=== PATIENT | female | born 1950 | race American Indian/Alaskan Native ===

== ENCOUNTER 2016-05-03 11:47 | Outpatient (CLI) | payer MEDICARE ==
--- NOTE | 2016-05-05 09:00 | Mammography Report ---
BILATERAL DIGITAL SCREENING MAMMOGRAM WITH CAD: FINDINGS: No prior studies. The images are quite limited technically due to the patient's clinical condition including being wheelchair-bound and having a protuberant abdomen which makes positioning extremely difficult. The study is read with these limitations. The parenchyma is fibrofatty with no evidence of focal masses or architectural distortion. No suspicious calcifications are seen. The axillary tail and axilla of each breast are not included on these images due to the above factors. IMPRESSION: Negative technically limited study. BI-RADS CATEGORY: 2 = Benign ACR BI-RADS MAMMOGRAPHIC CODES: 0 = Needs additional imaging evaluation; 1 = Negative; 2 = Benign; 3 = Probably benign; 4 = Suspicious; 5 = Malignant; 6 = Known biopsy-proven malignancy COMMENT: 1. Dense breast tissue, i.e., adenosis, fibrocystic changes, etc., may obscure an underlying neoplasm. 2. Approximately 10% of cancers are not detected with mammography. 3. A negative mammography report should not delay biopsy if a clinically suspicious mass is present. RECOMMENDATION: Annual screening. COMMENT: Patient follow-up letters are generated in [place].
== END 2016-05-03 11:48 | disposition home or self-care (01) ==
LOC: MAMMO 11:47
PROVIDERS: ATTEND Internal Medicine Geriatric Medicine
DX: Z12.31 Encounter for screening mammogram for malignant neoplasm of breast (principal)
CPT/HCPCS: 77067; G0202

== ENCOUNTER 2017-04-14 13:46 | Outpatient (CLI) | payer MEDICARE, OTHER ==
[2017-04-14 14:28] LABS: Blood Urea Nitrogen 13 mg/dL (7-17)
--- NOTE | 2017-04-15 16:15 | Magnetic Resonance Report ---
FINAL REPORT PROCEDURE: MR BRAIN WO/W CON TECHNIQUE: Magnetic resonance imaging of the brain was performed before and after the IV injection of paramagnetic contrast. HISTORY: MENINGIOMA COMPARISON: No prior studies are available for comparison. FINDINGS: Diffusion-weighted images failed to demonstrate any hyperintense signal abnormalities. Cerebral sulci and ventricles are within normal limits for patient's age. An extra-axial or intra-axial fluid collection is not identified. An old lacunar infarct is noted in the left thalamus. A slightly heterogeneous mass lesion measuring about 1.6 centimeters is noted in the posterior right parietal region which appears to demonstrate meningeal attachment causing cortical buckling. It is predominantly isointense on T1 and T2 weighted images not associated with any edema of the underlying brain parenchyma. Postcontrast images demonstrate diffuse heterogeneous enhancement. There is no evidence of any dural tail. A 2.5 millimeter focal area of enhancement is noted left basal ganglia without any associated distinctive focal abnormality on the noncontrast images. Posterior fossa structures are within normal limits. IMPRESSION: A right posterior parietal mass lesion most likely represents an extra-axial lesion such as meningioma. Comparison with any prior studies would be of help to differentiated from other etiologies such as a metastatic deposit. 2.5 millimeter focal enhancement in the left basal ganglia most likely represents a prominent vascular structure. Comparison with any prior studies would be of help. Otherwise follow-up studies are recommended. Old lacunar infarct right thalamus.
== END 2017-04-14 13:47 | disposition home or self-care (01) ==
LOC: MRI 13:46
PROVIDERS: ATTEND Family Medicine
DX: D32.9 Benign neoplasm of meninges, unspecified (principal); I63.8 Other cerebral infarction; I11.0 Hypertensive heart disease with heart failure; I50.9 Heart failure, unspecified; E11.9 Type 2 diabetes mellitus without complications
CPT/HCPCS: 36415; 70553; 82565; 84520; A9577

== ENCOUNTER 2017-08-31 10:00 | Day surgery (SDC) | payer MEDICARE, OTHER ==
[~2017-08-31 10:00] MED LIST: TETRACAINE 0.5% OS PRN
[2017-08-31] MEDS: VIGAMOX OS SCH ×3 (12:00→12:10)
[2017-08-31] MEDS: AK-Dilate OS SCH ×3 (12:00→12:10)
[2017-08-31] MEDS: MYDRIACYL OS SCH ×3 (12:00→12:10)
[2017-08-31] MEDS ORDERED: WATER FOR IRRIG STERILE IR ONE (12:37)
[2017-08-31] MEDS ORDERED: VERSED ONE ×2 (12:45)
[2017-08-31] MEDS ORDERED: SUBLIMAZE ONE ×2 (13:11)
[2017-08-31] MEDS ORDERED: DIAMOX PO ONE (13:19)
--- NOTE | 2017-08-31 13:20 | Operative Report ---
Operative Report Operative Report: PATIENT'S NAME: DATE OF : DATE OF SURGERY: 08/31/2017 PREOPERATIVE DIAGNOSIS: Cataract left eye POSTOPERATIVE DIAGNOSIS: Same OPERATIVE PROCEDURE: Phacoemulsification with intraocular lens implantation, left eye SURGEON: Nallely Solis M.D. SMUTTER SURGEON: Ar Lens: ao60 22.5 D ANESTHESIA: Monitored anesthesia care in combination with topical and intracameral anesthesia because of the established specific risk of reflux, arrhythmias, or anxiety attacks associated with ocular manipulation, as well as the difficulty of the morphologist to manage such potentially catastrophic events while simultaneously attempting to complete the surgical procedure and was deemed necessary for the patient's safety to have an Air Chipper present during the procedure whenever possible. An Air Chipper was utilized to regulate the intravenous sedation of the patient so the patient was cooperative yet not asleep in order for the patient to successfully maintain fixation of the eye on the operating light of the microscope. COMPLICATIONS: o surgical complications No blood loss. ALLERGIES: Codeine PROGNOSIS: Excellent INDICATIONS FOR SURGERY: The patient is undergoing surgery in the hopes of eliminating or improving these visual difficulties. PROCEDURE: After arriving at the surgery center, the patient was given topical anesthetic and dilating drops, as noted in the record. The patient was then taken into the operating room and given more anesthetic drops. The eyelids , lashes, and lid margins were scrubbed with Betadine solution, and the patient was draped. The Nurse Air Chipper administered IV sedation and monitored the patient during the procedure. The eye was then fixated with a 0.12, and a stab incision was made in the peripheral clear cornea into the anterior chamber. This was made on my left side. Viscoelastic was next used to fill the anterior chamber. The eye was once again fixated with the 0.12 forceps and a keratome was used make an incision in clear cornea peripherally on my right hand side temporally. The capsule forceps were used to open the central anterior capsule and then make a continuous round capsulotomy. Hydrodissection was carried out utilizing a cannula and balanced salt solution to delineate the cortical material from the capsule and the nucleus from the cortical material. The phaco tip was introduced into the eye and used to remove the anterior cortical material in the area of the capsulotomy. Then the phaco tip was buried into the nucleus, and a chopping instrument was introduced into the eye and used to provide countertraction in the nucleus between this instrument and the phaco tip fracturing the nucleus. This procedure was repeated multiple times, providing multiple small segments of the lens, and then the phaco tip was used to remove each of these segments. An I/A tip was then used to remove the remaining cortex. The anterior chamber was refilled with viscoelastic. An one-piece, acrylic intraocular lens was then placed into an inserting cartridge. The tip of the inserting cartridge was introduced into the keratome incision and into the anterior chamber. The implant was gently advanced through the cartridge and into the eye, where it unfolded, and both haptics were placed in the capsular bag, where it centered nicely and appeared to be well fixated. After placement of the intraocular lens, the I~and~A handpiece was placed back into the eye and used to remove the viscoelastic, including viscoelastic that was behind the optic of the intraocular lens. The anterior chamber was then filled with balanced salt solution, and hydration of the wound was used to cause swelling of the wound and more appropriate watertight closure. When the wound was found to be firm, the patient was asked to comment on how bright the light was. If there was no light perception at all or if the light was substantially dimmer than during the rest of the surgery, the amount of fluid in the eye was decompressed to lower the intraocular pressure until the patient could see the bright light again. This was done to avoid any damage or decreased blood flow to the optic nerve. MEDICATIONS APPLIED AT END OF SURGERY: One drop of Pred Forte and Vigamox The patient was given a shield to wear at night and was instructed not to rub or push on the eye. DISCHARGE SUMMARY: The patient was released in stable condition. The patient and those with the patient were given a written sheet of postoperative instructions and counseling on any abnormal laboratory studies. The patient is to see us tomorrow for follow-up in the office and is to call immediately for any difficulties. Nallely Solis M.D. Date
--- NOTE | 2017-08-31 13:21 | Short Stay Summary ---
Short Stay Documentation Date of service: 08/31/17 - History H&P: obtained from office - Allergies and Medications Current Medications: Allergies codeine Adverse Reaction (Verified 08/30/17 11:13) Nausea Home Medications Medication Instructions Recorded Confirmed Last Taken Type Carvedilol [Coreg] 6.25 mg PO BID 08/01/13 08/01/13 Unknown History Escitalopram Oxalate [Lexapro] 10 mg PO QDAY 08/01/13 08/30/17 Unknown History Gabapentin [Neurontin] 600 mg PO BID 08/01/13 08/01/13 Unknown History Hydralazine HCl [Apresoline TAB] 25 mg PO BID 08/01/13 08/01/13 Unknown History Isosorbide Mononitrate [Isosorbide 30 mg PO QDAY 08/01/13 08/30/17 Unknown History Mononitrate ER] Zolpidem [Ambien] 5 mg PO QHS PRN 08/01/13 08/30/17 Unknown History metFORMIN [Glucophage] 500 mg PO BID 08/01/13 08/30/17 Unknown History AtorvaSTATin [Lipitor] 40 mg PO QHS 08/30/17 08/30/17 Unknown History Detemir (Nf) [Levemir (Nf)] 25 units SUB-Q QHS 08/30/17 08/30/17 Unknown History Fluticasone/Vilanterol [Breo 1 inhalation INHALATION BID 08/30/17 08/30/17 Unknown History Ellipta 100-25 Mcg INH] Ipratropium/Albuter (Nf) 2 puff IH QID 08/30/17 08/30/17 Unknown History [Combivent (Nf)] Omeprazole 40 mg PO DAILY 08/30/17 08/30/17 Unknown History Potassium Chloride [K-Dur] 10 meq PO QDAY 08/30/17 08/30/17 Unknown History Active Medications Acetazolamide (Diamox) 500 mg PO ONCE ONE Stop: 08/31/17 13:20 Moxifloxacin HCl (Vigamox) 1 drops OS Q5MIN [facility] Stop: 09/02/17 07:01 Last Admin: 08/31/17 12:10 Dose: 1 drops Phenylephrine HCl (Ak-Dilate) 1 drops OS Q5MIN [facility] Stop: 09/02/17 06:16 Last Admin: 08/31/17 12:10 Dose: 1 drops Prednisolone Acetate (Pred Forte 1%) 1 drops OS QID [facility] Tetracaine HCl (Tetracaine 0.5%) 1 drops OS Q5M PRN PRN Reason: Analgesia Last Admin: 08/31/17 12:00 Dose: 1 drops Tropicamide (Mydriacyl) 1 drops OS Q5MIN [facility] Stop: 09/02/17 06:21 Last Admin: 08/31/17 12:10 Dose: 1 drops - Brief post op/procedure progress note Date of procedure: 08/31/17 Pre-op diagnosis: left cataract Post-op diagnosis: same Procedure: Phacoemulsification with intraocular lens insertion left eye Anesthesia: MAC, local Surgeon: DAMON BARAJAS Estimated blood loss: none Pathology: none Condition: stable - Disposition Condition at discharge: Poor Disposition: DC-01 TO HOME OR SELFCARE - Discharge Diagnoses (1) Nuclear sclerosis of left eye Status: Resolved Short Stay Discharge Plan Follow up with: MIKE THOMASON MD [Primary Care Provider] - 7 Days
[2017-08-31] MEDS ORDERED: PRED FORTE 1% ONE ×2 (13:55)
[2017-08-31] MEDS ORDERED: DIAMOX ONE ×2 (13:55)
[2017-08-31] MEDS ORDERED: PRED FORTE 1% OS SCH (14:00)
[2017-08-31 16:35] VITALS: BP 163/83
--- NOTE | 2017-08-31 17:33 | Anesthesia Consultation ---
Anesthesia Consult and Med Hx Date of service: 08/31/17 - Airway Anesthetic Teeth Evaluation: Good ROM Head & Neck: Adequate Mental/Hyoid Distance: Adequate Mallampati Class: Class II Intubation Access Assessment: Probably Good - Pulmonary Exam CTA: Yes - Pre-Operative Health Status ASA Pre-Surgery Classification: ASA3 Proposed Anesthetic Plan: IV Sedation - Cardiovascular System Hx Hypertension: Yes (20 YEARS) - Central Nervous System Hx Psychiatric Problems: No - Other Systems Hx Alcohol Use: No Hx Substance Use: No Hx Cancer: No
--- NOTE | 2017-08-31 17:33 | Anesthesia Day of Surgery ---
Anesthesia Day of Surgery - Day of Surgery Patient Examined: Yes Patient H&P Reviewed: Yes Patient is NPO: Yes
== END 2017-08-31 10:01 | disposition home or self-care (01) ==
LOC: OR 10:00
DX: E11.36 Type 2 diabetes mellitus with diabetic cataract (principal); I10 Essential (primary) hypertension; G47.33 Obstructive sleep apnea (adult) (pediatric); Z88.5 Allergy status to narcotic agent
CPT/HCPCS: 66984; 82962; J2250; J3010; V2632

== ENCOUNTER 2017-10-05 07:37 | Day surgery (SDC) | payer MEDICARE, OTHER ==
[~2017-10-05 07:37] MED LIST changes: +TETRACAINE 0.5% OD PRN; -TETRACAINE 0.5% OS PRN
--- NOTE | 2017-10-05 08:13 | Anesthesia Day of Surgery ---
Anesthesia Day of Surgery - Day of Surgery Patient Examined: Yes Patient H&P Reviewed: Yes Patient is NPO: Yes
[2017-10-05] MEDS: VIGAMOX OD SCH ×3 (08:15→08:31)
--- NOTE | 2017-10-05 08:15 | Anesthesia Consultation ---
Anesthesia Consult and Med Hx Date of service: 10/05/17 - Airway Anesthetic Teeth Evaluation: Good ROM Head & Neck: Adequate Mental/Hyoid Distance: Adequate Mallampati Class: Class IV Intubation Access Assessment: Possibly Difficult - Pulmonary Exam CTA: Yes - Cardiac Exam Cardiac Exam: RRR - Pre-Operative Health Status ASA Pre-Surgery Classification: ASA3 Proposed Anesthetic Plan: MAC - Pulmonary Hx Sleep Apnea: Yes - Cardiovascular System Hx Hypertension: Yes (25 YEARS) Hx Coronary Artery Disease: Yes (cardiac stent x 1.) Hx Heart Attack/AMI: No Hx Angina: Yes Hx Peripheral Vascular Disease: Yes - Central Nervous System Hx Psychiatric Problems: Yes (depression) - Endocrine Hx Non-Insulin Dependent Diabetes: Yes - Hematic Hx Anemia: Yes - Other Systems Hx Alcohol Use: No Hx Substance Use: No Hx Cancer: No
[2017-10-05] MEDS: MYDRIACYL OD SCH ×3 (08:16→08:31)
[2017-10-05] MEDS: AK-Dilate OD SCH ×3 (08:16→08:32)
[2017-10-05] MEDS ORDERED: SUBLIMAZE ONE ×2 (08:30→08:32)
[2017-10-05] MEDS ORDERED: VERSED ONE (08:32)
--- NOTE | 2017-10-05 10:25 | Operative Report ---
Operative Report Operative Report: PATIENT'S NAME: DATE OF : DATE OF SURGERY: 10/05/2017 PREOPERATIVE DIAGNOSIS: Cataract right eye POSTOPERATIVE DIAGNOSIS: Same OPERATIVE PROCEDURE: Phacoemulsification with intraocular lens implantation, right eye SURGEON: Nallely Solis M.D. [employer] GRINDER SURGEON: Ar Lens: A060 21.5 D ANESTHESIA: Monitored anesthesia care in combination with topical and intracameral anesthesia because of the established specific risk of reflux, arrhythmias, or anxiety attacks associated with ocular manipulation, as well as the difficulty of the law office receptionist to manage such potentially catastrophic events while simultaneously attempting to complete the surgical procedure and was deemed necessary for the patient's safety to have an Honey Liquefier present during the procedure whenever possible. An Honey Liquefier was utilized to regulate the intravenous sedation of the patient so the patient was cooperative yet not asleep in order for the patient to successfully maintain fixation of the eye on the operating light of the microscope. COMPLICATIONS: No surgical complications No blood loss. ALLERGIES: COEINE PROGNOSIS: Excellent INDICATIONS FOR SURGERY: The patient is undergoing surgery in the hopes of eliminating or improving these visual difficulties. PROCEDURE: After arriving at the surgery center, the patient was given topical anesthetic and dilating drops, as noted in the record. The patient was then taken into the operating room and given more anesthetic drops. The eyelids , lashes, and lid margins were scrubbed with Betadine solution, and the patient was draped. The Nurse Honey Liquefier administered IV sedation and monitored the patient during the procedure. The eye was then fixated with a 0.12, and a stab incision was made in the peripheral clear cornea into the anterior chamber. This was made on my left side. Viscoelastic was next used to fill the anterior chamber. The eye was once again fixated with the 0.12 forceps and a keratome was used make an incision in clear cornea peripherally on my right hand side temporally. The capsule forceps were used to open the central anterior capsule and then make a continuous round capsulotomy. Hydrodissection was carried out utilizing a cannula and balanced salt solution to delineate the cortical material from the capsule and the nucleus from the cortical material. The phaco tip was introduced into the eye and used to remove the anterior cortical material in the area of the capsulotomy. Then the phaco tip was buried into the nucleus, and a chopping instrument was introduced into the eye and used to provide countertraction in the nucleus between this instrument and the phaco tip fracturing the nucleus. This procedure was repeated multiple times, providing multiple small segments of the lens, and then the phaco tip was used to remove each of these segments. An I/A tip was then used to remove the remaining cortex. The anterior chamber was refilled with viscoelastic. An one-piece, acrylic intraocular lens was then placed into an inserting cartridge. The tip of the inserting cartridge was introduced into the keratome incision and into the anterior chamber. The implant was gently advanced through the cartridge and into the eye, where it unfolded, and both haptics were placed in the capsular bag, where it centered nicely and appeared to be well fixated. After placement of the intraocular lens, the I~and~A handpiece was placed back into the eye and used to remove the viscoelastic, including viscoelastic that was behind the optic of the intraocular lens. The anterior chamber was then filled with balanced salt solution, and hydration of the wound was used to cause swelling of the wound and more appropriate watertight closure. When the wound was found to be firm, the patient was asked to comment on how bright the light was. If there was no light perception at all or if the light was substantially dimmer than during the rest of the surgery, the amount of fluid in the eye was decompressed to lower the intraocular pressure until the patient could see the bright light again. This was done to avoid any damage or decreased blood flow to the optic nerve. MEDICATIONS APPLIED AT END OF SURGERY: One drop of Pred Forte and Vigamox The patient was given a shield to wear at night and was instructed not to rub or push on the eye. DISCHARGE SUMMARY: The patient was released in stable condition. The patient and those with the patient were given a written sheet of postoperative instructions and counseling on any abnormal laboratory studies. The patient is to see us tomorrow for follow-up in the office and is to call immediately for any difficulties. Nallely Solis M.D. Date
--- NOTE | 2017-10-05 10:27 | Short Stay Summary ---
Short Stay Documentation Date of service: 10/05/17 - History H&P: obtained from office - Allergies and Medications Current Medications: Allergies codeine Adverse Reaction (Verified 09/29/17 14:04) Nausea Home Medications Medication Instructions Recorded Confirmed Last Taken Type Carvedilol [Coreg] 6.25 mg PO BID 08/01/13 09/29/17 08/31/17 09:00 History Escitalopram Oxalate [Lexapro] 10 mg PO QDAY 08/01/13 09/29/17 08/30/17 History Gabapentin [Neurontin] 600 mg PO BID 08/01/13 09/29/17 08/30/17 History Hydralazine HCl [Apresoline TAB] 25 mg PO BID 08/01/13 09/29/17 08/31/17 09:00 History Isosorbide Mononitrate [Isosorbide 30 mg PO QDAY 08/01/13 09/29/17 08/31/17 09: 00 History Mononitrate ER] Zolpidem [Ambien] 5 mg PO QHS PRN 08/01/13 09/29/17 08/29/17 History metFORMIN [Glucophage] 500 mg PO BID 08/01/13 09/29/17 08/30/17 History AtorvaSTATin [Lipitor] 40 mg PO QHS 08/30/17 09/29/17 08/30/17 History Detemir (Nf) [Levemir (Nf)] 25 units SUB-Q QHS 08/30/17 09/29/17 08/29/17 History Fluticasone/Vilanterol [Breo 1 inhalation INHALATION BID 08/30/17 09/29/1708/30 History Ellipta 100-25 Mcg INH] Ipratropium/Albuter (Nf) 2 puff IH QID 08/30/17 09/29/17 08/29/17 History [Combivent (Nf)] Omeprazole 40 mg PO DAILY 08/30/17 09/29/17 08/30/17 History Potassium Chloride [K-Dur] 10 meq PO QDAY 08/30/17 09/29/17 08/30/17 History Active Medications Acetazolamide (Diamox) 500 mg PO ONCE ONE Stop: 10/05/17 11:01 Moxifloxacin HCl (Vigamox) 1 drops OD Q5MIN [facility] Stop: 10/05/17 23:59 Last Admin: 10/05/17 08:31 Dose: 1 drops Phenylephrine HCl (Ak-Dilate) 1 drops OD Q5MIN [facility] Stop: 10/07/17 23:59 Last Admin: 10/05/17 08:32 Dose: 1 drops Prednisolone Acetate (Pred Forte 1%) 1 drops OD QID [facility] Tetracaine HCl (Tetracaine 0.5%) 1 drops OD Q5M PRN PRN Reason: PREOP Stop: 10/05/17 23:59 Last Admin: 10/05/17 08:15 Dose: 1 drops Tropicamide (Mydriacyl) 1 drops OD Q5MIN COUNTS INCLUDE 234 BEDS AT [facility] Stop: 10/05/17 23:59 Last Admin: 10/05/17 08:31 Dose: 1 drops - Brief post op/procedure progress note Date of procedure: 10/05/17 Pre-op diagnosis: right cataract Post-op diagnosis: same Procedure: Phacoemulsification with intraocular lens insertion right eye Anesthesia: MAC, local Surgeon: DAMON BARAJAS Estimated blood loss: none Pathology: none Condition: stable - Disposition Condition at discharge: Good Disposition: DC-01 TO HOME OR SELFCARE - Discharge Diagnoses (1) Nuclear sclerosis of right eye Status: Resolved Short Stay Discharge Plan Follow up with: MIKE THOMASON MD [Primary Care Provider] - 7 Days Forms: Outpatient [facility]
[2017-10-05] MEDS ORDERED: DIAMOX PO ONE (11:00)
[2017-10-05] MEDS ORDERED: PRED FORTE 1% OD SCH (14:00)
[2017-10-05 19:11] VITALS: BP 141/83
== END 2017-10-05 10:35 | disposition home or self-care (01) ==
LOC: OR 07:37
DX: E11.36 Type 2 diabetes mellitus with diabetic cataract (principal); I10 Essential (primary) hypertension; Z88.5 Allergy status to narcotic agent; Z79.84 Long term (current) use of oral hypoglycemic drugs
CPT/HCPCS: 66984; 82962; J2250; J3010; V2632

== ENCOUNTER 2018-10-04 08:43 | Outpatient (CLI) | payer MEDICARE, OTHER ==
--- NOTE | 2018-10-04 16:18 | Mammography Report ---
BILATERAL DIGITAL SCREENING MAMMOGRAM with CAD: 10/04/18 08:43:00 CLINICAL: Routine screening. COMPARISON:05/03/16 FINDINGS: The examination was performed with the patient in a wheelchair and therefore positioning is suboptimal.Bilateral benign calcifications, which are mostly vascular. No mass, architectural distortion or suspicious calcifications. IMPRESSION: No mammographic evidence of malignancy. BI-RADS CATEGORY: 2 -- Benign RECOMMENDATION: Routine mammographic screening in one year. COMMENT: Patient follow-up letters are generated by our [employer] application.
== END 2018-10-04 08:44 | disposition home or self-care (01) ==
LOC: MAMMO 08:43
PROVIDERS: ATTEND Family Medicine
DX: Z12.31 Encounter for screening mammogram for malignant neoplasm of breast (principal); I11.0 Hypertensive heart disease with heart failure; I50.9 Heart failure, unspecified; K21.9 Gastro-esophageal reflux disease without esophagitis; E11.9 Type 2 diabetes mellitus without complications; E78.00 Pure hypercholesterolemia, unspecified; Z90.710 Acquired absence of both cervix and uterus
CPT/HCPCS: 77067

== ENCOUNTER 2019-01-08 17:45 | Emergency (ER) | payer MEDICARE, OTHER ==
[2019-01-08] MEDS ORDERED: ACETAMINOPHEN 650 MG RECT SUPP PR ONE ×2 (18:02→18:03)
[2019-01-08] MEDS ORDERED: ACETAMINOPHEN 325 MG RECT SUPP PR ONE (18:03)
[2019-01-08] MEDS ORDERED: NALOXONE 0.4 MG/1 ML INJ IV ONE (18:17)
[2019-01-08] MEDS ORDERED: PIPERACILLIN/TAZOBACTAM 3.375 3.375 GM/50 ML BAG IV ONE (18:19)
--- NOTE | 2019-01-08 18:20 | Emergency Department Report ---
ED Altered Mental Status HPI - General Chief Complaint: Altered Mental Status Stated Complaint: UNRESPONSIVE Time Seen by Provider: 01/08/19 18:17 Source: family, EMS Mode of arrival: Stretcher Limitations: Altered Mental Status, Physical Limitation - History of Present Illness Initial Comments: patient presents to er with weakness, sleepiness, after saying in a hot car. Upon arrival to ER her temp was 102. She denies any chest pain, sob, n/v. no abdominal pain or diarrhea. MD Complaint: altered mental status - Related Data Home Medications Medication Instructions Recorded Confirmed Last Taken Carvedilol [Coreg] 6.25 mg PO BID 08/01/13 10/05/17 10/05/17 06:30 Escitalopram Oxalate [Lexapro] 10 mg PO QDAY 08/01/13 10/05/17 10/04/17 09:00 Gabapentin [Neurontin] 600 mg PO BID 08/01/13 10/05/17 10/04/17 21:00 Hydralazine HCl [Apresoline TAB] 25 mg PO BID 08/01/13 10/05/17 10/05/17 06:30 Isosorbide Mononitrate [Isosorbide 30 mg PO QDAY 08/01/13 10/05/17 10/04/17 21:00 Mononitrate ER] Zolpidem [Ambien] 5 mg PO QHS PRN 08/01/13 10/05/17 10/04/17 21:00 metFORMIN [Glucophage] 500 mg PO BID 08/01/13 10/05/17 10/04/17 21:00 AtorvaSTATin [Lipitor] 40 mg PO QHS 08/30/17 10/05/17 10/04/17 17:00 Detemir (Nf) [Levemir (Nf)] 25 units SUB-Q QHS 08/30/17 10/05/17 10/04/17 21:00 Fluticasone/Vilanterol [Breo 1 inhalation INHALATION BID 08/30/17 10/05/17 10/04/17 21:00 Ellipta 100-25 Mcg INH] Ipratropium/Albuter (Nf) 2 puff IH QID 08/30/17 10/05/17 10/04/17 21:00 [Combivent (Nf)] Omeprazole 40 mg PO DAILY 05/10/05/17 10/04/17 09:00 Potassium Chloride [K-Dur] 10 meq PO QDAY 08/30/17 10/05/17 10/04/17 09:00 Allergies Allergy/AdvReac Type Severity Reaction Status Date / Time codeine AdvReac Nausea Verified 09/29/17 14:04 ED Review of Systems ROS: Stated complaint: UNRESPONSIVE Other details as noted in HPI Comment: All other systems reviewed and negative Constitutional: fever ENT: denies: ear pain Respiratory: denies: cough Gastrointestinal: denies: abdominal pain, nausea Genitourinary: denies: as per HPI, urgency Musculoskeletal: denies: back pain Skin: denies: rash, lesions ED Past Medical Hx - Past Medical History Previous Medical History?: Yes Hx Hypertension: Yes (23 YEARS) Hx Heart Attack/AMI: No Hx Congestive Heart Failure: Yes Hx Diabetes: Yes (18 YEARS) Hx GERD: Yes Hx Arthritis: Yes Hx Tuberculosis: (+PPD, - CXR) Hx HIV: No - Surgical History Past Surgical History?: Yes Hx Cholecystectomy: Yes Additional Surgical History: R AKA, " I don't have a R hip" - Social History Smoking Status: Never Smoker Substance Use Type: None - Medications Home Medications: Home Medications Medication Instructions Recorded Confirmed Last Taken Type Carvedilol [Coreg] 6.25 mg PO BID 08/01/13 10/05/17 10/05/17 06:30 History Escitalopram Oxalate [Lexapro] 10 mg PO QDAY 08/01/13 10/05/17 10/04/17 09:00 History Gabapentin [Neurontin] 600 mg PO BID 08/01/13 10/05/17 10/04/17 21:00 History Hydralazine HCl [Apresoline TAB] 25 mg PO BID 08/01/13 10/05/17 10/05/17 06:30 History Isosorbide Mononitrate [Isosorbide 30 mg PO QDAY 08/01/13 10/05/17 10/04/17 21:00 History Mononitrate ER] Zolpidem [Ambien] 5 mg PO QHS PRN 08/01/13 10/05/17 10/04/17 21:00 History metFORMIN [Glucophage] 500 mg PO BID 08/01/13 10/05/17 10/04/17 21:00 History AtorvaSTATin [Lipitor] 40 mg PO QHS 08/30/17 10/05/17 10/04/17 17:00 History Detemir (Nf) [Levemir (Nf)] 25 units SUB-Q QHS 08/30/17 10/05/17 10/04/17 21:00 History Fluticasone/Vilanterol [Breo 1 inhalation INHALATION BID 08/30/17 10/05/17 10/04/17 21:00 History Ellipta 100-25 Mcg INH] Ipratropium/Albuter (Nf) 2 puff IH QID 08/30/17 10/05/17 10/04/17 21:00 History [Combivent (Nf)] Omeprazole 40 mg PO DAILY 08/30/17 10/05/17 10/04/17 09:00 History Potassium Chloride [K-Dur] 10 meq PO QDAY 08/30/17 10/05/17 10/04/17 09:00 History ED Physical Exam - General Limitations: Altered Mental Status, Physical Limitation General appearance: alert, in no apparent distress - Head Head exam: Present: atraumatic, normocephalic - Eye Eye exam: Present: normal appearance, PERRL, EOMI Pupils: Present: normal accommodation - ENT ENT exam: Present: normal exam, normal orophraynx - Neck Neck exam: Present: normal inspection - Respiratory Respiratory exam: Present: normal lung sounds bilaterally - Cardiovascular Cardiovascular Exam: Present: regular rate, normal rhythm - GI/Abdominal GI/Abdominal exam: Present: soft, normal bowel sounds - Back Exam Back exam: Present: normal inspection - Neurological Exam Neurological exam: Present: alert, oriented X3, CN II-XII intact - Psychiatric Psychiatric exam: Present: normal affect - Assessment Assessment Interval: Baseline - Level of Consciousness 1a. Level of Consciousness: alert/keenly responsive - LOC Questions 1b. LOC Questions: answers both correctly - LOC Command 1c. LOC Commands: performs tasks correctly - Best Gaze 2. Best Gaze: normal - Visual 3. Visual: no visual loss - Facial Palsy 4. Facial Palsy: normal symmetrical movement - Motor Arm 5a. Motor Arm Left: no drift 5b. Motor Arm Right: no drift - Motor Leg 6a. Motor Leg Left: no drift 6b. Motor Leg Right: no drift - Limb Ataxia 7. Limb Ataxia: absent - Sensory 8. Sensory: normal - Best Language 9. Best Language: no aphasia - Dysarthria 10. Dysarthria: normal - Extinction and Inattention 11. Extinction/Inattention: no abnormality - Scoring Total Score: 0 Stroke Severity: No Stroke Symptoms ED Course Vital Signs 01/08/19 01/08/19 01/08/19 17:54 18:44 19:00 Temperature 102.8 F H 102.8 F H Pulse Rate 104 H 99 H Respiratory 15 25 H Rate Blood Pressure 114/54 Blood Pressure 124/56 [Right] O2 Sat by Pulse 93 96 Oximetry 01/08/19 01/08/19 01/08/19 19:15 19:26 20:00 Temperature 98.6 F Pulse Rate 93 H Respiratory 26 H Rate Blood Pressure 122/49 Blood Pressure [Right] O2 Sat by Pulse 96 95 Oximetry 01/08/19 20:30 Temperature Pulse Rate 92 H Respiratory 21 Rate Blood Pressure 122/60 Blood Pressure [Right] O2 Sat by Pulse 94 Oximetry - Lab Data Result diagrams: 01/08/19 18:00 01/08/19 18:00 Lab Results 01/08/19 01/08/19 01/08/19 Range/Units 17:35 17:35 17:58 WBC (4.5-11.0) K/mm3 RBC (3.65-5.03) M/mm3 Hgb (10.1-14.3) gm/dl Hct (30.3-42.9) % MCV (79-97) fl MCH (28-32) pg MCHC (30-34) % RDW (13.2-15.2) % Plt Count (140-440) K/mm3 Lymph % (Auto) (13.4-35.0) % [place] % (Auto) (0.0-7.3) % Eos % (Auto) (0.0-4.3) % Baso % (Auto) (0.0-1.8) % Lymph # (1.2-5.4) K/mm3 [place] # (0.0-0.8) K/mm3 Eos # (0.0-0.4) K/mm3 Baso # (0.0-0.1) K/mm3 Seg Neutrophils % (40.0-70.0) % Seg Neutrophils # (1.8-7.7) K/mm3 PT (12.2-14.9) Sec. INR (0.87-1.13) APTT (24.2-36.6) Sec. POC ABG pH (7.35-7.45) POC ABG pCO2 (35-45) POC ABG pO2 (80-105) POC ABG HCO3 (22-26 mml/L) POC ABG Total CO2 (23-27mmol/L) POC ABG O2 Sat POC ABG Base Excess ((-2) - (+3)mmol/L) FiO2 % Sodium (137-145) mmol/L Potassium (3.6-5.0) mmol/L Chloride (98-107) mmol/L Carbon Dioxide (22-30) mmol/L Anion Gap mmol/L BUN (7-17) mg/dL Creatinine (0.7-1.2) mg/dL Estimated GFR ml/min BUN/Creatinine Ratio % Glucose (65-100) mg/dL POC Glucose 100 (70-105) Lactic Acid (0.7-2.0) mmol/L Calcium (8.4-10.2) mg/dL Total Bilirubin (0.1-1.2) mg/dL AST (5-40) units/L ALT (7-56) units/L Alkaline Phosphatase (35-129) units/L Total Creatine Kinase (30-135) units/L Troponin T (0.00-0.029) ng/mL Total Protein (6.3-8.2) g/dL Albumin (3.9-5) g/dL Albumin/Globulin Ratio % Urine Color Yellow (Yellow) Urine Turbidity Clear (Clear) Urine pH 7.0 (5.0-7.0) Ur Specific Ruth 1.014 (1.003-1.030) Urine Protein 30 mg/dl (Negative) mg/dL Urine Glucose (UA) Neg (Negative) mg/dL Urine Ketones Neg (Negative) mg/dL Urine Blood Neg (Negative) Urine Nitrite Neg (Negative) Urine Bilirubin Neg (Negative) Urine Urobilinogen < 2.0 (<2.0) mg/dL Ur Leukocyte Esterase Neg (Negative) Urine WBC (Auto) 1.0 (0.0-6.0) /HPF Urine RBC (Auto) 2.0 (0.0-6.0) /HPF Urine Opiates Screen Presumptive negative Urine Methadone Screen Presumptive negative Ur Barbiturates Screen Presumptive negative Ur Phencyclidine Scrn Presumptive negative Ur Amphetamines Screen Presumptive negative U Benzodiazepines Scrn Presumptive negative Urine Cocaine Screen Presumptive negative U Marijuana (THC) Screen Presumptive negative Drugs of Abuse Note Disclamer Plasma/Serum Alcohol (0-0.07) % 01/08/19 01/08/19 01/08/19 Range/Units 18:00 18:00 18:00 WBC 9.3 (4.5-11.0) K/mm3 RBC 4.30 (3.65-5.03) M/mm3 Hgb 11.5 (10.1-14.3) gm/dl Hct 35.7 (30.3-42.9) % MCV 83 (79-97) fl MCH 27 L (28-32) pg MCHC 32 (30-34) % RDW 14.1 (13.2-15.2) % Plt Count 192 (140-440) K/mm3 Lymph % (Auto) 12.5 L (13.4-35.0) % [place] % (Auto) 8.1 H (0.0-7.3) % Eos % (Auto) 4.3 (0.0-4.3) % Baso % (Auto) 0.8 (0.0-1.8) % Lymph # 1.2 (1.2-5.4) K/mm3 [place] # 0.8 (0.0-0.8) K/mm3 Eos # 0.4 (0.0-0.4) K/mm3 Baso # 0.1 (0.0-0.1) K/mm3 Seg Neutrophils % 74.3 H (40.0-70.0) % Seg Neutrophils # 6.9 (1.8-7.7) K/mm3 PT 13.4 (12.2-14.9) Sec. INR 1.05 (0.87-1.13) APTT 24.7 (24.2-36.6) Sec. POC ABG pH (7.35-7.45) POC ABG pCO2 (35-45) POC ABG pO2 (80-105) POC ABG HCO3 (22-26 mml/L) POC ABG Total CO2 (23-27mmol/L) POC ABG O2 Sat POC ABG Base Excess ((-2) - (+3)mmol/L) FiO2 % Sodium (137-145) mmol/L Potassium (3.6-5.0) mmol/L Chloride (98-107) mmol/L Carbon Dioxide (22-30) mmol/L Anion Gap mmol/L BUN (7-17) mg/dL Creatinine (0.7-1.2) mg/dL Estimated GFR ml/min BUN/Creatinine Ratio % Glucose (65-100) mg/dL POC Glucose (70-105) Lactic Acid 0.90 (0.7-2.0) mmol/L Calcium (8.4-10.2) mg/dL Total Bilirubin (0.1-1.2) mg/dL AST (5-40) units/L ALT (7-56) units/L Alkaline Phosphatase (35-129) units/L Total Creatine Kinase (30-135) units/L Troponin T (0.00-0.029) ng/mL Total Protein (6.3-8.2) g/dL Albumin (3.9-5) g/dL Albumin/Globulin Ratio % Urine Color (Yellow) Urine Turbidity (Clear) Urine pH (5.0-7.0) Ur Specific Ruth (1.003-1.030) Urine Protein (Negative) mg/dL Urine Glucose (UA) (Negative) mg/dL Urine Ketones (Negative) mg/dL Urine Blood (Negative) Urine Nitrite (Negative) Urine Bilirubin (Negative) Urine Urobilinogen (<2.0) mg/dL Ur Leukocyte Esterase (Negative) Urine WBC (Auto) (0.0-6.0) /HPF Urine RBC (Auto) (0.0-6.0) /HPF Urine Opiates Screen Urine Methadone Screen Ur Barbiturates Screen Ur Phencyclidine Scrn Ur Amphetamines Screen U Benzodiazepines Scrn Urine Cocaine Screen U Marijuana (THC) Screen Drugs of Abuse Note Plasma/Serum Alcohol (0-0.07) % 01/08/19 01/08/19 01/08/19 Range/Units 18:00 18:00 19:25 WBC (4.5-11.0) K/mm3 RBC (3.65-5.03) M/mm3 Hgb (10.1-14.3) gm/dl Hct (30.3-42.9) % MCV (79-97) fl MCH (28-32) pg MCHC (30-34) % RDW (13.2-15.2) % Plt Count (140-440) K/mm3 Lymph % (Auto) (13.4-35.0) % [place] % (Auto) (0.0-7.3) % Eos % (Auto) (0.0-4.3) % Baso % (Auto) (0.0-1.8) % Lymph # (1.2-5.4) K/mm3 [place] # (0.0-0.8) K/mm3 Eos # (0.0-0.4) K/mm3 Baso # (0.0-0.1) K/mm3 Seg Neutrophils % (40.0-70.0) % Seg Neutrophils # (1.8-7.7) K/mm3 PT (12.2-14.9) Sec. INR (0.87-1.13) APTT (24.2-36.6) Sec. POC ABG pH 7.390 (7.35-7.45) POC ABG pCO2 38.7 (35-45) POC ABG pO2 76 L (80-105) POC ABG HCO3 23.4 (22-26 mml/L) POC ABG Total CO2 25 (23-27mmol/L) POC ABG O2 Sat 95 POC ABG Base Excess -2 ((-2) - (+3)mmol/L) FiO2 36 % Sodium 142 (137-145) mmol/L Potassium 4.8 (3.6-5.0) mmol/L Chloride 106.5 (98-107) mmol/L Carbon Dioxide 21 L (22-30) mmol/L Anion Gap 19 mmol/L BUN 31 H (7-17) mg/dL Creatinine 1.2 (0.7-1.2) mg/dL Estimated GFR 54 ml/min BUN/Creatinine Ratio 26 % Glucose 106 H (65-100) mg/dL POC Glucose (70-105) Lactic Acid (0.7-2.0) mmol/L Calcium 8.3 L (8.4-10.2) mg/dL Total Bilirubin 0.40 (0.1-1.2) mg/dL AST 33 (5-40) units/L ALT 11 (7-56) units/L Alkaline Phosphatase 107 (35-129) units/L Total Creatine Kinase 51 (30-135) units/L Troponin T < 0.010 (0.00-0.029) ng/mL Total Protein 7.9 (6.3-8.2) g/dL Albumin 3.3 L (3.9-5) g/dL Albumin/Globulin Ratio 0.7 % Urine Color (Yellow) Urine Turbidity (Clear) Urine pH (5.0-7.0) Ur Specific Ruth (1.003-1.030) Urine Protein (Negative) mg/dL Urine Glucose (UA) (Negative) mg/dL Urine Ketones (Negative) mg/dL Urine Blood (Negative) Urine Nitrite (Negative) Urine Bilirubin (Negative) Urine Urobilinogen (<2.0) mg/dL Ur Leukocyte Esterase (Negative) Urine WBC (Auto) (0.0-6.0) /HPF Urine RBC (Auto) (0.0-6.0) /HPF Urine Opiates Screen Urine Methadone Screen Ur Barbiturates Screen Ur Phencyclidine Scrn Ur Amphetamines Screen U Benzodiazepines Scrn Urine Cocaine Screen U Marijuana (THC) Screen Drugs of Abuse Note Plasma/Serum Alcohol < 0.01 (0-0.07) % 01/08/19 Range/Units 20:37 WBC (4.5-11.0) K/mm3 RBC (3.65-5.03) M/mm3 Hgb (10.1-14.3) gm/dl Hct (30.3-42.9) % MCV (79-97) fl MCH (28-32) pg MCHC (30-34) % RDW (13.2-15.2) % Plt Count (140-440) K/mm3 Lymph % (Auto) (13.4-35.0) % [place] % (Auto) (0.0-7.3) % Eos % (Auto) (0.0-4.3) % Baso % (Auto) (0.0-1.8) % Lymph # (1.2-5.4) K/mm3 [place] # (0.0-0.8) K/mm3 Eos # (0.0-0.4) K/mm3 Baso # (0.0-0.1) K/mm3 Seg Neutrophils % (40.0-70.0) % Seg Neutrophils # (1.8-7.7) K/mm3 PT (12.2-14.9) Sec. INR (0.87-1.13) APTT (24.2-36.6) Sec. POC ABG pH (7.35-7.45) POC ABG pCO2 (35-45) POC ABG pO2 (80-105) POC ABG HCO3 (22-26 mml/L) POC ABG Total CO2 (23-27mmol/L) POC ABG O2 Sat POC ABG Base Excess ((-2) - (+3)mmol/L) FiO2 % Sodium (137-145) mmol/L Potassium (3.6-5.0) mmol/L Chloride (98-107) mmol/L Carbon Dioxide (22-30) mmol/L Anion Gap mmol/L BUN (7-17) mg/dL Creatinine (0.7-1.2) mg/dL Estimated GFR ml/min BUN/Creatinine Ratio % Glucose (65-100) mg/dL POC Glucose 108 H (70-105) Lactic Acid (0.7-2.0) mmol/L Calcium (8.4-10.2) mg/dL Total Bilirubin (0.1-1.2) mg/dL AST (5-40) units/L ALT (7-56) units/L Alkaline Phosphatase (35-129) units/L Total Creatine Kinase (30-135) units/L Troponin T (0.00-0.029) ng/mL Total Protein (6.3-8.2) g/dL Albumin (3.9-5) g/dL Albumin/Globulin Ratio % Urine Color (Yellow) Urine Turbidity (Clear) Urine pH (5.0-7.0) Ur Specific Ruth (1.003-1.030) Urine Protein (Negative) mg/dL Urine Glucose (UA) (Negative) mg/dL Urine Ketones (Negative) mg/dL Urine Blood (Negative) Urine Nitrite (Negative) Urine Bilirubin (Negative) Urine Urobilinogen (<2.0) mg/dL Ur Leukocyte Esterase (Negative) Urine WBC (Auto) (0.0-6.0) /HPF Urine RBC (Auto) (0.0-6.0) /HPF Urine Opiates Screen Urine Methadone Screen Ur Barbiturates Screen Ur Phencyclidine Scrn Ur Amphetamines Screen U Benzodiazepines Scrn Urine Cocaine Screen U Marijuana (THC) Screen Drugs of Abuse Note Plasma/Serum Alcohol (0-0.07) % Critical care attestation.: If time is entered above; I have spent that time in minutes in the direct care of this critically ill patient, excluding procedure time. ED Disposition Clinical Impression: Essential hypertension Heat exposure Qualifiers: Encounter type: initial encounter Qualified Code(s): T67.9XXA - Effect of heat and light, unspecified, initial encounter Disposition: DC-01 TO HOME OR SELFCARE Is pt being admited?: No Does the pt Need Aspirin: No Condition: Stable Instructions: Hypertension (ED) Referrals: RUTH ALONSO MD [Primary Care Provider] - 3-5 Days
[2019-01-08 18:30] LABS: Basophils # (Auto) 0.1 K/mm3 (0.0-0.1); Basophils % (Auto) 0.8 % (0.0-1.8); Eosinophils # (Auto) 0.4 K/mm3 (0.0-0.4); Eosinophils % (Auto) 4.3 % (0.0-4.3); Hematocrit 35.7 % (30.3-42.9); Hemoglobin 11.5 gm/dl (10.1-14.3); Lymphocytes # (Auto) 1.2 K/mm3 (1.2-5.4); Lymphocytes % (Auto) 12.5 % (13.4-35.0); Mean Corpuscular HGB Conc 32 % (30-34); Mean Corpuscular Volume 83 fl (79-97); Monocytes # (Auto) 0.8 K/mm3 (0.0-0.8); Monocytes % (Auto) 8.1 % (0.0-7.3); Platelet Count 192 K/mm3 (140-440); Red Cell Distribution Width 14.1 % (13.2-15.2)
[2019-01-08 18:39] LABS: INR 1.05 (0.87-1.13)
[2019-01-08 18:40] LABS: Partial Thromboplastin Time 24.7 Sec. (24.2-36.6)
[2019-01-08 18:47] LABS: Alanine Aminotransferase 11 units/L (7-56); Albumin 3.3 g/dL (3.9-5); BUN/Creatinine Ratio 26; Blood Urea Nitrogen 31 mg/dL (7-17); Calcium 8.3 mg/dL (8.4-10.2); Hemolysis Index 71
[2019-01-08 19:00] LABS: Bilirubin,Urine NEG (Negative); Blood,Urine NEG (Negative); Color,Urine Yellow (Yellow); Urobilinogen,Urine < 2.0 mg/dL (<2.0)
[2019-01-08 19:08] LABS: Amphetamine Screen,Urine PRESUMPTIVE NEGATIVE; Benzodiazepines Screen,Urine PRESUMPTIVE NEGATIVE; Cannabinoid Screen,Urine PRESUMPTIVE NEGATIVE; Cocaine Screen,Urine PRESUMPTIVE NEGATIVE; Methadone Screen,Urine PRESUMPTIVE NEGATIVE; Opiate Screen,Urine PRESUMPTIVE NEGATIVE
--- NOTE | 2019-01-08 19:38 | XRay Report ---
CHEST 1 VIEW 6:33 PM INDICATION / CLINICAL INFORMATION: Altered Mental Status. Unresponsive. COMPARISON: None available. FINDINGS: SUPPORT DEVICES: None. HEART / MEDIASTINUM: There is moderate generalized enlargement of the cardiopericardial silhouette. T he aorta is normal in caliber. Pulmonary vasculature is normal. LUNGS / PLEURA: No significant pulmonary or pleural abnormality. No pneumothorax. ADDITIONAL FINDINGS: There are mild degenerative changes involving both shoulders. IMPRESSION: Moderate generalized enlargement of the cardiopericardial silhouette. No acute pulmonary disease. Signer Name: Fabrice Sales MD Signed: 01/08/2019 7:34 PM Workstation Name: [id number]
--- NOTE | 2019-01-08 20:14 | Cat Scan Report ---
CT head/brain wo con INDICATION / CLINICAL INFORMATION: 68 years Female; Altered Mental Status. TECHNIQUE: Routine CT head without contrast. All CT scans at this location are performed using CT dos e reduction for ALARA by means of automated exposure control. Study limited by patient positioning. COMPARISON: Prior - 04/19/2009 FINDINGS: BRAIN / INTRACRANIAL CONTENTS: Presumed, calcified meningioma is seen near the precuneus on the right , measuring 17 mm in maximum dimension. No significant interval change from prior exam appreciated. Otherwise, no acute hemorrhage, mass effect, midline shift, hydrocephalus, or acute, large territoria l infarct. Mild cerebral atrophy. There are minimal areas of decreased attenuation in the white matter of the cerebral hemispheres. The se are nonspecific findings and may be related to microangiopathy (hypertension, diabetes, atheroscle rosis), given the patient's age. It might be difficult to evaluate for small areas of ischemia withou t diffusion imaging by MRI. CRANIOCERVICAL JUNCTION: No significant abnormality. ORBITS: No significant abnormality of visualized orbits. SINUSES / MASTOIDS: Mild to moderate mucosal thickening seen in the ethmoids. ADDITIONAL FINDINGS: Atherosclerotic disease is seen in the anterior and posterior circulation. IMPRESSION: 1. No focal intra-axial mass, hemorrhage, hydrocephalus, or acute, large territorial infarct. Signer Name: Dhruv Peña MD, III Signed: 01/08/2019 8:10 PM Workstation Name: [id number]
[2019-01-08 20:36] VITALS: BP 122/60
== END 2019-01-08 23:31 | disposition home or self-care (01) ==
LOC: ED 17:45
DX: I10 Essential (primary) hypertension (principal); T67.9XXA Effect of heat and light, unspecified, initial encounter; E11.9 Type 2 diabetes mellitus without complications; K21.9 Gastro-esophageal reflux disease without esophagitis; M19.90 Unspecified osteoarthritis, unspecified site; Z88.5 Allergy status to narcotic agent; Z79.899 Other long term (current) drug therapy; Z90.49 Acquired absence of other specified parts of digestive tract; Z89.611 Acquired absence of right leg above knee; X58.XXXA Exposure to other specified factors, initial encounter
CPT/HCPCS: 70450; 71045; 80053; 80307; 81001; 82140; 82550; 82803; 82962; 84484; 85025; 85610; 85730; 87040; 87086; 93005; 93010; 94760; 96365; 96375; 99285; J2310; J2543; 80320; G0480

== ENCOUNTER 2021-05-26 10:23 | Outpatient (CLI) | payer MEDICARE, OTHER ==
--- NOTE | 2021-05-26 14:11 | Cat Scan Report ---
CT ABDOMEN AND PELVIS WITH CONTRAST INDICATION / CLINICAL INFORMATION: CHRONIC VENOUS HYPERTENSION, COMPRESSION OF VEIN, AND PELVIC AND P ERINEAL PAIN OMNI 300 100 ML . TECHNIQUE: Axial CT images were obtained through the abdomen and pelvis after 100 cc of Omnipaque 300 IV contras t. Sagittal and coronal reformatted images. All CT scans at this location are performed using CT dose reduction for ALARA by means of automated exposure control. COMPARISON: None available. FINDINGS: LOWER CHEST: There is borderline to mild cardiomegaly. A moderate pericardial effusion is present. Sm all layering right pleural effusion. The visualized lung bases are adequately aerated. LIVER: No significant abnormality. GALLBLADDER: Surgically removed BILE DUCTS: No significant abnormality. PANCREAS: No significant abnormality. SPLEEN: No significant abnormality. ADRENALS: No significant abnormality. KIDNEYS: There is mild cortical thinning bilaterally. No evidence for nephrolithiasis, cystic disease , mass or hydronephrosis. The ureters are normal course and caliber. STOMACH and SMALL BOWEL: No significant abnormality. COLON: No significant abnormality. Mild diverticular changes are noted. APPENDIX: No significant abnormality. PERITONEUM: No free fluid. No free air. No fluid collection. LYMPH NODES: No significant adenopathy. AORTA and ARTERIES: Moderate to severe atherosclerotic calcification without acute abnormality. IVC and VEINS: The venous structures are poorly opacified. Pelvic veins appear mildly engorged. There is no evidence for venous compression such as May Thurner syndrome. URINARY BLADDER: No significant abnormality. REPRODUCTIVE ORGANS: Hysterectomy. ADDITIONAL FINDINGS: None. SKELETAL SYSTEM: Multilevel degenerative changes throughout the spine. Severely deformed or absent ri ght femoral head. IMPRESSION: No acute process is identified. No evidence for venous compression. Mild cardiomegaly and moderate pericardial effusion. Trace right pleural effusion. Moderate to severe atherosclerotic disease throughout the arterial structures. Mild cortical thinning in both kidneys. Mild diverticular changes in the colon. Signer Name: Palmer Bright Jr, MD Signed: 05/26/2021 2:07 PM Workstation Name: [id number]
== END 2021-05-26 10:24 | disposition home or self-care (01) ==
LOC: CT 10:23
PROVIDERS: ATTEND Radiology Diagnostic Radiology
DX: K57.30 Diverticulosis of large intestine without perforation or abscess without bleeding (principal); I87.322 Chronic venous hypertension (idiopathic) with inflammation of left lower extremity; I87.1 Compression of vein; I67.1 Cerebral aneurysm, nonruptured; I51.7 Cardiomegaly; J90 Pleural effusion, not elsewhere classified; I31.3 Pericardial effusion (noninflammatory); I70.0 Atherosclerosis of aorta; M47.819 Spondylosis without myelopathy or radiculopathy, site unspecified; Z90.711 Acquired absence of uterus with remaining cervical stump
CPT/HCPCS: 36415; 74177; 82565; 84520; Q9967

== ENCOUNTER 2021-06-22 06:18 | Inpatient (IN) | payer MEDICARE, OTHER ==
--- NOTE | 2021-06-22 06:38 | Emergency Department Report ---
HPI - General Time Seen by Provider: 06/22/21 06:24 - HPI HPI: Room 1 The patient is a 71-year-old female present with a chief complaint of shortness of breath. The patient states she is had worsening shortness of breath over the past week. Patient states her shortness of breath is constant and worsens when she lies flat. Patient denies history of cough or fever. The patient states approximately 2 to 3 days ago she had chest pressure which lasted approximately 2 minutes then resolved. Patient states she has not had any chest discomfort since that episode. Patient has history of heart failure and states she has been compliant with her Lasix. Patient feels as though she is swelling in her abdomen and left lower extremity. Patient states she contacted her dial marker this morning Dr. 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, hysterectomy - Family History Family history: no significant - Social History Smoking Status: Never Smoker Substance Use Type: None (Denies illicit drug use) - Medications Home Medications: Home Medications Medication Instructions Recorded Confirmed Last Taken Type Escitalopram Oxalate [Lexapro] 10 mg PO QDAY 08/01/13 10/05/17 10/04/17 09:00 History Gabapentin [Neurontin] 600 mg PO BID 08/01/13 10/05/17 10/04/17 21:00 History Hydralazine HCl [Apresoline TAB] 25 mg PO BID 08/01/13 10/05/17 10/05/17 06:30 History Isosorbide Mononitrate [Isosorbide 30 mg PO QDAY 08/01/13 10/05/17 10/04/17 21:00 History Mononitrate ER] Zolpidem [Ambien] 5 mg PO QHS PRN 08/01/13 10/05/17 10/04/17 21:00 History carvediloL [Coreg] 6.25 mg PO BID 08/01/13 10/05/17 10/05/17 06:30 History metFORMIN [Glucophage] 500 mg PO BID 08/01/13 10/05/17 10/04/17 21:00 History AtorvaSTATin [Lipitor] 40 mg PO QHS 08/30/17 10/05/17 10/04/17 17:00 History Detemir (Nf) [Levemir (Nf)] 25 units SUB-Q QHS 08/30/17 10/05/17 10/04/17 21:00 History Fluticasone/Vilanterol [Breo 1 inhalation INHALATION BID 08/30/17 10/05/17 10/04/17 21:00 History Ellipta 100-25 Mcg INH] Ipratropium/Albuter (Nf) 2 puff IH QID 08/30/17 10/05/17 10/04/17 21:00 History [Combivent (Nf)] Omeprazole 40 mg PO DAILY 08/30/17 10/05/17 10/04/17 09:00 History Potassium Chloride [K-Dur] 10 meq PO QDAY 08/30/17 10/05/17 10/04/17 09:00 History ED Review of Systems ROS: Stated complaint: CHASTITY Other details as noted in HPI Constitutional: denies: fever Eyes: denies: eye pain ENT: denies: throat pain Respiratory: orthopnea, shortness of breath, SOB with exertion. denies: cough Cardiovascular: chest pain, dyspnea on exertion, orthopnea Endocrine: no symptoms reported Gastrointestinal: denies: nausea, vomiting Genitourinary: denies: dysuria Musculoskeletal: denies: back pain Neurological: denies: headache Physical Exam - Physical Exam Physical Exam: GENERAL: The patient is well-developed well-nourished female lying on stretcher not appearing to be in acute distress. [] HEENT: Normocephalic. Atraumatic. Extraocular motions are intact. Patient has moist mucous membranes. NECK: Supple. Trachea midline CHEST/LUNGS: Clear to auscultation. There is no respiratory distress noted. HEART/CARDIOVASCULAR: Regular. There is no tachycardia. There is no gallop rub or murmur. ABDOMEN: Abdomen is soft, nontender. Patient has normal bowel sounds. There is no abdominal distention. SKIN: There is no rash. There is 1+ left lower extremity tough pitting edema. There is no diaphoresis. NEURO: The patient is awake, alert, and oriented. The patient is cooperative. The patient has no focal neurologic deficits. The patient has normal speech. GCS 15 MUSCULOSKELETAL: There is a right AKA ED Medical Decision Making - Lab Data Result diagrams: 06/22/21 06:52 06/22/21 06:51 Laboratory Tests 06/22/21 06/22/21 06/22/21 06:51 06:51 06:51 WBC RBC Hgb Hct MCV MCH MCHC RDW Plt Count Lymph % (Auto) [place] % (Auto) Eos % (Auto) Baso % (Auto) Lymph # (Auto) [place] # (Auto) Eos # (Auto) Baso # (Auto) Seg Neutrophils % Seg Neutrophils # PT 15.9 H INR 1.14 H VBG pH Sodium 142 Potassium 4.6 Chloride 106.4 Carbon Dioxide 24 Anion Gap 16 BUN 16 Creatinine 1.1 Estimated GFR 59 BUN/Creatinine Ratio 15 Glucose 138 H Calcium 9.1 Total Bilirubin 0.70 AST 19 ALT 12 Alkaline Phosphatase 108 Total Creatine Kinase 53 CK-MB (CK-2) 1.8 CK-MB (CK-2) Rel Index 3.3 Troponin T < 0.010 NT-Pro-B Natriuret Pep Total Protein 7.7 Albumin 3.3 L Albumin/Globulin Ratio 0.8 TSH 2.970 Free T4 1.45 06/22/21 06/22/21 06/22/21 06:51 06:52 06:52 WBC 5.0 RBC 4.33 Hgb 11.2 Hct 35.6 MCV 82 MCH 26 L MCHC 32 RDW 16.2 H Plt Count 114 L Lymph % (Auto) 12.4 L [place] % (Auto) 12.4 H Eos % (Auto) 3.3 Baso % (Auto) 0.9 Lymph # (Auto) 0.6 L [place] # (Auto) 0.6 Eos # (Auto) 0.2 Baso # (Auto) 0.0 Seg Neutrophils % 71.0 H Seg Neutrophils # 3.5 PT INR VBG pH 7.337 Sodium Potassium Chloride Carbon Dioxide Anion Gap BUN Creatinine Estimated GFR BUN/Creatinine Ratio Glucose Calcium Total Bilirubin AST ALT Alkaline Phosphatase Total Creatine Kinase CK-MB (CK-2) CK-MB (CK-2) Rel Index Troponin T NT-Pro-B Natriuret Pep 9614 H Total Protein Albumin Albumin/Globulin Ratio TSH Free T4 - EKG Data -: EKG Interpreted by Me EKG shows normal: QRS complexes Rate: normal - EKG Data When compared to previous EKG there are: previous EKG unavailable Interpretation: nonspecific ST-T wave bev, other (Unable to appreciate definite P waves on EKG. Possible A. fib at a rate of 66 bpm.) - Radiology Data Radiology results: report reviewed (Chest x-ray), image reviewed (Chest x-ray) interpreted by me: Chest [id number], CHF. No pneumothorax [facility] [address] [place] [address] XRay Report Signed Patient: JOSE CONTE MR#: [id number] : 1950 Acct:[id number] Age/Sex: 71 / F ADM Date: 06/22/21 Loc: ED Attending Dr: Ordering Physician: PANCHITO GUTIERREZ MD Date of Service: 06/22/21 Procedure(s): XR chest 1V ap Accession Number(s): [id number] cc: PANCHITO GUTIERREZ MD Fluoro Time In Minutes: CHEST 1 VIEW 06/22/2021 6:26 AM INDICATION / CLINICAL INFORMATION: Shortness of breath. COMPARISON: 01/08/2019. FINDINGS: SUPPORT DEVICES: None. HEART / MEDIASTINUM: Prominent cardiomegaly remains. LUNGS / PLEURA: Bilateral opacity left greater than right. More linear opacity right mid zone. No pneumothorax. ADDITIONAL FINDINGS: No significant additional findings. IMPRESSION: 1. Mild congestive failure. 2. Atelectasis right mid zone. Signer Name: Bryan Schulz MD Signed: 06/22/2021 6:52 AM Workstation Name: [id number] Transcribed By: ES Dictated By: Bryan Schulz MD Electronically Authenticated By: Bryan Schulz MD Signed Date/Time: 06/22/21651 DD/ 1 TD/TT: - Differential Diagnosis CHF exacerbation, pneumonia, bronchitis, ACS Critical care attestation.: If time is entered above; I have spent that time in minutes in the direct care of this critically ill patient, excluding procedure time. ED Disposition Clinical Impression: CHF exacerbation Disposition: 09 ADMITTED INPATIENT Is pt being admited?: Yes Does the pt Need Aspirin: Yes Condition: Fair Referrals: ELISSA PIERRE MD [Primary Care Provider] - 3-5 Days Time of Disposition: 09:17 (Hospitalist notified (Dr Godwin))
[2021-06-22] MEDS ORDERED: FUROSEMIDE 40 MG/4 ML INJ IV ONE (06:55)
--- NOTE | 2021-06-22 06:57 | XRay Report ---
CHEST 1 VIEW 06/22/2021 6:26 AM INDICATION / CLINICAL INFORMATION: Shortness of breath. COMPARISON: 01/08/2019. FINDINGS: SUPPORT DEVICES: None. HEART / MEDIASTINUM: Prominent cardiomegaly remains. LUNGS / PLEURA: Bilateral opacity left greater than right. More linear opacity right mid zone. No pne umothorax. ADDITIONAL FINDINGS: No significant additional findings. IMPRESSION: 1. Mild congestive failure. 2. Atelectasis right mid zone. Signer Name: Bryan Schulz MD Signed: 06/22/2021 6:52 AM Workstation Name: [id number]
[2021-06-22 07:32] LABS: Basophils % (Auto) 0.9 % (0.0-1.8); Eosinophils # (Auto) 0.2 K/mm3 (0.0-0.4); Eosinophils % (Auto) 3.3 % (0.0-4.3); Hematocrit 35.6 % (30.3-42.9); Hemoglobin 11.2 gm/dl (10.1-14.3); Lymphocytes # (Auto) 0.6 K/mm3 (1.2-5.4); Lymphocytes % (Auto) 12.4 % (13.4-35.0); Mean Corpuscular HGB Conc 32 % (30-34); Mean Corpuscular Volume 82 fl (79-97); Monocytes # (Auto) 0.6 K/mm3 (0.0-0.8); Monocytes % (Auto) 12.4 % (0.0-7.3); Platelet Count 114 K/mm3 (140-440); Red Blood Count 4.33 M/mm3 (3.65-5.03); Red Cell Distribution Width 16.2 % (13.2-15.2)
[2021-06-22 07:41] LABS: INR 1.14 (0.87-1.13)
[2021-06-22 07:58] LABS: Alanine Aminotransferase 12 units/L (7-56); Albumin 3.3 g/dL (3.9-5); BUN/Creatinine Ratio 15; Blood Urea Nitrogen 16 mg/dL (7-17); Calcium 9.1 mg/dL (8.4-10.2); Creatine Kinase MB 1.8 ng/mL (0.0-4.0); Hemolysis Index 31
[2021-06-22 08:09] LABS: Free T4 (Free Thyroxine) 1.45 ng/dL (0.76-1.46)
[2021-06-22] MEDS ORDERED: ASPIRIN 325 MG TAB PO ONE (08:19)
[2021-06-22] MEDS ORDERED: DEXTROSE 50% IN WATER (25GM) 50 ML SYRINGE IV PRN (09:35)
--- NOTE | 2021-06-22 09:35 | History and Physical Report ---
History of Present Illness Date of examination: 06/22/21 Date of admission: 06/22/21 Chief complaint: SHORTNESS OF BREATH History of present illness: Patient is a 71 year old female with past medical hx of CAD, Asthma, GUIDO, DM GERD, Arthritis, HTN, right lower ext AKA secondary MRSA, who presents with shortness of breath over the past week. She reports that she normally follows up at [facility] and her PCP is Dr Cárdenas, and polysomnography technologist Dr Pierre. She reports increasing orthopena, and althoug she reported to the ED physician chest pressure for about 2-3 days she denied this to me and as result was not able to quantify it. She denies any fever, cough. She reports medication complaince and that she "tries" to avoid salt. Patient feels as though she is swelling in her abdomen and left lower extremity. Patient states she contacted her polysomnography technologist this morning Dr. Pierre who instructed her to come to the emergency department Past History Past Medical History: arthritis, CAD, diabetes, hypertension, hyperlipidemia Past Surgical History: hysterectomy, Other (right aka) Social history: no significant social history, full code Family history: no significant family history Medications and Allergies Allergies Allergy/AdvReac Type Severity Reaction Status Date / Time ROSALVA Inhibitors AdvReac Intermediate Angioedema Verified 06/22/21 09:47 codeine AdvReac Nausea Verified 09/29/17 14:04 Home Medications Medication Instructions Recorded Confirmed Last Taken Type Escitalopram Oxalate [Lexapro] 10 mg PO QDAY 08/01/13 10/05/17 10/04/17 09:00 History Gabapentin [Neurontin] 600 mg PO BID 08/01/13 10/05/17 10/04/17 21:00 History Hydralazine HCl [Apresoline TAB] 25 mg PO BID 08/01/13 10/05/17 10/05/17 06:30 History Isosorbide Mononitrate [Isosorbide 30 mg PO QDAY 08/01/13 10/05/17 10/04/17 21:00 History Mononitrate ER] Zolpidem [Ambien] 5 mg PO QHS PRN 08/01/13 10/05/17 10/04/17 21:00 History carvediloL [Coreg] 6.25 mg PO BID 08/01/13 10/05/17 10/05/17 06:30 History metFORMIN [Glucophage] 500 mg PO BID 08/01/13 10/05/17 10/04/17 21:00 History AtorvaSTATin [Lipitor] 40 mg PO QHS 08/30/17 10/05/17 10/04/17 17:00 History Detemir (Nf) [Levemir (Nf)] 25 units SUB-Q QHS 08/30/17 10/05/17 10/04/17 21:00 History Fluticasone/Vilanterol [Breo 1 inhalation INHALATION BID 08/30/17 10/05/17 10/04/17 21:00 History Ellipta 100-25 Mcg INH] Ipratropium/Albuter (Nf) 2 puff IH QID 08/30/17 10/05/17 10/04/17 21:00 History [Combivent (Nf)] Omeprazole 40 mg PO DAILY 08/30/17 10/05/17 10/04/17 09:00 History Potassium Chloride [K-Dur] 10 meq PO QDAY 08/30/17 10/05/17 10/04/17 09:00 Hi story Review of Systems All systems: negative Constitutional: malaise, lethargy, no weight loss, no weight gain, no fever, no chills, no sweats, no night sweats Cardiovascular: orthopnea, edema, shortness of breath, dyspnea on exertion Respiratory: cough, shortness of breath, dyspnea on exertion, congestion Integumentary: rash, redness, no sores, no wounds Exam - Physical Exam Narrative exam: GENERAL: The patient is well-developed well-nourished female lying in bed still in mild respiratory distress but reports improvement HEENT: Normocephalic. Atraumatic. Extraocular motions are intact. Patient has moist mucous membranes. NECK: Supple. Trachea midline CHEST/LUNGS: Diminished to auscultation with mild expiratory wheeze. HEART/CARDIOVASCULAR: Regular. There is no tachycardia. There is no gallop rub or murmur. ABDOMEN: Abdomen is soft, nontender. Patient has normal bowel sounds. There is no abdominal distention. SKIN: There is no rash. There is 1+ left lower extremity tough pitting edema. There is no diaphoresis. NEURO: The patient is awake, alert, and oriented. The patient is cooperative. The patient has no focal neurologic deficits. The patient has normal speech. MUSCULOSKELETAL: There is a right AKA, TENDER AT STUMP, With no redness - Constitutional Vitals: Temp Pulse Resp BP Pulse Ox 97.5 F L 67 16 144/62 96 06/22/21 06:43 06/22/21 09:15 06/22/21 09:15 06/22/21 09:15 06/22/21 09:15 HEART Score - HEART Score Troponin: Troponin T < 0.010 ng/mL (0.00-0.029) 06/22/21 06:51 Results - Labs CBC & Chem 7: 06/22/21 06:52 06/22/21 06:51 Labs: Laboratory Last Values WBC 5.0 K/mm3 (4.5-11.0) 06/22/21 06:52 RBC 4.33 M/mm3 (3.65-5.03) 06/22/21 06:52 Hgb 11.2 gm/dl (10.1-14.3) 06/22/21 06:52 Hct 35.6 % (30.3-42.9) 06/22/21 06:52 MCV 82 fl (79-97) 06/22/21 06:52 MCH 26 pg (28-32) L 06/22/21 06:52 MCHC 32 % (30-34) 06/22/21 06:52 RDW 16.2 % (13.2-15.2) H 06/22/21 06:52 Plt Count 114 K/mm3 (140-440) L 06/22/21 06:52 Lymph % (Auto) 12.4 % (13.4-35.0) L 06/22/21 06:52 [place] % (Auto) 12.4 % (0.0-7.3) H 06/22/21 06:52 Eos % (Auto) 3.3 % (0.0-4.3) 06/22/21 06:52 Baso % (Auto) 0.9 % (0.0-1.8) 06/22/21 06:52 Lymph # (Auto) 0.6 K/mm3 (1.2-5.4) L 06/22/21 06:52 [place] # (Auto) 0.6 K/mm3 (0.0-0.8) 06/22/21 06:52 Eos # (Auto) 0.2 K/mm3 (0.0-0.4) 06/22/21 06:52 Baso # (Auto) 0.0 K/mm3 (0.0-0.1) 06/22/21 06:52 Seg Neutrophils % 71.0 % (40.0-70.0) H 06/22/21 06:52 Seg Neutrophils # 3.5 K/mm3 (1.8-7.7) 06/22/21 06:52 PT 15.9 Sec. (12.2-14.9) H 06/22/21 06:51 INR 1.14 (0.87-1.13) H 06/22/21 06:51 VBG pH 7.337 (7.320-7.420) 06/22/21 06:51 Sodium 142 mmol/L (137-145) 06/22/21 06:51 Potassium 4.6 mmol/L (3.6-5.0) 06/22/21 06:51 Chloride 106.4 mmol/L (98-107) 06/22/21 06:51 Carbon Dioxide 24 mmol/L (22-30) 06/22/21 06:51 Anion Gap 16 mmol/L 06/22/21 06:51 BUN 16 mg/dL (7-17) 06/22/21 06:51 Creatinine 1.1 mg/dL (0.6-1.2) 06/22/21 06:51 Estimated GFR 59 ml/min 06/22/21 06:51 BUN/Creatinine Ratio 15 % 06/22/21 06:51 Glucose 138 mg/dL (65-100) H 06/22/21 06:51 Calcium 9.1 mg/dL (8.4-10.2) 06/22/21 06:51 Total Bilirubin 0.70 mg/dL (0.1-1.2) 06/22/21 06:51 AST 19 units/L (5-40) 06/22/21 06:51 ALT 12 units/L (7-56) 06/22/21 06:51 Alkaline Phosphatase 108 units/L (35-129) 06/22/21 06:51 Total Creatine Kinase 53 units/L (30-135) 06/22/21 06:51 CK-MB (CK-2) 1.8 ng/mL (0.0-4.0) 06/22/21 06:51 CK-MB (CK-2) Rel Index 3.3 (0-4) 06/22/21 06:51 Troponin T < 0.010 ng/mL (0.00-0.029) 06/22/21 06:51 NT-Pro-B Natriuret Pep 9614 pg/mL (0-900) H 06/22/21 06:52 Total Protein 7.7 g/dL (6.3-8.2) 06/22/21 06:51 Albumin 3.3 g/dL (3.9-5) L 06/22/21 06:51 Albumin/Globulin Ratio 0.8 % 06/22/21 06:51 TSH 2.970 mlU/mL (0.270-4.200) 06/22/21 06:51 Free T4 1.45 ng/dL (0.76-1.46) 06/22/21 06:51 Assessment and Plan Assessment and plan: Patient is a 71 year old female with past medical hx of CAD, Asthma, GUIDO, DM GERD, Arthritis, HTN, right lower ext AKA secondary MRSA, who presents with shortness of breath over the past week. She reports that she normally follows up at [facility] and her PCP is Dr Cárdenas, and polysomnography technologist Dr Pierre. She reports increasing orthopena, and althoug she reported to the ED physician chest pressure for about 2-3 days she denied this to me and as result was not able to quantify it. She denies any fever, cough. She reports medication complaince and that she "tries" to avoid salt. Patient feels as though she is swelling in her abdomen and left lower extremity. Patient states she contacted her polysomnography technologist this morning Dr. Pierre who instructed her to come to the emergency department - EKG Data ARRHYTHMIA Chest [id number], CHF. 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 Strict I's and O's and daily weights We will defer full dose anticoagulation until cardiology evaluation Resume appropriate home medication Obtain echocardiogram We will obtain records from [facility] as patient was recently in the last month. Antibiotics for his thumb cellulitis with x-ray of the lower extremity We will give 24 hours off steroid therapy while monitoring blood sugar closely. Patient did have a mild wheeze on exam. Pulmonary consultation PT OT evaluation and treat Monitor thrombocytopenia closely. Regardless of start patient on DVT prophylaxis. Extensive counseling provided to the patient she verbalized understanding Advance Directives: Yes Plan of care discussed with patient/family: Yes
[2021-06-22] MEDS ORDERED: IPRATROPIUM/ALBUTEROL SULFATE 3 ML AMPUL.NEB IH SCH (09:45)
[2021-06-22] MEDS ORDERED: methylPREDNISolone Sod Succinate 125 MG/2 ML INJ IV ONE (09:45)
[2021-06-22] MEDS ORDERED: NON-FORMULARY EACH (Escitalopram Oxalate [Lexapro] 5 MG Tablet) PO SCH (10:00)
--- NOTE | 2021-06-22 10:36 | XRay Report ---
RIGHT FEMUR 2 VIEWS INDICATION: RIGHT STUMP PAIN. COMPARISON: CT abdomen pelvis 05/26/2021 IMPRESSION: The right femoral head and neck are absent with superolateral displacement of the remain ing right femur. [id number] amputation changes are appreciated. The remaining right femoral appe ars osteopenic but no obvious acute osseous abnormality is appreciated. If further evaluation is need ed MRI with and without contrast should provide the most information. Signer Name: Palmer Bright Jr, MD Signed: 06/22/2021 10:31 AM Workstation Name: [id number]
[2021-06-22] MEDS ORDERED: DEXTROSE 10% *Hypoglycemia IV PRN (10:37)
[2021-06-22] MEDS ORDERED: NALOXONE 0.4 MG/1 ML INJ IV PRN (11:00)
[2021-06-22] MEDS ORDERED: MORPHINE 2 MG/1 ML INJ IV PRN (11:00)
[2021-06-22] MEDS ORDERED: NITROGLYCERIN 0.4 MG TAB SUBL SL PRN (11:00)
[2021-06-22] MEDS ORDERED: ALBUTEROL 2.5 MG/3 ML NEBU IH PRN (11:00)
[2021-06-22] MEDS ORDERED: METOCLOPRAMIDE 10 MG/2 ML INJ IV PRN (11:00)
[2021-06-22] MEDS ORDERED: ONDANSETRON 4 MG/2 ML INJ IV PRN (11:00)
[2021-06-22] MEDS: INSULIN LISPRO 100 UNIT/ML SUB-Q SCH ×3 (11:32→22:15)
[2021-06-22] MEDS: carvediloL 12.5 MG TAB PO SCH ×3 (11:33→22:20)
[2021-06-22] MEDS: GABAPENTIN 300 MG CAP PO SCH ×2 (11:34→21:56)
[2021-06-22] MEDS: metOLazone 2.5 MG TAB PO SCH (11:36)
--- NOTE | 2021-06-22 12:31 | Consultation ---
History of Present Illness Consult date: 06/22/21 Requesting physician: ALEXI SOW Consult reason: congestive heart failure History of present illness: Patient is 71-year-old female with a past medical history of coronary artery disease, cardiomyopathy EF 55 to 60%, pulmonary hypertension, hypertension, asthma, right AKA presented to the ED with a complaint of progressively worsening shortness of breath x1 week. Patient states she has been having ort hopnea, PND, lower extremity edema, and worsening shortness of breath. She called our office and was instructed to come to the ED by Dr. Pierre. She reports that she is compliant with her medications however she does state that she is not compliant with her diet. At time of interview patient denies chest pain, nausea, vomiting, diaphoresis. Cardiology is consulted for CHF Past History Past Medical History: arthritis, CAD, diabetes, hypertension, hyperlipidemia Past Surgical History: hysterectomy, Other (right aka) Social history: no significant social history, full code Family history: no significant family history Medications and Allergies Allergies Allergy/AdvReac Type Severity Reaction Status Date / Time ROSALVA Inhibitors AdvReac Intermediate Angioedema Verified 06/22/21 09:47 codeine AdvReac Nausea Verified 09/29/17 14:04 Home Medications Medication Instructions Recorded Confirmed Last Taken Type Escitalopram Oxalate [Lexapro] 10 mg PO QDAY 08/01/13 10/05/17 10/04/17 09:00 History Gabapentin [Neurontin] 600 mg PO BID 08/01/13 10/05/17 10/04/17 21:00 History Hydralazine HCl [Apresoline TAB] 25 mg PO BID 08/01/13 10/05/17 10/05/17 06:30 History Isosorbide Mononitrate [Isosorbide 30 mg PO QDAY 08/01/13 10/05/17 10/04/17 21:00 History Mononitrate ER] Zolpidem [Ambien] 5 mg PO QHS PRN 08/01/13 10/05/17 10/04/17 21:00 History carvediloL [Coreg] 6.25 mg PO BID 08/01/13 10/05/17 10/05/17 06:30 History metFORMIN [Glucophage] 500 mg PO BID 08/01/13 10/05/17 10/04/17 21:00 History AtorvaSTATin [Lipitor] 40 mg PO QHS 05/23/18 06/28/18 06/27/18 17:00 History Detemir (Nf) [Levemir (Nf)] 25 units SUB-Q QHS 08/30/17 10/05/17 10/04/17 21:00 History Fluticasone/Vilanterol [Breo 1 inhalation INHALATION BID 08/30/17 10/05/17 10/04/17 21:00 History Ellipta 100-25 Mcg INH] Ipratropium/Albuter (Nf) 2 puff IH QID 08/30/17 10/05/17 10/04/17 21:00 History [Combivent (Nf)] Omeprazole 40 mg PO DAILY 08/30/17 10/05/17 10/04/17 09:00 History Potassium Chloride [K-Dur] 10 meq PO QDAY 08/30/17 10/05/17 10/04/17 09:00 History Active Meds: Active Medications Acetaminophen (Acetaminophen 325 Mg Tab) 650 mg PO Q4H PRN PRN Reason: Pain MILD(1-3)/Fever >100.5/GONZALEZ Albuterol (Albuterol 2.5 Mg/3 Ml Nebu) 2.5 mg IH Q3HRT PRN PRN Reason: Shortness Of Breath Arformoterol Tartrate (Arformoterol 15 Mcg/2 Ml Nebu) 15 mcg IH Q12HRT [facility] Aspirin (Aspirin 81 Mg Tab Chew) 81 mg PO QDAY [facility] Atorvastatin Calcium (Atorvastatin 40 Mg Tab) 40 mg PO QHS [facility] Budesonide (Budesonide 0.5 Mg/2 Ml Nebu) 0.5 mg IH Q12HRT [facility] Carvedilol (Carvedilol 12.5 Mg Tab) 12.5 mg PO BID [facility] Last Admin: 06/22/21 11:33 Dose: 12.5 mg Cephalexin (Cephalexin 500 Mg Cap) 500 mg PO Q12HR [facility]; Protocol Dextrose (Dextrose 10% *Hypoglycemia) 0 ml IV PRN PRN PRN Reason: Hypoglycemia Docusate Sodium (Docusate Sodium 100 Mg Cap) 100 mg PO BID [facility] Escitalopram Oxalate (Escitalopram 10 Mg Tab) 10 mg PO DAILY [facility] Famotidine (Famotidine 20 Mg/2 Ml Inj) 20 mg IV BID [facility] Furosemide (Furosemide 40 Mg/4 Ml Inj) 40 mg IV BID@0600,1800 [facility] Gabapentin (Gabapentin 300 Mg Cap) 600 mg PO BID [facility] Last Admin: 06/22/21 11:34 Dose: 600 mg Heparin Sodium (Porcine) (Heparin 5,000 Unit/1 Ml Vial) 5,000 unit SUB-Q Q8HR [facility] Hydralazine HCl (Hydralazine 25 Mg Tab) 50 mg PO Q8HR [facility] Insulin Glargine (Insulin Glargine 100 Units/Ml) 30 units SUB-Q QHS [facility] Insulin Human Lispro (Insulin Lispro 100 Unit/Ml) 0 unit SUB-Q ACHS [facility]; Prot ocol Isosorbide Mononitrate (Isosorbide Mononitrate Er 30 Mg Tab) 30 mg PO QDAY [facility] Last Admin: 06/22/21 11:35 Dose: 30 mg Methylprednisolone Sodium Succinate (Methylprednisolone Sod Succinate 40 Mg/1 Ml Inj) 40 mg IV Q8HR [facility] Metoclopramide HCl (Metoclopramide 10 Mg/2 Ml Inj) 10 mg IV Q6H PRN PRN Reason: Nausea And Vomiting Metolazone (Metolazone 2.5 Mg Tab) 2.5 mg PO QDAY [facility] Last Admin: 06/22/21 11:36 Dose: 2.5 mg Morphine Sulfate (Morphine 2 Mg/1 Ml Inj) 2 mg IV Q4H PRN PRN Reason: Pain, Moderate (4-6) Naloxone HCl (Naloxone 0.4 Mg/1 Ml Inj) 0.1 mg IV Q2MIN PRN PRN Reason: Res Rate </= 8 or 02 SAT < 92% Nitroglycerin (Nitroglycerin 0.4 Mg Tab Subl) 0.4 mg SL .Q5MIN PRN PRN Reason: Chest Pain Ondansetron HCl (Ondansetron 4 Mg/2 Ml Inj) 4 mg IV Q4H PRN PRN Reason: Nausea And Vomiting Potassium Chloride (Potassium Chloride Er 10 Meq Tab) 10 meq PO QDAY [facility] Senna (Sennosides 8.6 Mg Tab) 8.6 mg PO Q12HR [facility] Sodium Chloride (Sodium Chloride 0.9% 10 Ml Flush Syringe) 10 ml IV BID [facility] Last Admin: 06/22/21 11:32 Dose: 10 ml Sodium Chloride (Sodium Chloride 0.9% 10 Ml Flush Syringe) 10 ml IV PRN PRN PRN Reason: LINE FLUSH Review of Systems Constitutional: no weight loss, no weight gain, no fever, no chills Ears, nose, mouth and throat: no nasal discharge, no sinus pressure, no sinus pain Cardiovascular: orthopnea, edema, shortness of breath, dyspnea on exertion, leg edema, no chest pain, no palpitations Respiratory: shortness of breath, dyspnea on exertion Gastrointestinal: no abdominal pain, no nausea, no vomiting Musculoskeletal: no neck stiffness, no neck pain, no shooting arm pain Integumentary: no rash, no pruritis, no redness Psychiatric: no anxiety, no memory loss Endocrine: no cold intolerance, no heat intolerance Hematologic/Lymphatic: no easy bruising, no easy bleeding Physical Examination Vital Signs Temp Pulse Resp BP Pulse Ox 97.5 F L 76 16 138/64 98 06/22/21 06:43 06/22/21 06:43 06/22/21 06:43 06/22/21 06:43 06/22/21 06:43 General appearance: no acute distress HEENT: Positive: Normocephaly Neck: Positive: trachea midline Cardiac: Positive: Reg Rate and Rhythm Lungs: Positive: Decreased Breath Sounds, Wheezes Neuro: Positive: Grossly Intact Abdomen: Positive: Soft Skin: Negative: Rash, Suspicious Lesions, Ulceration Extremities: Present: upper extr. pulses, edema Results 06/22/21 06:52 06/22/21 06:51 Cardiac Enzymes 06/22/21 Range/Units 06:51 AST 19 (5-40) units/L CK-MB (CK-2) 1.8 (0.0-4.0) ng/mL Coagulation 06/22/21 Range/Units 06:51 PT 15.9 H (12.2-14.9) Sec. INR 1.14 H (0.87-1.13) CBC 06/22/21 Range/Units 06:52 WBC 5.0 (4.5-11.0) K/mm3 RBC 4.33 (3.65-5.03) M/mm3 Hgb 11.2 (10.1-14.3) gm/dl Hct 35.6 (30.3-42.9) % Plt Count 114 L (140-440) K/mm3 Lymph # (Auto) 0.6 L (1.2-5.4) K/mm3 [place] # (Auto) 0.6 (0.0-0.8) K/mm3 Eos # (Auto) 0.2 (0.0-0.4) K/mm3 Baso # (Auto) 0.0 (0.0-0.1) K/mm3 Comprehensive Metabolic Panel 06/22/21 Range/Units 06:51 Sodium 142 (137-145) mmol/L Potassium 4.6 (3.6-5.0) mmol/L Chloride 106.4 (98-107) mmol/L Carbon Dioxide 24 (22-30) mmol/L BUN 16 (7-17) mg/dL Creatinine 1.1 (0.6-1.2) mg/dL Glucose 138 H (65-100) mg/dL Calcium 9.1 (8.4-10.2) mg/dL AST 19 (5-40) units/L ALT 12 (7-56) units/L Alkaline Phosphatase 108 (35-129) units/L Total Protein 7.7 (6.3-8.2) g/dL Albumin 3.3 L (3.9-5) g/dL - Imaging and Cardiology Echo: report reviewed EKG interpretations - Telemetry EKG Rhythm: Sinus Rhythm - EKG Sinus rhythms and dysrhythmias: sinus rhythm Assessment and Plan Patient is 71-year-old female with a past medical history of coronary artery disease, cardiomyopathy EF 55 to 60%, pulmonary hypertension, hypertension, asthma, right AKA presented to the ED with a complaint of progressively worsening shortness of breath x1 week Acute on chronic diastolic heart failure Severe pulmonary hypertension Asthma- Pulmonology following Coronary artery disease Cardiomyopathy Hypertension Chronic lymphedema PET Perfusion Study (Rest/Stress) 06/14/2021- Negative Lexiscan . Normal rest and stress myocardial PET perfusion scan. No significant ischemia. No wall motion abnormality. Gated SPECT at rest 50%, stress 57%. Coronary flow reserve globally at 1.67 with RV dilatation noted. Echocardiogram 06/14/2021- Contrast was utilized. There is normal LV systolic function. LV wall thickness is mild to moderately increased. The estimated left ventricle ejection fraction is 55-60%. There is increased left atrial pressure and Grade II diastolic dysfunction. There is normal right ventricular size, wall dimension, and systolic function. The LA volume is moderately increased. There is no aortic valve stenosis or regurgitation. There is no mitral regurgitation. There is mild tricuspid regurgitation. There is severe pulmonary hypertension. The estimated RV systolic pressure is >60. There is no pulmonic regurgitation. There is a trace posterior pericardial effusion. No left ventricular thrombus noted with LV contrast images. Outpatient medications: Lasix 40 mg p.o. twice daily, hydralazine 50 mg p.o. 3 times daily, metolazone 2.5 mg p.o. daily, aspirin, atorvastatin, Coreg 12.5 mg p.o. twice daily, Imdur 30 mg p.o. daily, Plan: EKG shows sinus rhythm 66. No acute ischemic changes. Troponin negative x1. Patient denies any complaints of chest pain and has had recent negative ischemic eval BNP noted to be elevated, patient reports orthopnea PND, and shortness of breath. Agree with diuresis with Lasix 40 mg IV twice daily and addition of metolazone Strict I&O's, close monitoring of renal indicis, and repeat BMP Resume outpatient medications Patient has a history of chronic lymphedema and currently sees vascular as an outpatient. Primary team may wish to consider vascular consult for lymphedema Patient seen in conjunction with Dr. Ann who agrees with this plan of care - Patient Problems (1) Acute on chronic diastolic heart failure Current Visit: Yes Status: Acute (2) Severe pulmonary hypertension Current Visit: Yes Status: Acute (3) Asthma Current Visit: No Status: Chronic (4) Essential hypertension Current Visit: No Status: Chronic (5) HTN (hypertension) Current Visit: No Status: Chronic (6) History of PTCA Current Visit: No Status: Chronic (7) GUIDO (obstructive sleep apnea) Current Visit: No Status: Chronic (8) PVD (peripheral vascular disease) Current Visit: No Status: Chronic
[2021-06-22] MEDS ORDERED: NON-FORMULARY EACH (Hydralazine Hcl [Apresoline Tab] 50 MG Tablet) PO SCH (14:00)
[2021-06-22] MEDS: POTASSIUM CHLORIDE ER 10 MEQ TAB PO SCH (14:27)
[2021-06-22] MEDS: ESCITALOPRAM 10 MG TAB PO SCH (14:27)
[2021-06-22] MEDS: HEPARIN 5,000 UNIT/1 ML VIAL SUB-Q SCH ×2 (14:37→22:17)
[2021-06-22] MEDS: hydrALAZINE 25 MG TAB PO SCH ×2 (15:28→22:20)
[2021-06-22] MEDS: methylPREDNISolone Sod Succinate 40 MG/1 ML INJ IV SCH ×2 (15:37→22:21)
[2021-06-22] MEDS: BUDESONIDE 0.5 MG/2 ML NEBU IH SCH ×2 (16:24→20:27)
[2021-06-22] MEDS: ARFORMOTEROL 15 MCG/2 ML NEBU IH SCH ×2 (16:24→20:26)
[2021-06-22] MEDS: FUROSEMIDE 40 MG/4 ML INJ IV SCH (17:28)
[2021-06-22] MEDS: cephALEXin 500 MG CAP PO SCH ×2 (17:29→21:59)
[2021-06-22] MEDS: ACETAMINOPHEN 325 MG TAB PO PRN (17:29)
[2021-06-22] MEDS: DOCUSATE SODIUM 100 MG CAP PO SCH ×2 (17:33→21:58)
[2021-06-22] MEDS: FAMOTIDINE 20 MG/2 ML INJ IV SCH ×2 (17:33→22:17)
[2021-06-22] MEDS: SENNOSIDES 8.6 MG TAB PO SCH ×2 (17:34→22:17)
[2021-06-22] MEDS ORDERED: BUDESONIDE 0.5 MG/2 ML NEBU IH SCH (20:00)
[2021-06-22] MEDS ORDERED: INSULIN GLARGINE 100 UNITS/ML SUB-Q SCH (22:00)
[2021-06-22] MEDS: INSULIN GLARGINE 100 UNITS/ML SUB-Q SCH (22:15)
[2021-06-23 05:37] LABS: Basophils % (Auto) 0.1 % (0.0-1.8); Hematocrit 33.3 % (30.3-42.9); Hemoglobin 10.7 gm/dl (10.1-14.3); Lymphocytes # (Auto) 0.4 K/mm3 (1.2-5.4); Lymphocytes % (Auto) 8.1 % (13.4-35.0); Mean Corpuscular HGB Conc 32 % (30-34); Mean Corpuscular Volume 82 fl (79-97); Monocytes # (Auto) 0.1 K/mm3 (0.0-0.8); Monocytes % (Auto) 2.7 % (0.0-7.3); Platelet Count 146 K/mm3 (140-440); Red Blood Count 4.05 M/mm3 (3.65-5.03); Red Cell Distribution Width 16.2 % (13.2-15.2)
[2021-06-23] MEDS: FUROSEMIDE 40 MG/4 ML INJ IV SCH ×2 (06:04→17:22)
[2021-06-23] MEDS: hydrALAZINE 25 MG TAB PO SCH ×3 (06:05→22:12)
[2021-06-23] MEDS: HEPARIN 5,000 UNIT/1 ML VIAL SUB-Q SCH ×5 (06:06→22:18)
[2021-06-23] MEDS: methylPREDNISolone Sod Succinate 40 MG/1 ML INJ IV SCH ×4 (06:13→22:16)
[2021-06-23] MEDS: FAMOTIDINE 20 MG TAB PO SCH ×3 (08:17→22:13)
[2021-06-23] MEDS: INSULIN LISPRO 100 UNIT/ML SUB-Q SCH ×4 (08:56→22:17)
[2021-06-23] MEDS: ACETAMINOPHEN 325 MG TAB PO PRN (09:05)
[2021-06-23] MEDS: carvediloL 12.5 MG TAB PO SCH ×2 (09:06→22:13)
[2021-06-23] MEDS: metOLazone 2.5 MG TAB PO SCH (09:07)
[2021-06-23] MEDS: DOCUSATE SODIUM 100 MG CAP PO SCH ×2 (09:07→22:13)
[2021-06-23] MEDS: GABAPENTIN 300 MG CAP PO SCH ×2 (09:07→22:11)
[2021-06-23] MEDS: ESCITALOPRAM 10 MG TAB PO SCH (09:07)
[2021-06-23] MEDS: ASPIRIN 81 MG TAB CHEW PO SCH (09:07)
[2021-06-23] MEDS: SENNOSIDES 8.6 MG TAB PO SCH ×2 (09:07→22:14)
[2021-06-23] MEDS: cephALEXin 500 MG CAP PO SCH ×2 (09:08→22:14)
[2021-06-23] MEDS: POTASSIUM CHLORIDE ER 10 MEQ TAB PO SCH (09:14)
[2021-06-23] MEDS: ARFORMOTEROL 15 MCG/2 ML NEBU IH SCH ×2 (09:29→19:59)
[2021-06-23] MEDS: BUDESONIDE 0.5 MG/2 ML NEBU IH SCH ×2 (09:29→19:59)
[2021-06-23 11:11] LABS: ABG Base Excess -0.2 mmol/L (-2.0-3.0); ABG HCO3 26.4 mmol/L (20.0-26.0); ABG Methemoglobin 0.5 % (0.0-1.5); ABG Oxygen Saturation 90.2 % (95.0-99.0); ABG PCO2 51.5 mm Hg; ABG PH 7.327 pH Units (7.350-7.450); ABG PO2 61.1 mm Hg (80.0-90.0)
--- NOTE | 2021-06-23 12:02 | Progress Note ---
Assessment and Plan Patient is 71-year-old female with a past medical history of coronary artery disease, cardiomyopathy EF 55 to 60%, pulmonary hypertension, hypertension, asthma, right AKA presented to the ED with a complaint of progressively worsening shortness of breath x1 week Acute on chronic diastolic heart failure Severe pulmonary hypertension Asthma- Pulmonology following Coronary artery disease Cardiomyopathy Hypertension Chronic lymphedema PET Perfusion Study (Rest/Stress) 06/14/2021- Negative Lexiscan . Normal rest and stress myocardial PET perfusion scan. No significant ischemia. No wall motion abnormality. Gated SPECT at rest 50%, stress 57%. Coronary flow reserve globally at 1.67 with RV dilatation noted. Echocardiogram 06/14/2021- Contrast was utilized. There is normal LV systolic function. LV wall thickness is mild to moderately increased. The estimated left ventricle ejection fraction is 55-60%. There is increased left atrial pressure and Grade II diastolic dysfunction. There is normal right ventricular size, wall dimension, and systolic function. The LA volume is moderately increased. There is no aortic valve stenosis or regurgitation. There is no mitral regurgitation. There is mild tricuspid regurgitation. There is severe pulmonary hypertension. The estimated RV systolic pressure is >60. There is no pulmonic regurgitation. There is a trace posterior pericardial effusion. No left ventricular thrombus noted with LV contrast images. Outpatient medications: Lasix 40 mg p.o. twice daily, hydralazine 50 mg p.o. 3 times daily, metolazone 2.5 mg p.o. daily, aspirin, atorvastatin, Coreg 12.5 mg p.o. twice daily, Imdur 30 mg p.o. daily, Plan: Patient reports having good urine output and improvement in respiratory status. Creatinine noted to have slight elevation however will continue diuresis with Lasix 40 mg IV twice daily and metolazone if okay with pulmonology With strict I&O's, close monitoring of renal indicis, and repeat BMP. If creatinine continues to rise we will stop diuresis Continue outpatient medications Patient has a history of chronic lymphedema and currently sees vascular as an outpatient. Primary team may wish to consider vascular consult for lymphedema Patient seen in conjunction with Dr. Ann who agrees with this plan of care - Patient Problems (1) Acute on chronic diastolic heart failure Current Visit: Yes Status: Acute (2) Severe pulmonary hypertension Current Visit: Yes Status: Acute (3) Asthma Current Visit: No Status: Chronic (4) Essential hypertension Current Visit: No Status: Chronic (5) HTN (hypertension) Current Visit: No Status: Chronic (6) History of PTCA Current Visit: No Status: Chronic (7) GUIDO (obstructive sleep apnea) Current Visit: No Status: Chronic (8) PVD (peripheral vascular disease) Current Visit: No Status: Chronic Subjective Date of service: 06/23/21 Principal diagnosis: Acute on chronic diastolic heart failure, asthma exacerbation Interval history: Patient sitting in bed in no acute distress. Patient reports feeling improvement in her respiratory status Sinus 60 to 70s on monitor with PACs Objective Vital Signs Temp Pulse Pulse Resp Resp BP Pulse Ox 06/23/21 09:40 18 95 06/23/21 09:30 94 06/23/21 09:06 75 135/69 06/23/21 09:05 75 20 135/69 06/23/21 08:00 69 18 06/23/21 07:45 98.7 F 75 18 135/69 95 06/23/21 04:19 97.4 F L 53 L 16 112/71 96 06/23/21 03:36 67 16 100 06/23/21 00:16 60 17 97 06/22/21 22:21 99.3 F 68 16 130/58 97 06/22/21 20:43 73 18 06/22/21 20:27 97 06/22/21 19:45 98.8 F 71 16 115/50 97 06/22/21 16:56 96 06/22/21 16:30 72 20 06/22/21 16:13 98.5 F 69 21 148/60 96 06/22/21 15:21 46 L 9 L 119/70 100 06/22/21 15:11 44 L 13 119/70 100 06/22/21 15:01 41 L 14 119/70 100 06/22/21 14:51 44 L 14 114/60 100 06/22/21 14:41 47 L 14 114/60 100 06/22/21 14:31 45 L 15 114/60 100 06/22/21 14:21 46 L 12 104/72 100 06/22/21 14:11 43 L 15 104/72 100 06/22/21 14:01 41 L 13 104/72 100 06/22/21 13:52 100 06/22/21 12:36 98.9 F 62 18 121/55 98 06/22/21 12:01 61 16 101/74 96 - Physical Examination HEENT: Positive: Normocephaly Neck: Positive: trachea midline Cardiac: Positive: Reg Rate and Rhythm Lungs: Positive: Decreased Breath Sounds Neuro: Positive: Grossly Intact Abdomen: Positive: Soft Skin: Negative: Rash, Suspicious Lesions, Ulceration Extremities: Present: upper extr. pulses, edema - Labs and Meds CBC 06/23/21 Range/Units 04:43 WBC 5.1 (4.5-11.0) K/mm3 RBC 4.05 (3.65-5.03) M/mm3 Hgb 10.7 (10.1-14.3) gm/dl Hct 33.3 (30.3-42.9) % Plt Count 146 (140-440) K/mm3 Lymph # (Auto) 0.4 L (1.2-5.4) K/mm3 [place] # (Auto) 0.1 (0.0-0.8) K/mm3 Eos # (Auto) 0.0 (0.0-0.4) K/mm3 Baso # (Auto) 0.0 (0.0-0.1) K/mm3 Comprehensive Metabolic Panel 06/23/21 Range/Units 04:43 Sodium 140 (137-145) mmol/L Potassium 4.2 (3.6-5.0) mmol/L Chloride 104.9 (98-107) mmol/L Carbon Dioxide 24 (22-30) mmol/L BUN 22 H (7-17) mg/dL Creatinine 1.4 H (0.6-1.2) mg/dL Glucose 295 H (65-100) mg/dL Calcium 8.0 L (8.4-10.2) mg/dL - Imaging and Cardiology Echo: report reviewed - Telemetry EKG Rhythm: Sinus Rhythm - EKG Sinus rhythms and dysrhythmias: sinus rhythm Supraventricular dysrhythmia: atrial premature complexe
--- NOTE | 2021-06-23 12:27 | Consultation ---
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 Patient found to have a BNP of >9k and CXR with clear lung goode but very very enlarged cardiac silhouette. Pulmonary consulted as she has asthma and some concern for GUIDO. Past History Past Medical History: arthritis, CAD, diabetes, hypertension, hyperlipidemia Past Surgical History: hysterectomy, Other (right aka) Social history: no significant social history, full code Family history: no significant family history Medications and Allergies Allergies Allergy/AdvReac Type Severity Reaction Status Date / Time ROSALVA Inhibitors AdvReac Intermediate Angioedema Verified 06/23/21 08:04 codeine AdvReac Nausea Verified 06/23/21 08:04 Home Medications Medication Instructions Recorded Confirmed Last Taken Type Escitalopram Oxalate [Lexapro] 10 mg PO QDAY 08/01/13 06/23/21 10/04/17 09:00 History Gabapentin [Neurontin] 600 mg PO BID 08/01/13 06/23/21 10/04/17 21:00 History Isosorbide Mononitrate [Isosorbide 30 mg PO QDAY 08/01/13 06/23/21 10/04/17 21:00 History Mononitrate ER] Zolpidem [Ambien] 5 mg PO QHS PRN 08/01/13 06/23/21 10/04/17 21:00 History metFORMIN [Glucophage] 500 mg PO BID 08/01/13 06/23/21 10/04/17 21:00 History AtorvaSTATin [Lipitor] 40 mg PO QHS 08/30/17 06/23/21 10/04/17 17:00 History Omeprazole 40 mg PO DAILY 08/30/17 06/23/21 10/04/17 09:00 History Alirocumab [Praluent Pen] 1 syr SQ Q2W 06/23/21 06/23/21 Unknown History Aspirin EC [Halfprin EC] 81 mg PO QDAY 06/23/21 06/23/21 Unknown History Fluticasone/Umeclidin/Vilanter 1 puff INHALATION DAILY 06/23/21 06/23/21 Unknown History [Trelegy Ellipta 100-62.5-25(Nf)] Furosemide [Lasix] 40 mg PO BID 06/23/21 06/23/21 Unknown History Hydralazine HCl 50 mg PO TID 06/23/21 06/23/21 Unknown History Insulin Aspart [Novolog Flexpen] 0 unit SQ AC 06/23/21 06/23/21 Unknown History Insulin Detemir [Levemir Flextouch] 25 unit SQ QHS 06/23/21 06/23/21 Unknown History Ipratropium/Albuterol Sulfate 1 spray IH QDAY 06/23/21 06/23/21 Unknown History [Combivent Respimat] Metoclopramide [Reglan] 10 mg PO BID 06/23/21 06/23/21 Unknown History Active Meds: Active Medications Acetaminophen (Acetaminophen 325 Mg Tab) 650 mg PO Q4H PRN PRN Reason: Pain MILD(1-3)/Fever >100.5/GONZALEZ Last Admin: 06/23/21 09:05 Dose: 650 mg Albuterol (Albuterol 2.5 Mg/3 Ml Nebu) 2.5 mg IH Q3HRT PRN PRN Reason: Shortness Of Breath Last Admin: 06/22/21 16:30 Dose: 2.5 mg Arformoterol Tartrate (Arformoterol 15 Mcg/2 Ml Nebu) 15 mcg IH Q12HRT [facility] Last Admin: 06/23/21 09:29 Dose: 15 mcg Aspirin (Aspirin 81 Mg Tab Chew) 81 mg PO QDAY [facility] Last Admin: 06/23/21 09:07 Dose: 81 mg Atorvastatin Calcium (Atorvastatin 40 Mg Tab) 40 mg PO QHS [facility] Last Admin: 06/22/21 21:58 Dose: 40 mg Budesonide (Budesonide 0.5 Mg/2 Ml Nebu) 0.5 mg IH Q12HRT [facility] Last Admin: 06/23/21 09:29 Dose: 0.5 mg Carvedilol (Carvedilol 12.5 Mg Tab) 12.5 mg PO BID [facility] Last Admin: 06/23/21 09:06 Dose: 12.5 mg Cephalexin (Cephalexin 500 Mg Cap) 500 mg PO Q12HR [facility]; Protocol Stop: 06/26/21 22:01 Last Admin: 06/23/21 09:08 Dose: 500 mg Dextrose (Dextrose 10% *Hypoglycemia) 0 ml IV PRN PRN PRN Reason: Hypoglycemia Docusate Sodium (Docusate Sodium 100 Mg Cap) 100 mg PO BID [facility] Last Admin: 06/23/21 09:07 Dose: 100 mg Escitalopram Oxalate (Escitalopram 10 Mg Tab) 10 mg PO DAILY [facility] Last Admin: 06/23/21 09:07 Dose: 10 mg Famotidine (Famotidine 20 Mg Tab) 20 mg PO BID [facility] Last Admin: 06/23/21 09:07 Dose: 20 mg Furosemide (Furosemide 40 Mg/4 Ml Inj) 40 mg IV BID@0600,1800 [facility] Last Admin: 06/23/21 06:04 Dose: 40 mg Gabapentin (Gabapentin 300 Mg Cap) 600 mg PO BID [facility] Last Admin: 06/23/21 09:07 Dose: 600 mg Heparin Sodium (Porcine) (Heparin 5,000 Unit/1 Ml Vial) 5,000 unit SUB-Q Q8HR [facility] Last Admin: 06/23/21 08:05 Dose: 5,000 unit Hydralazine HCl (Hydralazine 25 Mg Tab) 50 mg PO Q8HR [facility] Last Admin: 06/23/21 06:05 Dose: Not Given Insulin Glargine (Insulin Glargine 100 Units/Ml) 30 units SUB-Q QHS [facility] Last Admin: 06/22/21 22:15 Dose: 30 units Insulin Human Lispro (Insulin Lispro 100 Unit/Ml) 0 unit SUB-Q [facility]; Protocol Last Admin: 06/23/21 08:56 Dose: 3 unit Isosorbide Mononitrate (Isosorbide Mononitrate Er 30 Mg Tab) 30 mg PO QDAY [facility] Last Admin: 06/23/21 09:05 Dose: 30 mg Methylprednisolone Sodium Succinate (Methylprednisolone Sod Succinate 40 Mg/1 Ml Inj) 40 mg IV Q8HR [facility] Last Admin: 06/23/21 08:09 Dose: 40 mg Metoclopramide HCl (Metoclopramide 10 Mg/2 Ml Inj) 10 mg IV Q6H PRN PRN Reason: Nausea And Vomiting Metolazone (Metolazone 2.5 Mg Tab) 2.5 mg PO QDAY [facility] Last Admin: 06/23/21 09:07 Dose: 2.5 mg Morphine Sulfate (Morphine 2 Mg/1 Ml Inj) 2 mg IV Q4H PRN PRN Reason: Pain, Moderate (4-6) Naloxone HCl (Naloxone 0.4 Mg/1 Ml Inj) 0.1 mg IV Q2MIN PRN PRN Reason: Res Rate </= 8 or 02 SAT < 92% Nitroglycerin (Nitroglycerin 0.4 Mg Tab Subl) 0.4 mg SL .Q5MIN PRN PRN Reason: Chest Pain Ondansetron HCl (Ondansetron 4 Mg/2 Ml Inj) 4 mg IV Q4H PRN PRN Reason: Nausea And Vomiting Potassium Chloride (Potassium Chloride Er 10 Meq Tab) 10 meq PO QDAY [facility] Last Admin: 06/23/21 09:14 Dose: 10 meq Senna (Sennosides 8.6 Mg Tab) 8.6 mg PO Q12HR [facility] Last Admin: 06/23/21 09:07 Dose: 8.6 mg Sodium Chloride (Sodium Chloride 0.9% 10 Ml Flush Syringe) 10 ml IV BID [facility] Last Admin: 06/23/21 09:16 Dose: 10 ml Sodium Chloride (Sodium Chloride 0.9% 10 Ml Flush Syringe) 10 ml IV PRN PRN PRN Reason: LINE FLUSH Physical Examination Vital signs: Vital Signs Temp Pulse Resp BP Pulse Ox 97.5 F L 76 16 138/64 98 06/22/21 06:43 06/22/21 06:43 06/22/21 06:43 06/22/21 06:43 06/22/21 06:43 General appearance: alert, other (morbidly obese) Eyes: non-icteric ENT: oropharynx moist Neck: other (large in circumference) Effort: normal Ascultation: Bilateral: wheezes Results - Laboratory Findings CBC and BMP: 06/23/21 04:43 06/23/21 04:43 ABG ABG pH 7.327 pH Units (7.350-7.450) L 06/23/21 10:15 ABG pCO2 51.5 mm Hg 06/23/21 10:15 ABG pO2 61.1 mm Hg (80.0-90.0) L 06/23/21 10:15 ABG O2 Saturation 90.2 % (95.0-99.0) L 06/23/21 10:15 PT/INR, D-dimer PT 15.9 Sec. (12.2-14.9) H 06/22/21 06:51 INR 1.14 (0.87-1.13) H 06/22/21 06:51 Abnormal lab findings: Abnormal Labs 06/22/21 06/22/21 06/22/21 06:51 06:51 06:52 MCH 26 L RDW 16.2 H Plt Count 114 L Lymph % (Auto) 12.4 L [place] % (Auto) 12.4 H Lymph # (Auto) 0.6 L Seg Neutrophils % 71.0 H PT 15.9 H INR 1.14 H ABG pH ABG pO2 ABG HCO3 ABG O2 Saturation ABG Hemoglobin Oxyhemoglobin BUN Creatinine Glucose 138 H POC Glucose Hemoglobin A1c Calcium NT-Pro-B Natriuret Pep Albumin 3.3 L 06/22/21 06/22/21 06/22/21 06:52 06:52 16:03 MCH RDW Plt Count Lymph % (Auto) [place] % (Auto) Lymph # (Auto) Seg Neutrophils % PT INR ABG pH ABG pO2 ABG HCO3 ABG O2 Saturation ABG Hemoglobin Oxyhemoglobin BUN Creatinine Glucose POC Glucose 156 H Hemoglobin A1c 6.6 H Calcium NT-Pro-B Natriuret Pep 9614 H Albumin 06/22/21 06/23/21 06/23/21 21:14 04:43 04:43 MCH 26 L RDW 16.2 H Plt Count Lymph % (Auto) 8.1 L [place] % (Auto) Lymph # (Auto) 0.4 L Seg Neutrophils % 89.1 H PT INR ABG pH ABG pO2 ABG HCO3 ABG O2 Saturation ABG Hemoglobin Oxyhemoglobin BUN 22 H Creatinine 1.4 H Glucose 295 H POC Glucose 290 H Hemoglobin A1c Calcium 8.0 L NT-Pro-B Natriuret Pep Albumin 06/23/21 06/23/21 06/23/21 07:48 10:15 11:23 MCH RDW Plt Count Lymph % (Auto) [place] % (Auto) Lymph # (Auto) Seg Neutrophils % PT INR ABG pH 7.327 L ABG pO2 61.1 L ABG HCO3 26.4 H ABG O2 Saturation 90.2 L ABG Hemoglobin 11.7 L Oxyhemoglobin 88.3 L BUN Creatinine Glucose POC Glucose 229 H 229 H Hemoglobin A1c Calcium NT-Pro-B Natriuret Pep Albumin - Diagnostic Findings Chest x-ray: image reviewed Assessment and Plan 71 y/o female with dyspnea, more so related to volume overload and CHF with possible asthma exacerbation. 1. Feel more volume than asthma. Please change to oral steroids and taper qu ickly 2. Patient stable on room air 3. Diuresis per cardiology 4. Will see as needed.
--- NOTE | 2021-06-23 14:14 | Progress Note ---
Assessment and Plan Patient is 71-year-old female with a past medical history of coronary artery disease, cardiomyopathy EF 55 to 60%, pulmonary hypertension, hypertension, asthma, right AKA, left leg chronic lymphadenopathy presented to the ED with a complaint of progressively worsening shortness of breath x1 week. Chest [id number], CHF. 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 We will continue IV diuresis for now. Patient stated that she had recent vascular procedure by Dr. Christiansen, will consult vascular. We will continue to follow BMP, will continue to adjust medications. Continue nebulizer breathing treatment and supplemental O2 as needed. BiPAP at bedtime. Subjective Date of service: 06/23/21 Principal diagnosis: Acute on chronic diastolic heart failure, asthma exacerbation Interval history: Patient seen and examined. Medical records and medication list reviewed. No acute event overnight noted by the RN. Patient denies any chest pain but complains of difficulty breathing even on resting. Also endorses significant lower extremity edema, patient is tolerating diet. Discussed plan of care at bedside with patient. Objective - Exam Narrative Exam: GENERAL: well-developed and morbidly obese elderly female lying on bed appeared to be in no discomfort. HEENT: Normocephalic. Atraumatic. No conjunctival congestion or icterus. Patient has moist mucous membranes. NECK: Supple. Trachea midline. CHEST/LUNGS: Clear to auscultated bilaterally, breathing nonlabored. No wheezes crackles or rhonchi. HEART/CARDIOVASCULAR: Regular in rate and rhythm. S1 and S2 positive. ABDOMEN: Abdomen is soft, nontender, obese. Patient has normal bowel sounds. SKIN: There is no rash. Warm and dry. NEURO: No focal motor deficit. Follows command. MUSCULOSKELETAL: No joint effusion or tenderness. EXTRIMITY: Positive edema on left lower extremity, no cyanosis or clubbing. Status post right AKA PSYCH: Cooperative. - Constitutional Vitals: Vital Signs - 12hr 06/23/21 06/23/21 06/23/21 03:36 04:19 07:45 Temperature 97.4 F L 98.7 F Pulse Rate 67 53 L 75 Pulse Rate [ Throughout] Respiratory 16 16 18 Rate Respiratory Rate [ Throughout] Blood Pressure 112/71 135/69 O2 Sat by Pulse 100 96 95 Oximetry 06/23/21 06/23/21 06/23/21 08:00 09:05 09:06 Temperature Pulse Rate 75 75 Pulse Rate [ 69 Throughout] Respiratory 20 Rate Respiratory 18 Rate [ Throughout] Blood Pressure 135/69 135/69 O2 Sat by Pulse Oximetry 06/23/21 06/23/21 06/23/21 09:30 09:40 11:26 Temperature 98.0 F Pulse Rate 73 Pulse Rate [ Throughout] Respiratory 18 18 Rate Respiratory Rate [ Throughout] Blood Pressure 147/79 O2 Sat by Pulse 94 95 98 Oximetry 06/23/21 13:49 Temperature Pulse Rate 73 Pulse Rate [ Throughout] Respiratory Rate Respiratory Rate [ Throughout] Blood Pressure 147/79 O2 Sat by Pulse Oximetry - Labs CBC & Chem 7: 06/23/21 04:43 06/23/21 04:43 Labs: Abnormal lab results 06/22/21 06/22/21 06/23/21 Range/Units 16:03 21:14 04:43 MCH 26 L (28-32) pg RDW 16.2 H (13.2-15.2) % Lymph % (Auto) 8.1 L (13.4-35.0) % Lymph # (Auto) 0.4 L (1.2-5.4) K/mm3 Seg Neutrophils % 89.1 H (40.0-70.0) % ABG pH (7.350-7.450) pH Units ABG pO2 (80.0-90.0) mm Hg ABG HCO3 (20.0-26.0) mmol/L ABG O2 Saturation (95.0-99.0) % ABG Hemoglobin (12.0-16.0) gm/dl Oxyhemoglobin (95.0-99.0) % BUN (7-17) mg/dL Creatinine (0.6-1.2) mg/dL Glucose (65-100) mg/dL POC Glucose 156 H 290 H (70-105) mg/dL Calcium (8.4-10.2) mg/dL 03/06/23/21 06/23/21 Range/Units 04:43 07:48 10:15 MCH (28-32) pg RDW (13.2-15.2) % Lymph % (Auto) (13.4-35.0) % Lymph # (Auto) (1.2-5.4) K/mm3 Seg Neutrophils % (40.0-70.0) % ABG pH 7.327 L (7.350-7.450) pH Units ABG pO2 61.1 L (80.0-90.0) mm Hg ABG HCO3 26.4 H (20.0-26.0) mmol/L ABG O2 Saturation 90.2 L (95.0-99.0) % ABG Hemoglobin 11.7 L (12.0-16.0) gm/dl Oxyhemoglobin 88.3 L (95.0-99.0) % BUN 22 H (7-17) mg/dL Creatinine 1.4 H (0.6-1.2) mg/dL Glucose 295 H (65-100) mg/dL POC Glucose 229 H (70-105) mg/dL Calcium 8.0 L (8.4-10.2) mg/dL 06/23/21 Range/Units 11:23 MCH (28-32) pg RDW (13.2-15.2) % Lymph % (Auto) (13.4-35.0) % Lymph # (Auto) (1.2-5.4) K/mm3 Seg Neutrophils % (40.0-70.0) % ABG pH (7.350-7.450) pH Units ABG pO2 (80.0-90.0) mm Hg ABG HCO3 (20.0-26.0) mmol/L ABG O2 Saturation (95.0-99.0) % ABG Hemoglobin (12.0-16.0) gm/dl Oxyhemoglobin (95.0-99.0) % BUN (7-17) mg/dL Creatinine (0.6-1.2) mg/dL Glucose (65-100) mg/dL POC Glucose 229 H (70-105) mg/dL Calcium (8.4-10.2) mg/dL HEART Score - HEART Score Troponin: Troponin T < 0.010 ng/mL (0.00-0.029) 06/22/21 06:51
[2021-06-23] MEDS: INSULIN GLARGINE 100 UNITS/ML SUB-Q SCH (22:18)
[2021-06-24 05:37] LABS: Calcium 8.2 mg/dL (8.4-10.2)
[2021-06-24] MEDS: hydrALAZINE 25 MG TAB PO SCH ×3 (06:30→22:12)
[2021-06-24] MEDS: FUROSEMIDE 40 MG/4 ML INJ IV SCH ×2 (06:30→18:12)
[2021-06-24] MEDS: methylPREDNISolone Sod Succinate 40 MG/1 ML INJ IV SCH ×3 (06:30→22:15)
[2021-06-24] MEDS: HEPARIN 5,000 UNIT/1 ML VIAL SUB-Q SCH ×3 (06:31→22:15)
--- NOTE | 2021-06-24 07:36 | Progress Note ---
Assessment and Plan - Patient Problems (1) Acute on chronic diastolic heart failure Current Visit: Yes Status: Acute (2) CHF exacerbation Current Visit: Yes Status: Acute (3) Severe pulmonary hypertension Current Visit: Yes Status: Acute (4) Asthma Current Visit: No Status: Chronic (5) Essential hypertension Current Visit: No Status: Chronic (6) HTN (hypertension) Current Visit: No Status: Chronic (7) Type II diabetes mellitus Current Visit: No Status: Chronic Subjective Principal diagnosis: Acute on chronic diastolic heart failure, asthma exacerbation Interval history: Still sob but feels better reports that she used pap therapy overnight Objective Vital Signs - 12hr 06/23/21 06/23/21 06/23/21 20:00 22:12 22:13 Temperature Pulse Rate 80 Pulse Rate [ 69 Throughout] Respiratory Rate Respiratory 18 Rate [ Throughout] Blood Pressure 127/67 127/67 O2 Sat by Pulse 96 Oximetry 06/23/21 06/23/21 06/24/21 23:28 23:56 00:26 Temperature 98.3 F Pulse Rate 65 68 Pulse Rate [ Throughout] Respiratory 18 20 Rate Respiratory Rate [ Throughout] Blood Pressure 137/72 O2 Sat by Pulse 91 99 91 Oximetry 06/24/21 06/24/21 06/24/21 03:12 03:27 06:30 Temperature 98.0 F Pulse Rate 60 63 Pulse Rate [ Throughout] Respiratory 14 18 Rate Respiratory Rate [ Throughout] Blood Pressure 134/55 134/55 O2 Sat by Pulse 99 99 Oximetry Constitutional: alert, other (morbidly obese, mild distress) Eyes: non-icteric ENT: oropharynx moist Neck: supple, other (large in circumference) Effort: normal Ascultation: Bilateral: wheezes (mild) Cardiovascular: regular rate and rhythm Gastrointestinal: normoactive bowel sounds, soft, non-distended, other (obese) Integumentary: normal Neurologic: normal mental status, non-focal exam CBC and BMP: 06/23/21 04:43 06/24/21 04:21 ABG, PT/INR, D-dimer: ABG ABG pH 7.327 pH Units (7.350-7.450) L 06/23/21 10:15 ABG pCO2 51.5 mm Hg 06/23/21 10:15 ABG pO2 61.1 mm Hg (80.0-90.0) L 06/23/21 10:15 ABG O2 Saturation 90.2 % (95.0-99.0) L 06/23/21 10:15 PT/INR, D-dimer PT 15.9 Sec. (12.2-14.9) H 06/22/21 06:51 INR 1.14 (0.87-1.13) H 06/22/21 06:51 Abnormal lab findings: Abnormal Labs 06/22/21 06/22/21 06/22/21 06:51 06:51 06:52 MCH 26 L RDW 16.2 H Plt Count 114 L Lymph % (Auto) 12.4 L [place] % (Auto) 12.4 H Lymph # (Auto) 0.6 L Seg Neutrophils % 71.0 H PT 15.9 H INR 1.14 H ABG pH ABG pO2 ABG HCO3 ABG O2 Saturation ABG Hemoglobin Oxyhemoglobin BUN Creatinine Glucose 138 H POC Glucose Hemoglobin A1c Calcium NT-Pro-B Natriuret Pep Albumin 3.3 L 06/22/21 06/22/21 06/22/21 06:52 06:52 16:03 MCH RDW Plt Count Lymph % (Auto) [place] % (Auto) Lymph # (Auto) Seg Neutrophils % PT INR ABG pH ABG pO2 ABG HCO3 ABG O2 Saturation ABG Hemoglobin Oxyhemoglobin BUN Creatinine Glucose POC Glucose 156 H Hemoglobin A1c 6.6 H Calcium NT-Pro-B Natriuret Pep 9614 H Albumin 06/22/21 06/23/21 06/23/21 21:14 04:43 04:43 MCH 26 L RDW 16.2 H Plt Count Lymph % (Auto) 8.1 L [place] % (Auto) Lymph # (Auto) 0.4 L Seg Neutrophils % 89.1 H PT INR ABG pH ABG pO2 ABG HCO3 ABG O2 Saturation ABG Hemoglobin Oxyhemoglobin BUN 22 H Creatinine 1.4 H Glucose 295 H POC Glucose 290 H Hemoglobin A1c Calcium 8.0 L NT-Pro-B Natriuret Pep Albumin 06/23/21 06/23/21 06/23/21 07:48 10:15 11:23 MCH RDW Plt Count Lymph % (Auto) [place] % (Auto) Lymph # (Auto) Seg Neutrophils % PT INR ABG pH 7.327 L ABG pO2 61.1 L ABG HCO3 26.4 H ABG O2 Saturation 90.2 L ABG Hemoglobin 11.7 L Oxyhemoglobin 88.3 L BUN Creatinine Glucose POC Glucose 229 H 229 H Hemoglobin A1c Calcium NT-Pro-B Natriuret Pep Albumin 06/23/21 06/23/21 06/24/21 15:43 20:35 04:21 MCH RDW Plt Count Lymph % (Auto) [place] % (Auto) Lymph # (Auto) Seg Neutrophils % PT INR ABG pH ABG pO2 ABG HCO3 ABG O2 Saturation ABG Hemoglobin Oxyhemoglobin BUN 33 H Creatinine 1.5 H Glucose 287 H POC Glucose 247 H 291 H Hemoglobin A1c Calcium 8.2 L NT-Pro-B Natriuret Pep Albumin 06/24/21 07:21 MCH RDW Plt Count Lymph % (Auto) [place] % (Auto) Lymph # (Auto) Seg Neutrophils % PT INR ABG pH ABG pO2 ABG HCO3 ABG O2 Saturation ABG Hemoglobin Oxyhemoglobin BUN Creatinine Glucose POC Glucose 213 H Hemoglobin A1c Calcium NT-Pro-B Natriuret Pep Albumin
[2021-06-24] MEDS: INSULIN LISPRO 100 UNIT/ML SUB-Q SCH ×4 (09:03→22:15)
[2021-06-24 09:05] LABS: ABG Base Excess 0.8 mmol/L (-2.0-3.0); ABG HCO3 27.5 mmol/L (20.0-26.0); ABG Methemoglobin 0.5 % (0.0-1.5); ABG Oxygen Saturation 94.7 % (95.0-99.0); ABG PCO2 53.8 mm Hg; ABG PH 7.326 pH Units (7.350-7.450); ABG PO2 69.6 mm Hg (80.0-90.0)
[2021-06-24] MEDS: carvediloL 12.5 MG TAB PO SCH ×2 (09:05→22:10)
[2021-06-24] MEDS: ACETAMINOPHEN 325 MG TAB PO PRN (09:05)
[2021-06-24] MEDS: ASPIRIN 81 MG TAB CHEW PO SCH (09:06)
[2021-06-24] MEDS: SENNOSIDES 8.6 MG TAB PO SCH ×2 (09:06→22:10)
[2021-06-24] MEDS: DOCUSATE SODIUM 100 MG CAP PO SCH ×2 (09:06→22:09)
[2021-06-24] MEDS: FAMOTIDINE 20 MG TAB PO SCH ×2 (09:06→22:10)
[2021-06-24] MEDS: ESCITALOPRAM 10 MG TAB PO SCH (09:06)
[2021-06-24] MEDS: POTASSIUM CHLORIDE ER 10 MEQ TAB PO SCH (09:06)
[2021-06-24] MEDS: cephALEXin 500 MG CAP PO SCH ×2 (09:06→22:09)
[2021-06-24] MEDS: metOLazone 2.5 MG TAB PO SCH (09:06)
[2021-06-24] MEDS: GABAPENTIN 300 MG CAP PO SCH ×2 (09:07→22:09)
[2021-06-24] MEDS: ARFORMOTEROL 15 MCG/2 ML NEBU IH SCH ×2 (09:31→21:28)
[2021-06-24] MEDS: BUDESONIDE 0.5 MG/2 ML NEBU IH SCH ×2 (09:31→21:28)
--- NOTE | 2021-06-24 10:51 | Progress Note ---
Assessment and Plan Patient is 71-year-old female with a past medical history of coronary artery disease, cardiomyopathy EF 55 to 60%, pulmonary hypertension, hypertension, asthma, right AKA presented to the ED with a complaint of progressively worsening shortness of breath x1 week Acute on chronic diastolic heart failure Severe pulmonary hypertension Asthma- Pulmonology following Coronary artery disease Cardiomyopathy Hypertension Chronic lymphedema-vascular consulted PET Perfusion Study (Rest/Stress) 06/14/2021- Negative Lexiscan . Normal rest and stress myocardial PET perfusion scan. No significant ischemia. No wall motion abnormality. Gated SPECT at rest 50%, stress 57%. Coronary flow reserve globally at 1.67 with RV dilatation noted. Echocardiogram 06/14/2021- Contrast was utilized. There is normal LV systolic function. LV wall thickness is mild to moderately increased. The estimated left ventricle ejection fraction is 55-60%. There is increased left atrial pressure and Grade II diastolic dysfunction. There is normal right ventricular size, wall dimension, and systolic function. The LA volume is moderately increased. There is no aortic valve stenosis or regurgitation. There is no mitral regurgitation. There is mild tricuspid regurgitation. There is severe pulmonary hypertension. The estimated RV systolic pressure is >60. There is no pulmonic regurgitation. There is a trace posterior pericardial effusion. No left ventricular thrombus noted with LV contrast images. Outpatient medications: Lasix 40 mg p.o. twice daily, hydralazine 50 mg p.o. 3 times daily, metolazone 2.5 mg p.o. daily, aspirin, atorvastatin, Coreg 12.5 mg p.o. twice daily, Imdur 30 mg p.o. daily, Plan: Patient having good urine output and improvement in respiratory status. Creatinine noted to have slight elevation however will continue diuresis with Lasix 40 mg IV twice daily and metolazone if okay with pulmonology Strict I&O's, close monitoring of renal indicis, and repeat BMP. If creatinine continues to rise will stop diuresis Continue outpatient medications Patient seen in conjunction with Dr. Ann who agrees with this plan of care - Patient Problems (1) Acute on chronic diastolic heart failure Current Visit: Yes Status: Acute (2) Severe pulmonary hypertension Current Visit: Yes Status: Acute (3) Asthma Current Visit: No Status: Chronic (4) Essential hypertension Current Visit: No Status: Chronic (5) HTN (hypertension) Current Visit: No Status: Chronic (6) History of PTCA Current Visit: No Status: Chronic (7) GUIDO (obstructive sleep apnea) Current Visit: No Status: Chronic (8) PVD (peripheral vascular disease) Current Visit: No Status: Chronic Subjective Date of service: 06/24/21 Principal diagnosis: Acute on chronic diastolic heart failure, asthma exacerbation Interval history: Patient sitting in bed in no acute distress. Patient reports feeling better and still having significant urine output Sinus 60 to 70s on monitor with PACs Objective Vital Signs Temp Pulse Pulse Resp Resp BP Pulse Ox 06/24/21 09:46 97 06/24/21 09:31 75 18 06/24/21 09:06 74 138/61 06/24/21 09:05 74 18 138/61 06/24/21 07:37 98.4 F 74 20 138/61 97 06/24/21 06:30 134/55 06/24/21 03:27 98.0 F 63 18 134/55 99 06/24/21 03:12 60 14 99 06/24/21 00:26 91 06/23/21 23:56 68 20 99 06/23/21 23:28 98.3 F 65 18 137/72 91 06/23/21 22:13 80 127/67 06/23/21 22:12 127/67 06/23/21 20:00 69 18 96 06/23/21 19:18 99.1 F 85 16 127/67 94 06/23/21 15:46 97.9 F 66 18 130/54 94 06/23/21 13:49 73 147/79 06/23/21 11:43 73 06/23/21 11:26 98.0 F 73 18 147/79 98 - Physical Examination General: No Apparent Distress HEENT: Positive: Normocephaly Neck: Positive: trachea midline Cardiac: Positive: Reg Rate and Rhythm Lungs: Positive: Decreased Breath Sounds Neuro: Positive: Grossly Intact Abdomen: Positive: Soft Skin: Negative: Rash, Suspicious Lesions, Ulceration Extremities: Present: upper extr. pulses, edema - Labs and Meds Comprehensive Metabolic Panel 06/24/21 Range/Units 04:21 Sodium 140 (137-145) mmol/L Potassium 4.3 (3.6-5.0) mmol/L Chloride 102.0 (98-107) mmol/L Carbon Dioxide 26 (22-30) mmol/L BUN 33 H (7-17) mg/dL Creatinine 1.5 H (0.6-1.2) mg/dL Glucose 287 H (65-100) mg/dL Calcium 8.2 L (8.4-10.2) mg/dL - Imaging and Cardiology Echo: report reviewed - Telemetry EKG Rhythm: Sinus Rhythm - EKG Sinus rhythms and dysrhythmias: sinus rhythm Supraventricular dysrhythmia: atrial premature complexe
--- NOTE | 2021-06-24 11:02 | Consultation ---
History of Present Illness - Reason for Consult Consult date: 06/24/21 Lymphedema - History of Present Illness Patient with a history of CHF and lymphedema with medical noncompliance. Patient has right AKA secondary to MRSA infection following total knee replacement. At time of examination, the patient is complaining of improved shortness of breath, he still has pitting edema to lower abdomen on her left leg. A sequela of venous hypertension including hemosiderin staining and lipodermatosclerosis are present within her left lower leg. I complains of only some tenseness to the leg. Past History Past Medical History: arthritis, CAD, diabetes, hypertension, hyperlipidemia Past Surgical History: hysterectomy, Other (right aka) Social history: no significant social history, full code Family history: no significant family history Medications and Allergies Allergies Allergy/AdvReac Type Severity Reaction Status Date / Time ROSALVA Inhibitors AdvReac Intermediate Angioedema Verified 06/23/21 08:04 codeine AdvReac Nausea Verified 06/23/21 08:04 Home Medications Medication Instructions Recorded Confirmed Last Taken Type Escitalopram Oxalate [Lexapro] 10 mg PO QDAY 08/01/13 06/23/21 10/04/17 09:00 History Gabapentin [Neurontin] 600 mg PO BID 08/01/13 06/23/21 10/04/17 21:00 History Isosorbide Mononitrate [Isosorbide 30 mg PO QDAY 08/01/13 06/23/21 10/04/17 21:00 History Mononitrate ER] Zolpidem [Ambien] 5 mg PO QHS PRN 08/01/13 06/23/21 10/04/17 21:00 History metFORMIN [Glucophage] 500 mg PO BID 08/01/13 06/23/21 10/04/17 21:00 History AtorvaSTATin [Lipitor] 40 mg PO QHS 08/30/17 06/23/21 10/04/17 17:00 History Omeprazole 40 mg PO DAILY 08/30/17 06/23/21 10/04/17 09:00 History Alirocumab [Praluent Pen] 1 syr SQ Q2W 06/23/21 06/23/21 Unknown History Aspirin EC [Halfprin EC] 81 mg PO QDAY 06/23/21 06/23/21 Unknown History Fluticasone/Umeclidin/Vilanter 1 puff INHALATION DAILY 06/23/21 06/23/21 Unknown History [Trelegy Ellipta 100-62.5-25(Nf)] Furosemide [Lasix] 40 mg PO BID 06/23/21 06/23/21 Unknown History Hydralazine HCl 50 mg PO TID 06/23/21 06/23/21 Unknown History Insulin Aspart [Novolog Flexpen] 0 unit SQ AC 06/23/21 06/23/21 Unknown History Insulin Detemir [Levemir Flextouch] 25 unit SQ QHS 06/23/21 06/23/21 Unknown Hi story Ipratropium/Albuterol Sulfate 1 spray IH QDAY 06/23/21 06/23/21 Unknown History [Combivent Respimat] Metoclopramide [Reglan] 10 mg PO BID 06/23/21 06/23/21 Unknown History Active Meds: Active Medications Acetaminophen (Acetaminophen 325 Mg Tab) 650 mg PO Q4H PRN PRN Reason: Pain MILD(1-3)/Fever >100.5/GONZALEZ Last Admin: 06/24/21 09:05 Dose: 650 mg Albuterol (Albuterol 2.5 Mg/3 Ml Nebu) 2.5 mg IH Q3HRT PRN PRN Reason: Shortness Of Breath Last Admin: 06/22/21 16:30 Dose: 2.5 mg Arformoterol Tartrate (Arformoterol 15 Mcg/2 Ml Nebu) 15 mcg IH Q12HRT [facility] Last Admin: 06/24/21 09:31 Dose: 15 mcg Aspirin (Aspirin 81 Mg Tab Chew) 81 mg PO QDAY [facility] Last Admin: 06/24/21 09:06 Dose: 81 mg Atorvastatin Calcium (Atorvastatin 40 Mg Tab) 40 mg PO QHS [facility] Last Admin: 06/23/21 22:14 Dose: 40 mg Budesonide (Budesonide 0.5 Mg/2 Ml Nebu) 0.5 mg IH Q12HRT [facility] Last Admin: 06/24/21 09:31 Dose: 0.5 mg Carvedilol (Carvedilol 12.5 Mg Tab) 12.5 mg PO BID [facility] Last Admin: 06/24/21 09:05 Dose: 12.5 mg Cephalexin (Cephalexin 500 Mg Cap) 500 mg PO Q12HR [facility]; Protocol Stop: 06/26/21 22:01 Last Admin: 06/24/21 09:06 Dose: 500 mg Dextrose (Dextrose 10% *Hypoglycemia) 0 ml IV PRN PRN PRN Reason: Hypoglycemia Docusate Sodium (Docusate Sodium 100 Mg Cap) 100 mg PO BID [facility] Last Admin: 06/24/21 09:06 Dose: 100 mg Escitalopram Oxalate (Escitalopram 10 Mg Tab) 10 mg PO DAILY [facility] Last Admin: 06/24/21 09:06 Dose: 10 mg Famotidine (Famotidine 20 Mg Tab) 20 mg PO BID [facility] Last Admin: 06/24/21 09:06 Dose: 20 mg Furosemide (Furosemide 40 Mg/4 Ml Inj) 40 mg IV BID@0600,1800 [facility] Last Admin: 06/24/21 06:30 Dose: 40 mg Gabapentin (Gabapentin 300 Mg Cap) 600 mg PO BID [facility] Last Admin: 06/24/21 09:07 Dose: 600 mg Heparin Sodium (Porcine) (Heparin 5,000 Unit/1 Ml Vial) 5,000 unit SUB-Q Q8HR [facility] Last Admin: 06/24/21 06:31 Dose: 5,000 unit Hydralazine HCl (Hydralazine 25 Mg Tab) 50 mg PO Q8HR [facility] Last Admin: 06/24/21 06:30 Dose: 50 mg Insulin Glargine (Insulin Glargine 100 Units/Ml) 30 units SUB-Q QHS [facility] Last Admin: 06/23/21 22:18 Dose: 30 units Insulin Human Lispro (Insulin Lispro 100 Unit/Ml) 0 unit SUB-Q [facility]; Protocol Last Admin: 06/24/21 09:03 Dose: 3 unit Isosorbide Mononitrate (Isosorbide Mononitrate Er 30 Mg Tab) 30 mg PO QDAY [facility] Last Admin: 06/24/21 09:06 Dose: 30 mg Methylprednisolone Sodium Succinate (Methylprednisolone Sod Succinate 40 Mg/1 Ml Inj) 40 mg IV Q8HR [facility] Last Admin: 06/24/21 06:30 Dose: 40 mg Metoclopramide HCl (Metoclopramide 10 Mg/2 Ml Inj) 10 mg IV Q6H PRN PRN Reason: Nausea And Vomiting Metolazone (Metolazone 2.5 Mg Tab) 2.5 mg PO QDAY [facility] Last Admin: 06/24/21 09:06 Dose: 2.5 mg Morphine Sulfate (Morphine 2 Mg/1 Ml Inj) 2 mg IV Q4H PRN PRN Reason: Pain, Moderate (4-6) Naloxone HCl (Naloxone 0.4 Mg/1 Ml Inj) 0.1 mg IV Q2MIN PRN PRN Reason: Res Rate </= 8 or 02 SAT < 92% Nitroglycerin (Nitroglycerin 0.4 Mg Tab Subl) 0.4 mg SL .Q5MIN PRN PRN Reason: Chest Pain Ondansetron HCl (Ondansetron 4 Mg/2 Ml Inj) 4 mg IV Q4H PRN PRN Reason: Nausea And Vomiting Potassium Chloride (Potassium Chloride Er 10 Meq Tab) 10 meq PO QDAY [facility] Last Admin: 06/24/21 09:06 Dose: 10 meq Senna (Sennosides 8.6 Mg Tab) 8.6 mg PO Q12HR [facility] Last Admin: 06/24/21 09:06 Dose: 8.6 mg Sodium Chloride (Sodium Chloride 0.9% 10 Ml Flush Syringe) 10 ml IV BID [facility] Last Admin: 06/24/21 09:07 Dose: 10 ml Sodium Chloride (Sodium Chloride 0.9% 10 Ml Flush Syringe) 10 ml IV PRN PRN PRN Reason: LINE FLUSH Review of Systems All systems: negative Exam - Constitutional Vitals: Temp Pulse Resp BP Pulse Ox 98.4 F 75 18 138/61 97 06/24/21 07:37 06/24/21 09:31 06/24/21 09:31 06/24/21 09:06 06/24/21 09:46 General appearance: Present: no acute distress, obese - EENT Eyes: Present: EOM intact ENT: hearing intact - Neck Neck: Present: normal ROM - Respiratory Respiratory effort: normal - Extremities Extremities: abnormal (Per HPI) - Abdominal General gastrointestinal: Present: deferred - Rectal Rectal Exam: deferred - Psychiatric Psychiatric: appropriate mood/affect, cooperative Results - Labs CBC & Chem 7: 06/23/21 04:43 06/24/21 04:21 Labs: Abnormal lab results 06/23/21 06/23/21 06/23/21 Range/Units 10:15 11:23 15:43 ABG pH 7.327 L (7.350-7.450) pH Units ABG pO2 61.1 L (80.0-90.0) mm Hg ABG HCO3 26.4 H (20.0-26.0) mmol/L ABG O2 Saturation 90.2 L (95.0-99.0) % ABG Hemoglobin 11.7 L (12.0-16.0) gm/dl Oxyhemoglobin 88.3 L (95.0-99.0) % BUN (7-17) mg/dL Creatinine (0.6-1.2) mg/dL Glucose (65-100) mg/dL POC Glucose 229 H 247 H (70-105) mg/dL Calcium (8.4-10.2) mg/dL 06/23/21 06/24/21 06/24/21 Range/Units 20:35 04:21 07:21 ABG pH (7.350-7.450) pH Units ABG pO2 (80.0-90.0) mm Hg ABG HCO3 (20.0-26.0) mmol/L ABG O2 Saturation (95.0-99.0) % ABG Hemoglobin (12.0-16.0) gm/dl Oxyhemoglobin (95.0-99.0) % BUN 33 H (7-17) mg/dL Creatinine 1.5 H (0.6-1.2) mg/dL Glucose 287 H (65-100) mg/dL POC Glucose 291 H 213 H (70-105) mg/dL Calcium 8.2 L (8.4-10.2) mg/dL 06/24/21 Range/Units 08:50 ABG pH 7.326 L (7.350-7.450) pH Units ABG pO2 69.6 L (80.0-90.0) mm Hg ABG HCO3 27.5 H (20.0-26.0) mmol/L ABG O2 Saturation 94.7 L (95.0-99.0) % ABG Hemoglobin 11.3 L (12.0-16.0) gm/dl Oxyhemoglobin 92.8 L (95.0-99.0) % BUN (7-17) mg/dL Creatinine (0.6-1.2) mg/dL Glucose (65-100) mg/dL POC Glucose (70-105) mg/dL Calcium (8.4-10.2) mg/dL Assessment and Plan Patient with lymphedema improving with diuresis. She has sequela of superimposed venous hypertension. We will obtain a venous Doppler of her left leg to rule out DVT. In the outpatient setting, the patient may require aggressive lymphedema therapy including manual lymphatic drainage as well as lymphedema clinic in addition to complying with her medical therapy.
[2021-06-24 12:16] LABS: Calcium 8.2 mg/dL (8.4-10.2)
--- NOTE | 2021-06-24 14:54 | Progress Note ---
Assessment and Plan Patient is 71-year-old female with a past medical history of coronary artery disease, cardiomyopathy EF 55 to 60%, pulmonary hypertension, hypertension, asthma, right AKA, left leg chronic lymphadenopathy presented to the ED with a complaint of progressively worsening shortness of breath x1 week. Chest [id number], CHF. 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 We will continue IV diuresis for now. Patient stated that she had recent vascular procedure by Dr. Christiansen, will consult vascular. We will continue to follow BMP, will continue to adjust medications. Continue nebulizer breathing treatment and supplemental O2 as needed. BiPAP at bedtime. 06/24: cont iv diuresis, started on metolazone. Cr trended up, follow BMP. cont supplemental O2. pulmonary following. cont abx for possible cellulites Subjective Date of service: 06/24/21 Principal diagnosis: Acute on chronic diastolic heart failure, asthma exacerbation Interval history: Patient seen and examined. Medical records and medication list reviewed. No acute event overnight noted by the RN. Patient denies any chest pain but complains of difficulty breathing even on resting. still has significant lower extremity edema, patient is tolerating diet. Discussed plan of care at bedside with patient. Objective - Exam Narrative Exam: GENERAL: well-developed and morbidly obese elderly female lying on bed appeared to be in no discomfort. HEENT: Normocephalic. Atraumatic. No conjunctival congestion or icterus. Patient has moist mucous membranes. NECK: Supple. Trachea midline. CHEST/LUNGS: Clear to auscultated bilaterally, breathing nonlabored. No wheezes crackles or rhonchi. HEART/CARDIOVASCULAR: Regular in rate and rhythm. S1 and S2 positive. ABDOMEN: Abdomen is soft, nontender, obese. Patient has normal bowel sounds. SKIN: There is no rash. Warm and dry. NEURO: No focal motor deficit. Follows command. MUSCULOSKELETAL: No joint effusion or tenderness. EXTRIMITY: Positive edema on left lower extremity, no cyanosis or clubbing. Status post right AKA PSYCH: Cooperative. - Constitutional Vitals: Vital Signs - 12hr 06/24/21 06/24/21 06/24/21 03:12 03:27 06:30 Temperature 98.0 F Pulse Rate 60 63 Pulse Rate [ Throughout] Respiratory 14 18 Rate Respiratory Rate [ Throughout] Blood Pressure 134/55 134/55 O2 Sat by Pulse 99 99 Oximetry 06/24/21 06/24/21 06/24/21 07:37 09:05 09:06 Temperature 98.4 F Pulse Rate 74 74 74 Pulse Rate [ Throughout] Respiratory 20 18 Rate Respiratory Rate [ Throughout] Blood Pressure 138/61 138/61 138/61 O2 Sat by Pulse 97 Oximetry 06/24/21 06/24/21 06/24/21 09:31 09:46 10:00 Temperature Pulse Rate Pulse Rate [ 75 Throughout] Respiratory 18 Rate Respiratory 18 Rate [ Throughout] Blood Pressure O2 Sat by Pulse 97 97 Oximetry 06/24/21 06/24/21 06/24/21 11:06 11:12 13:22 Temperature 98.3 F Pulse Rate 51 L 61 61 Pulse Rate [ Throughout] Respiratory 20 18 Rate Respiratory Rate [ Throughout] Blood Pressure 137/70 126/61 126/61 O2 Sat by Pulse 94 99 Oximetry - Labs CBC & Chem 7: 06/23/21 04:43 06/25/21 06:31 Labs: Abnormal lab results 06/23/21 06/23/21 06/24/21 Range/Units 15:43 20:35 04:21 ABG pH (7.350-7.450) pH Units ABG pO2 (80.0-90.0) mm Hg ABG HCO3 (20.0-26.0) mmol/L ABG O2 Saturation (95.0-99.0) % ABG Hemoglobin (12.0-16.0) gm/dl Oxyhemoglobin (95.0-99.0) % BUN 33 H (7-17) mg/dL Creatinine 1.5 H (0.6-1.2) mg/dL Glucose 287 H (65-100) mg/dL POC Glucose 247 H 291 H (70-105) mg/dL Calcium 8.2 L (8.4-10.2) mg/dL 06/24/21 06/24/21 06/24/21 Range/Units 07:21 08:50 11:23 ABG pH 7.326 L (7.350-7.450) pH Units ABG pO2 69.6 L (80.0-90.0) mm Hg ABG HCO3 27.5 H (20.0-26.0) mmol/L ABG O2 Saturation 94.7 L (95.0-99.0) % ABG Hemoglobin 11.3 L (12.0-16.0) gm/dl Oxyhemoglobin 92.8 L (95.0-99.0) % BUN 34 H (7-17) mg/dL Creatinine 1.5 H (0.6-1.2) mg/dL Glucose 315 H (65-100) mg/dL POC Glucose 213 H (70-105) mg/dL Calcium 8.2 L (8.4-10.2) mg/dL 06/24/21 Range/Units 11:37 ABG pH (7.350-7.450) pH Units ABG pO2 (80.0-90.0) mm Hg ABG HCO3 (20.0-26.0) mmol/L ABG O2 Saturation (95.0-99.0) % ABG Hemoglobin (12.0-16.0) gm/dl Oxyhemoglobin (95.0-99.0) % BUN (7-17) mg/dL Creatinine (0.6-1.2) mg/dL Glucose (65-100) mg/dL POC Glucose 269 H (70-105) mg/dL Calcium (8.4-10.2) mg/dL HEART Score - HEART Score Troponin: Troponin T < 0.010 ng/mL (0.00-0.029) 06/22/21 06:51
--- NOTE | 2021-06-24 17:12 | Vascular Lab Report ---
DUPLEX DOPPLER LOWER EXTREMITY VEINS, LEFT INDICATION / CLINICAL INFORMATION: Left leg swelling. TECHNIQUE: Duplex doppler imaging was performed through the veins of the left lower extremity using venous compr ession and other maneuvers. COMPARISON: None available. FINDINGS: LEFT COMMON FEMORAL VEIN: Negative. LEFT FEMORAL VEIN: Negative. LEFT POPLITEAL VEIN: Negative. LEFT CALF VEINS: Negative. ADDITIONAL FINDINGS: None. IMPRESSION: 1. No sonographic evidence for DVT in the left lower extremity. Signer Name: Sachin Arndt MD Signed: 06/24/2021 5:08 PM Workstation Name: [id number]
[2021-06-24] MEDS: INSULIN GLARGINE 100 UNITS/ML SUB-Q SCH (22:15)
[2021-06-25] MEDS: methylPREDNISolone Sod Succinate 40 MG/1 ML INJ IV SCH ×3 (05:45→21:44)
[2021-06-25] MEDS: FUROSEMIDE 40 MG/4 ML INJ IV SCH ×2 (05:45→11:39)
[2021-06-25] MEDS: hydrALAZINE 25 MG TAB PO SCH ×3 (05:46→21:44)
[2021-06-25] MEDS: HEPARIN 5,000 UNIT/1 ML VIAL SUB-Q SCH ×3 (05:46→21:40)
[2021-06-25 07:26] LABS: Calcium 8.3 mg/dL (8.4-10.2)
--- NOTE | 2021-06-25 07:37 | Progress Note ---
Assessment and Plan - Patient Problems (1) Acute on chronic diastolic heart failure Current Visit: Yes Status: Acute (2) CHF exacerbation Current Visit: Yes Status: Acute (3) Severe pulmonary hypertension Current Visit: Yes Status: Acute (4) Asthma Current Visit: No Status: Chronic (5) Essential hypertension Current Visit: No Status: Chronic (6) HTN (hypertension) Current Visit: No Status: Chronic (7) Type II diabetes mellitus Current Visit: No Status: Chronic (8) Renal insufficiency Current Visit: Yes Status: Acute Subjective Principal diagnosis: Acute on chronic diastolic heart failure, asthma exacerbation Interval history: awake. Feels better Objective Vital Signs - 12hr 06/24/21 06/24/21 06/24/21 21:32 22:10 23:10 Temperature 97.9 F Pulse Rate 77 62 Pulse Rate [ 75 Throughout] Respiratory 16 Rate Respiratory 18 Rate [ Throughout] Blood Pressure 132/58 126/60 O2 Sat by Pulse 96 94 Oximetry 06/25/21 06/25/21 06/25/21 00:12 03:34 04:30 Temperature 97.9 F Pulse Rate 55 L 74 50 L Pulse Rate [ Throughout] Respiratory 17 18 20 Rate Respiratory Rate [ Throughout] Blood Pressure 144/56 O2 Sat by Pulse 97 97 100 Oximetry 06/25/21 06/25/21 04:53 05:46 Temperature Pulse Rate Pulse Rate [ Throughout] Respiratory Rate Respiratory Rate [ Throughout] Blood Pressure 144/56 O2 Sat by Pulse 97 Oximetry Constitutional: alert, other (morbidly obese, mild distress) Eyes: non-icteric ENT: oropharynx moist Neck: supple, other (large in circumference) Effort: normal Ascultation: Bilateral: wheezes (mild) Cardiovascular: regular rate and rhythm Gastrointestinal: normoactive bowel sounds, soft, non-distended, other (obese) Integumentary: normal Neurologic: normal mental status, non-focal exam CBC and BMP: 06/23/21 04:43 06/25/21 06:31 ABG, PT/INR, D-dimer: ABG ABG pH 7.326 pH Units (7.350-7.450) L 06/24/21 08:50 ABG pCO2 53.8 mm Hg 06/24/21 08:50 ABG pO2 69.6 mm Hg (80.0-90.0) L 06/24/21 08:50 ABG O2 Saturation 94.7 % (95.0-99.0) L 06/24/21 08:50 PT/INR, D-dimer PT 15.9 Sec. (12.2-14.9) H 06/22/21 06:51 INR 1.14 (0.87-1.13) H 06/22/21 06:51 Abnormal lab findings: Abnormal Labs 06/22/21 06/22/21 06/22/21 06:51 06:51 06:52 MCH 26 L RDW 16.2 H Plt Count 114 L Lymph % (Auto) 12.4 L [place] % (Auto) 12.4 H Lymph # (Auto) 0.6 L Seg Neutrophils % 71.0 H PT 15.9 H INR 1.14 H ABG pH ABG pO2 ABG HCO3 ABG O2 Saturation ABG Hemoglobin Oxyhemoglobin Sodium Chloride BUN Creatinine Glucose 138 H POC Glucose Hemoglobin A1c Calcium NT-Pro-B Natriuret Pep Albumin 3.3 L 06/22/21 06/22/21 06/22/21 06:52 06:52 16:03 MCH RDW Plt Count Lymph % (Auto) [place] % (Auto) Lymph # (Auto) Seg Neutrophils % PT INR ABG pH ABG pO2 ABG HCO3 ABG O2 Saturation ABG Hemoglobin Oxyhemoglobin Sodium Chloride BUN Creatinine Glucose POC Glucose 156 H Hemoglobin A1c 6.6 H Calcium NT-Pro-B Natriuret Pep 9614 H Albumin 06/22/21 06/23/21 06/23/21 21:14 04:43 04:43 MCH 26 L RDW 16.2 H Plt Count Lymph % (Auto) 8.1 L [place] % (Auto) Lymph # (Auto) 0.4 L Seg Neutrophils % 89.1 H PT INR ABG pH ABG pO2 ABG HCO3 ABG O2 Saturation ABG Hemoglobin Oxyhemoglobin Sodium Chloride BUN 22 H Creatinine 1.4 H Glucose 295 H POC Glucose 290 H Hemoglobin A1c Calcium 8.0 L NT-Pro-B Natriuret Pep Albumin 06/23/21 06/23/21 06/23/21 07:48 10:15 11:23 MCH RDW Plt Count Lymph % (Auto) [place] % (Auto) Lymph # (Auto) Seg Neutrophils % PT INR ABG pH 7.327 L ABG pO2 61.1 L ABG HCO3 26.4 H ABG O2 Saturation 90.2 L ABG Hemoglobin 11.7 L Oxyhemoglobin 88.3 L Sodium Chloride BUN Creatinine Glucose POC Glucose 229 H 229 H Hemoglobin A1c Calcium NT-Pro-B Natriuret Pep Albumin 06/23/21 06/23/21 06/24/21 15:43 20:35 04:21 MCH RDW Plt Count Lymph % (Auto) [place] % (Auto) Lymph # (Auto) Seg Neutrophils % PT INR ABG pH ABG pO2 ABG HCO3 ABG O2 Saturation ABG Hemoglobin Oxyhemoglobin Sodium Chloride BUN 33 H Creatinine 1.5 H Glucose 287 H POC Glucose 247 H 291 H Hemoglobin A1c Calcium 8.2 L NT-Pro-B Natriuret Pep Albumin 06/24/21 06/24/21 06/24/21 07:21 08:50 11:23 MCH RDW Plt Count Lymph % (Auto) [place] % (Auto) Lymph # (Auto) Seg Neutrophils % PT INR ABG pH 7.326 L ABG pO2 69.6 L ABG HCO3 27.5 H ABG O2 Saturation 94.7 L ABG Hemoglobin 11.3 L Oxyhemoglobin 92.8 L Sodium Chloride BUN 34 H Creatinine 1.5 H Glucose 315 H POC Glucose 213 H Hemoglobin A1c Calcium 8.2 L NT-Pro-B Natriuret Pep Albumin 06/24/21 06/24/21 06/24/21 11:37 16:46 20:02 MCH RDW Plt Count Lymph % (Auto) [place] % (Auto) Lymph # (Auto) Seg Neutrophils % PT INR ABG pH ABG pO2 ABG HCO3 ABG O2 Saturation ABG Hemoglobin Oxyhemoglobin Sodium Chloride BUN Creatinine Glucose POC Glucose 269 H 239 H 332 H Hemoglobin A1c Calcium NT-Pro-B Natriuret Pep Albumin 06/25/21 06/25/21 06:31 07:16 MCH RDW Plt Count Lymph % (Auto) [place] % (Auto) Lymph # (Auto) Seg Neutrophils % PT INR ABG pH ABG pO2 ABG HCO3 ABG O2 Saturation ABG Hemoglobin Oxyhemoglobin Sodium 135 L Chloride 97.1 L BUN 45 H Creatinine 1.7 H Glucose 273 H POC Glucose 239 H Hemoglobin A1c Calcium 8.3 L NT-Pro-B Natriuret Pep Albumin
[2021-06-25] MEDS ORDERED: ALIROCUMAB 75 MG/ML SQ SCH (08:45)
[2021-06-25] MEDS: INSULIN LISPRO 100 UNIT/ML SUB-Q SCH ×4 (08:52→21:41)
[2021-06-25] MEDS: BUDESONIDE 0.5 MG/2 ML NEBU IH SCH ×2 (09:22→21:09)
[2021-06-25] MEDS: ARFORMOTEROL 15 MCG/2 ML NEBU IH SCH ×2 (09:22→21:09)
--- NOTE | 2021-06-25 09:27 | Consultation ---
History of Present Illness - Reason for Consult Consult date: 06/25/21 acute renal failure - History of Present Illness The patient is a 71 year old female with medical hx of Morbid Obesity, DM, HTN, CAD, Asthma, GUIDO, GERD, Arthritis and R AKA secondary MRSA who presented to [facility] ED 06/22 with shortness of breath of one week. She reports increasing orthopnea. Reports LE swelling. She denies any fever, chills, cough, cp, N, V, D, abd pain, rash, dysuria, hematuria, weakness or dizziness. Patient was admitted with decompensated CHF. Creatinine level increased to 1.7. Nephrology was con sulted for evaluation and treatment of LEXIE. Past History Past Medical History: arthritis, CAD, diabetes, hypertension, hyperlipidemia Past Surgical History: hysterectomy, Other (right aka) Social history: no significant social history, full code Family history: no significant family history Medications and Allergies Allergies Allergy/AdvReac Type Severity Reaction Status Date / Time ROSALVA Inhibitors AdvReac Intermediate Angioedema Verified 06/23/21 08:04 codeine AdvReac Nausea Verified 06/23/21 08:04 Home Medications Medication Instructions Recorded Confirmed Last Taken Type Escitalopram Oxalate [Lexapro] 10 mg PO QDAY 08/01/13 06/23/21 10/04/17 09:00 History Gabapentin [Neurontin] 600 mg PO BID 08/01/13 06/23/21 10/04/17 21:00 History Isosorbide Mononitrate [Isosorbide 30 mg PO QDAY 08/01/13 06/23/21 10/04/17 21:00 History Mononitrate ER] Zolpidem [Ambien] 5 mg PO QHS PRN 08/01/13 06/23/21 10/04/17 21:00 History metFORMIN [Glucophage] 500 mg PO BID 08/01/13 06/23/21 10/04/17 21:00 History AtorvaSTATin [Lipitor] 40 mg PO QHS 08/30/17 06/23/21 10/04/17 17:00 History Omeprazole 40 mg PO DAILY 08/30/17 06/23/21 10/04/17 09:00 History Alirocumab [Praluent Pen] 1 syr SQ Q2W 06/23/21 06/23/21 Unknown History Aspirin EC [Halfprin EC] 81 mg PO QDAY 06/23/21 06/23/21 Unknown History Fluticasone/Umeclidin/Vilanter 1 puff INHALATION DAILY 06/23/21 06/23/21 Unknown History [Trelegy Ellipta 100-62.5-25(Nf)] Furosemide [Lasix] 40 mg PO BID 06/23/21 06/23/21 Unknown History Hydralazine HCl 50 mg PO TID 06/23/21 06/23/21 Unknown History Insulin Aspart [Novolog Flexpen] 0 unit SQ AC 06/23/21 06/23/21 Unknown History Insulin Detemir [Levemir Flextouch] 25 unit SQ QHS 06/23/21 06/23/21 Unknown History Ipratropium/Albuterol Sulfate 1 spray IH QDAY 06/23/21 06/23/21 Unknown History [Combivent Respimat] Metoclopramide [Reglan] 10 mg PO BID 06/23/21 06/23/21 Unknown History Active Meds: Active Medications Acetaminophen (Acetaminophen 325 Mg Tab) 650 mg PO Q4H PRN PRN Reason: Pain MILD(1-3)/Fever >100.5/GONZALEZ Last Admin: 06/24/21 09:05 Dose: 650 mg Albuterol (Albuterol 2.5 Mg/3 Ml Nebu) 2.5 mg IH Q3HRT PRN PRN Reason: Shortness Of Breath Last Admin: 06/22/21 16:30 Dose: 2.5 mg Arformoterol Tartrate (Arformoterol 15 Mcg/2 Ml Nebu) 15 mcg IH Q12HRT [facility] Last Admin: 06/25/21 09:22 Dose: 15 mcg Aspirin (Aspirin 81 Mg Tab Chew) 81 mg PO QDAY [facility] Last Admin: 06/24/21 09:06 Dose: 81 mg Atorvastatin Calcium (Atorvastatin 40 Mg Tab) 40 mg PO QHS [facility] Last Admin: 06/24/21 22:09 Dose: 40 mg Budesonide (Budesonide 0.5 Mg/2 Ml Nebu) 0.5 mg IH Q12HRT [facility] Last Admin: 06/25/21 09:22 Dose: 0.5 mg Carvedilol (Carvedilol 12.5 Mg Tab) 12.5 mg PO BID [facility] Last Admin: 06/24/21 22:10 Dose: 12.5 mg Cephalexin (Cephalexin 500 Mg Cap) 500 mg PO Q12HR [facility]; Protocol Stop: 06/26/21 22:01 Last Admin: 06/24/21 22:09 Dose: 500 mg Dextrose (Dextrose 10% *Hypoglycemia) 0 ml IV PRN PRN PRN Reason: Hypoglycemia Docusate Sodium (Docusate Sodium 100 Mg Cap) 100 mg PO BID [facility] Last Admin: 06/24/21 22:09 Dose: 100 mg Escitalopram Oxalate (Escitalopram 10 Mg Tab) 10 mg PO DAILY [facility] Last Admin: 06/24/21 09:06 Dose: 10 mg Famotidine (Famotidine 20 Mg Tab) 20 mg PO BID [facility] Last Admin: 06/24/21 22:10 Dose: 20 mg Furosemide (Furosemide 40 Mg/4 Ml Inj) 40 mg IV DAILY@0600 [facility] Gabapentin (Gabapentin 300 Mg Cap) 600 mg PO BID [facility] Last Admin: 06/24/21 22:09 Dose: 600 mg Heparin Sodium (Porcine) (Heparin 5,000 Unit/1 Ml Vial) 5,000 unit SUB-Q Q8HR [facility] Last Admin: 06/25/21 05:46 Dose: 5,000 unit Hydralazine HCl (Hydralazine 25 Mg Tab) 50 mg PO Q8HR [facility] Last Admin: 06/25/21 05:46 Dose: 50 mg Insulin Glargine (Insulin Glargine 100 Units/Ml) 30 units SUB-Q QHS [facility] Last Admin: 06/24/21 22:15 Dose: 30 units Insulin Human Lispro (Insulin Lispro 100 Unit/Ml) 0 unit SUB-Q [facility]; Protocol Last Admin: 06/24/21 22:15 Dose: 6 unit Insulin Human Regular (Insulin Regular, Human 100 Units/1 Ml) 10 units SUB-Q [facility] Isosorbide Mononitrate (Isosorbide Mononitrate Er 30 Mg Tab) 30 mg PO QDAY [facility] Last Admin: 06/24/21 09:06 Dose: 30 mg Methylprednisolone Sodium Succinate (Methylprednisolone Sod Succinate 40 Mg/1 Ml Inj) 40 mg IV Q8HR [facility] Last Admin: 06/25/21 05:45 Dose: 40 mg Metoclopramide HCl (Metoclopramide 10 Mg/2 Ml Inj) 10 mg IV Q6H PRN PRN Reason: Nausea And Vomiting Metolazone (Metolazone 2.5 Mg Tab) 2.5 mg PO QDAY [facility] Last Admin: 06/24/21 09:06 Dose: 2.5 mg Miscellaneous Medication (Alirocumab [Praluent Pen]) 1 syr SQ Q2W [facility] Morphine Sulfate (Morphine 2 Mg/1 Ml Inj) 2 mg IV Q4H PRN PRN Reason: Pain, Moderate (4-6) Naloxone HCl (Naloxone 0.4 Mg/1 Ml Inj) 0.1 mg IV Q2MIN PRN PRN Reason: Res Rate </= 8 or 02 SAT < 92% Nitroglycerin (Nitroglycerin 0.4 Mg Tab Subl) 0.4 mg SL .Q5MIN PRN PRN Reason: Chest Pain Ondansetron HCl (Ondansetron 4 Mg/2 Ml Inj) 4 mg IV Q4H PRN PRN Reason: Nausea And Vomiting Potassium Chloride (Potassium Chloride Er 10 Meq Tab) 10 meq PO QDAY [facility] Last Admin: 06/24/21 09:06 Dose: 10 meq Senna (Sennosides 8.6 Mg Tab) 8.6 mg PO Q12HR [facility] Last Admin: 06/24/21 22:10 Dose: 8.6 mg Sodium Chloride (Sodium Chloride 0.9% 10 Ml Flush Syringe) 10 ml IV BID [facility] Last Admin: 06/24/21 22:15 Dose: 10 ml Sodium Chloride (Sodium Chloride 0.9% 10 Ml Flush Syringe) 10 ml IV PRN PRN PRN Reason: LINE FLUSH Zolpidem Tartrate (Zolpidem 5 Mg Tab) 5 mg PO QHS PRN PRN Reason: Sleep Review of Systems ROS unobtainable: due to mental status Exam - Vital Signs Vital signs: Vital Signs Temp Pulse Resp BP Pulse Ox 97.5 F L 76 16 138/64 98 06/22/21 06:43 06/22/21 06:43 06/22/21 06:43 06/22/21 06:43 06/22/21 06:43 Results - Lab Results 06/23/21 04:43 06/26/21 05:42 Most recent lab results ABG pH 7.326 pH Units (7.350-7.450) L 06/24/21 08:50 ABG pCO2 53.8 mm Hg 06/24/21 08:50 ABG pO2 69.6 mm Hg (80.0-90.0) L 06/24/21 08:50 ABG HCO3 27.5 mmol/L (20.0-26.0) H 06/24/21 08:50 ABG O2 Saturation 94.7 % (95.0-99.0) L 06/24/21 08:50 Calcium 8.3 mg/dL (8.4-10.2) L 06/25/21 06:31 Assessment and Plan 1. Acute kidney injury: Vasomotor LEXIE in the setting of hypotension / CHF. Urine studies ordered. Baseline renal function is unknown. Monitor renal function. Avoid nephrotoxic agents. Meds dosage based on GFR. 2. FEN: Volume overload, diuretics, monitor. Monitor lytes and volume status. 3. Acute on chronic HFpEF: Cardiomyopathy. CHF pathway. Lasix. Followed by Cards. 4. Severe pulmonary hypertension. 5. Coronary artery disease 6. Hypertension: BP controlled. 7. Asthma. Subjective: Patient was seen and examined at the bedside. Examination: General appearance: well-developed, appears stated age, morbidly obese, no distress HEENT: atraumatic, pupils reacting to light Neck: trachea midline Respiratory: decreased breath sounds Heart: S1S2, regular, no murmur Abdomen: soft, obese, bowel sounds heard, NT Integumentary: no obvious rash Neurologic: AO, able to move extremities Ext: R AKA, ext and dependent edema
[2021-06-25] MEDS: POTASSIUM CHLORIDE ER 10 MEQ TAB PO SCH (10:10)
[2021-06-25] MEDS: DOCUSATE SODIUM 100 MG CAP PO SCH ×2 (10:10→21:39)
[2021-06-25] MEDS: GABAPENTIN 300 MG CAP PO SCH ×2 (10:10→21:39)
[2021-06-25] MEDS: cephALEXin 500 MG CAP PO SCH ×2 (10:12→21:39)
[2021-06-25] MEDS: ASPIRIN 81 MG TAB CHEW PO SCH (10:12)
[2021-06-25] MEDS: FAMOTIDINE 20 MG TAB PO SCH ×2 (10:12→21:40)
[2021-06-25] MEDS: SENNOSIDES 8.6 MG TAB PO SCH ×2 (10:12→21:40)
[2021-06-25] MEDS: carvediloL 12.5 MG TAB PO SCH ×2 (10:13→21:39)
[2021-06-25] MEDS: ESCITALOPRAM 10 MG TAB PO SCH (11:39)
[2021-06-25] MEDS: INSULIN REGULAR, HUMAN 100 UNITS/1 ML SUB-Q SCH ×2 (12:00→17:46)
--- NOTE | 2021-06-25 12:00 | Progress Note ---
Assessment and Plan Patient is 71-year-old female with a past medical history of coronary artery disease, cardiomyopathy EF 55 to 60%, pulmonary hypertension, hypertension, asthma, right AKA presented to the ED with a complaint of progressively worsening shortness of breath x1 week Acute on chronic diastolic heart failure Severe pulmonary hypertension Asthma- Pulmonology following Coronary artery disease Cardiomyopathy Hypertension Chronic lymphedema-vascular consulted PET Perfusion Study (Rest/Stress) 06/14/2021- Negative Lexiscan . Normal rest and stress myocardial PET perfusion scan. No significant ischemia. No wall motion abnormality. Gated SPECT at rest 50%, stress 57%. Coronary flow reserve globally at 1.67 with RV dilatation noted. Echocardiogram 06/14/2021- Contrast was utilized. There is normal LV systolic function. LV wall thickness is mild to moderately increased. The estimated left ventricle ejection fraction is 55-60%. There is increased left atrial pressure and Grade II diastolic dysfunction. There is normal right ventricular size, wall dimension, and systolic function. The LA volume is moderately increased. There is no aortic valve stenosis or regurgitation. There is no mitral regurgitation. There is mild tricuspid regurgitation. There is severe pulmonary hypertension. The estimated RV systolic pressure is >60. There is no pulmonic regurgitation. There is a trace posterior pericardial effusion. No left ventricular thrombus noted with LV contrast images. Outpatient medications: Lasix 40 mg p.o. twice daily, hydralazine 50 mg p.o. 3 times daily, metolazone 2.5 mg p.o. daily, aspirin, atorvastatin, Coreg 12.5 mg p.o. twice daily, Imdur 30 mg p.o. daily, Plan: Patient having good urine output and improvement in respiratory status. Creatinine noted to have elevation however will stop metolazone. Nephrology currently following. Discussed case with nephrology. Will defer volume management to nephrology due to increasing creatinine Strict I&O's, close monitoring of renal indicis, and repeat BMP. Continue outpatient medications Patient seen in conjunction with Dr. Ann who agrees with this plan of care - Patient Problems (1) Acute on chronic diastolic heart failure Current Visit: Yes Status: Acute (2) Severe pulmonary hypertension Current Visit: Yes Status: Acute (3) Asthma Current Visit: No Status: Chronic (4) Essential hypertension Current Visit: No Status: Chronic (5) HTN (hypertension) Current Visit: No Status: Chronic (6) History of PTCA Current Visit: No Status: Chronic (7) GUIDO (obstructive sleep apnea) Current Visit: No Status: Chronic (8) PVD (peripheral vascular disease) Current Visit: No Status: Chronic Subjective Date of service: 06/25/21 Principal diagnosis: Acute on chronic diastolic heart failure, asthma exacerbation Interval history: Patient sitting in bed in no acute distress. Patient reports still being short of breath however she reports that she is continues to feel improvement in her and still having significant urine output Sinus 60 to 70s on monitor with PACs Objective Vital Signs Temp Pulse Pulse Pulse Resp Resp Resp 06/25/21 09:22 65 16 06/25/21 08:45 06/25/21 07:45 96.4 F L 71 06/25/21 05:46 06/25/21 04:53 06/25/21 04:30 50 L 20 06/25/21 03:34 97.9 F 74 18 06/25/21 00:12 55 L 17 06/24/21 23:10 97.9 F 62 16 06/24/21 22:10 77 06/24/21 21:32 75 18 06/24/21 19:29 98.3 F 61 18 06/24/21 16:03 98.3 F 68 20 06/24/21 14:00 61 06/24/21 13:22 61 BP Pulse Ox 06/25/21 09:22 98 06/25/21 08:45 98 06/25/21 07:45 142/75 97 06/25/21 05:46 144/56 06/25/21 04:53 97 06/25/21 04:30 100 06/25/21 03:34 144/56 97 06/25/21 00:12 97 06/24/21 23:10 126/60 94 06/24/21 22:10 132/58 06/24/21 21:32 96 06/24/21 19:29 132/58 94 06/24/21 16:03 119/49 98 06/24/21 14:00 06/24/21 13:22 126/61 - Physical Examination General: No Apparent Distress HEENT: Positive: Normocephaly Neck: Positive: trachea midline Cardiac: Positive: Reg Rate and Rhythm Lungs: Positive: Decreased Breath Sounds Neuro: Positive: Grossly Intact Abdomen: Positive: Soft Skin: Negative: Rash, Suspicious Lesions, Ulceration Extremities: Present: upper extr. pulses, edema - Labs and Meds Comprehensive Metabolic Panel 06/24/21 06/25/21 Range/Units 11:23 06:31 Sodium 138 135 L (137-145) mmol/L Potassium 4.1 3.7 (3.6-5.0) mmol/L Chloride 99.5 97.1 L (98-107) mmol/L Carbon Dioxide 27 27 (22-30) mmol/L BUN 34 H 45 H (7-17) mg/dL Creatinine 1.5 H 1.7 H (0.6-1.2) mg/dL Glucose 315 H 273 H (65-100) mg/dL Calcium 8.2 L 8.3 L (8.4-10.2) mg/dL - Imaging and Cardiology Echo: report reviewed - Telemetry EKG Rhythm: Sinus Rhythm - EKG Sinus rhythms and dysrhythmias: sinus rhythm Supraventricular dysrhythmia: atrial premature complexe
--- NOTE | 2021-06-25 14:03 | Progress Note ---
Assessment and Plan Patient is 71-year-old female with a past medical history of coronary artery disease, cardiomyopathy EF 55 to 60%, pulmonary hypertension, hypertension, asthma, right AKA, left leg chronic lymphadenopathy presented to the ED with a complaint of progressively worsening shortness of breath x1 week. Chest [id number], CHF. 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 We will continue IV diuresis for now. Patient stated that she had recent vascular procedure by Dr. Christiansen, will consult vascular. We will continue to follow BMP, will continue to adjust medications. Continue nebulizer breathing treatment and supplemental O2 as needed. BiPAP at bedtime. 06/24: cont iv diuresis, started on metolazone. Cr trended up, follow BMP. cont supplemental O2. pulmonary following. cont abx for possible cellulites 06/25: Creatinine cont to trend up, will stop metolazone. Nephrology consulted. Discussed case with nephrology. Will defer volume management to nephrology due to increasing creatinine. cont Strict I&O's, close monitoring of renal indicis, and repeat BMP. Continue outpatient medications, follow BMP. Subjective Date of service: 06/25/21 Principal diagnosis: Acute on chronic diastolic heart failure, asthma exacerbation Interval history: Patient seen and examined. Medical records and medication list reviewed. No acute event overnight noted by the RN. Patient denies any chest pain but complains of difficulty breathing even on resting. still has significant lower extremity edema, patient is tolerating diet. Cr cont to trend up, Discussed plan of care at bedside with patient. Objective - Exam Narrative Exam: GENERAL: well-developed and morbidly obese elderly female lying on bed appeared to be in no discomfort. HEENT: Normocephalic. Atraumatic. No conjunctival congestion or icterus. Patient has moist mucous membranes. NECK: Supple. Trachea midline. CHEST/LUNGS: Clear to auscultated bilaterally, breathing nonlabored. No wheezes crackles or rhonchi. HEART/CARDIOVASCULAR: Regular in rate and rhythm. S1 and S2 positive. ABDOMEN: Abdomen is soft, nontender, obese. Patient has normal bowel sounds. SKIN: There is no rash. Warm and dry. NEURO: No focal motor deficit. Follows command. MUSCULOSKELETAL: No joint effusion or tenderness. EXTRIMITY: Positive edema on left lower extremity, no cyanosis or clubbing. Status post right AKA PSYCH: Cooperative. - Constitutional Vitals: Vital Signs - 12hr 06/25/21 06/25/21 06/25/21 03:34 04:30 04:53 Temperature 97.9 F Pulse Rate 74 50 L Pulse Rate [ Anterior Bilateral Throughout] Respiratory 18 20 Rate Respiratory Rate [Anterior Bilateral Throughout] Blood Pressure 144/56 O2 Sat by Pulse 97 100 97 Oximetry 06/25/21 06/25/21 06/25/21 05:46 07:45 08:45 Temperature 96.4 F L Pulse Rate 71 Pulse Rate [ Anterior Bilateral Throughout] Respiratory Rate Respiratory Rate [Anterior Bilateral Throughout] Blood Pressure 144/56 142/75 O2 Sat by Pulse 97 98 Oximetry 06/25/21 06/25/21 09:22 11:54 Temperature 96.8 F L Pulse Rate 63 Pulse Rate [ 65 Anterior Bilateral Throughout] Respiratory 20 Rate Respiratory 16 Rate [Anterior Bilateral Throughout] Blood Pressure 145/65 O2 Sat by Pulse 98 95 Oximetry - Labs CBC & Chem 7: 06/23/21 04:43 06/25/21 06:31 Labs: Abnormal lab results 06/24/21 06/24/21 06/25/21 Range/Units 16:46 20:02 06:31 Sodium 135 L (137-145) mmol/L Chloride 97.1 L (98-107) mmol/L BUN 45 H (7-17) mg/dL Creatinine 1.7 H (0.6-1.2) mg/dL Glucose 273 H (65-100) mg/dL POC Glucose 239 H 332 H (70-105) mg/dL Calcium 8.3 L (8.4-10.2) mg/dL 06/25/21 06/25/21 Range/Units 07:16 11:22 Sodium (137-145) mmol/L Chloride (98-107) mmol/L BUN (7-17) mg/dL Creatinine (0.6-1.2) mg/dL Glucose (65-100) mg/dL POC Glucose 239 H 242 H (70-105) mg/dL Calcium (8.4-10.2) mg/dL HEART Score - HEART Score Troponin: Troponin T < 0.010 ng/mL (0.00-0.029) 06/22/21 06:51
--- NOTE | 2021-06-25 18:30 | Electrocardiograph Report ---
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
--- NOTE | 2021-06-25 18:36 | Electrocardiograph Report ---
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 BIGEMINNata Repol abnrm suggests ischemia, anterolateral Compared to ECG 06/22/2021 06:34:30 Atrial premature complex(es) now present P WAVES ARE DIFFICULT TO APPRECIATE Atrial fibrillation no longer present Prolonged QT interval no longer present Possible ischemia still present Electronically Signed On 06-25-2021 18:36:18 EDT by Balta Harrell
[2021-06-25 21:13] LABS: Creatinine,Urine 20.8 mg/dL (0.1-20.0); Protein/Creatinine Ratio,Urine 3.22
[2021-06-25 21:17] LABS: Bacteria,Urine 1+ /HPF (Negative); Bilirubin,Urine NEG (Negative); Blood,Urine SM (Negative); Color,Urine Yellow (Yellow); Mucus,Urine 3+ /HPF; Protein,Urine <15 mg/dL mg/dL (Negative); RBC,Urine < 1.0 /HPF (0.0-6.0); Urobilinogen,Urine < 2.0 mg/dL (<2.0); WBC,Urine < 1.0 /HPF (0.0-6.0)
[2021-06-25] MEDS: INSULIN GLARGINE 100 UNITS/ML SUB-Q SCH (21:41)
[2021-06-25] MEDS ORDERED: ZOLPIDEM 5 MG TAB PO PRN (22:00)
[2021-06-26] MEDS: HEPARIN 5,000 UNIT/1 ML VIAL SUB-Q SCH ×3 (05:35→22:07)
[2021-06-26] MEDS: hydrALAZINE 25 MG TAB PO SCH ×3 (05:36→22:05)
[2021-06-26] MEDS: FUROSEMIDE 40 MG/4 ML INJ IV SCH (05:36)
[2021-06-26] MEDS: methylPREDNISolone Sod Succinate 40 MG/1 ML INJ IV SCH (05:36)
[2021-06-26 06:51] LABS: Calcium 8.5 mg/dL (8.4-10.2)
[2021-06-26] MEDS: BUDESONIDE 0.5 MG/2 ML NEBU IH SCH ×2 (07:25→20:56)
[2021-06-26] MEDS: ARFORMOTEROL 15 MCG/2 ML NEBU IH SCH ×2 (07:25→20:56)
[2021-06-26] MEDS: metOLazone 2.5 MG TAB PO SCH (07:34)
[2021-06-26] MEDS: POTASSIUM CHLORIDE ER 10 MEQ TAB PO SCH (09:51)
[2021-06-26] MEDS: carvediloL 12.5 MG TAB PO SCH ×2 (09:51→22:07)
[2021-06-26] MEDS: GABAPENTIN 300 MG CAP PO SCH ×2 (09:51→22:06)
[2021-06-26] MEDS: DOCUSATE SODIUM 100 MG CAP PO SCH ×2 (09:51→22:05)
[2021-06-26] MEDS: ESCITALOPRAM 10 MG TAB PO SCH (09:51)
[2021-06-26] MEDS: cephALEXin 500 MG CAP PO SCH ×2 (09:51→22:07)
[2021-06-26] MEDS: INSULIN REGULAR, HUMAN 100 UNITS/1 ML SUB-Q SCH ×3 (09:51→17:24)
[2021-06-26] MEDS: ASPIRIN 81 MG TAB CHEW PO SCH (09:51)
[2021-06-26] MEDS: SENNOSIDES 8.6 MG TAB PO SCH ×2 (09:51→22:05)
[2021-06-26] MEDS: FAMOTIDINE 20 MG TAB PO SCH ×2 (09:51→22:06)
[2021-06-26] MEDS: INSULIN LISPRO 100 UNIT/ML SUB-Q SCH ×4 (09:52→22:08)
--- NOTE | 2021-06-26 10:41 | Progress Note ---
Assessment and Plan Patient is 71-year-old female with a past medical history of coronary artery disease, cardiomyopathy EF 55 to 60%, pulmonary hypertension, hypertension, asthma, right AKA presented to the ED with a complaint of progressively worsening shortness of breath x1 week Acute on chronic diastolic heart failure Severe pulmonary hypertension Asthma- Pulmonology following Coronary artery disease Cardiomyopathy Hypertension Chronic lymphedema-vascular consulted acutre respiratory failure PET Perfusion Study (Rest/Stress) 06/14/2021- Negative Lexiscan . Normal rest and stress myocardial PET perfusion scan. No significant ischemia. No wall motion abnormality. Gated SPECT at rest 50%, stress 57%. Coronary flow reserve globally at 1.67 with RV dilatation noted. Echocardiogram 06/14/2021- Contrast was utilized. There is normal LV systolic function. LV wall thickness is mild to moderately increased. The estimated left ventricle ejection fraction is 55-60%. There is increased left atrial pressure and Grade II diastolic dysfunction. There is normal right ventricular size, wall dimension, and systolic function. The LA volume is moderately increased. There is no aortic valve stenosis or regurgitation. There is no mitral regurgitation. There is mild tricuspid regurgitation. There is severe pulmonary hypertension. The estimated RV systolic pressure is >60. There is no pulmonic regurgitation. There is a trace posterior pericardial effusion. No left ventricular thrombus noted with LV contrast images. Outpatient medications: Lasix 40 mg p.o. twice daily, hydralazine 50 mg p.o. 3 times daily, metolazone 2.5 mg p.o. daily, aspirin, atorvastatin, Coreg 12.5 mg p.o. twice daily, Imdur 30 mg p.o. daily, Plan: change to po lasix and try low dose fluids and check bmp in am , discuss with pt and daughter and anticpated discharge in am, go home on lasix 40mg once a day - Patient Problems (1) Acute respiratory failure with hypoxia Current Visit: Yes Status: Acute (2) Acute on chronic diastolic heart failure Current Visit: Yes Status: Acute (3) CHF exacerbation Current Visit: Yes Status: Acute (4) Renal insufficiency Current Visit: Yes Status: Acute (5) Severe pulmonary hypertension Current Visit: Yes Status: Acute (6) Coronary atherosclerosis Current Visit: No Status: Chronic (7) PVD (peripheral vascular disease) Current Visit: No Status: Chronic (8) Type II diabetes mellitus Current Visit: No Status: Chronic Subjective Date of service: 06/26/21 Principal diagnosis: Acute on chronic diastolic heart failure, asthma exacerbation Interval history: pt sob has improved Objective Vital Signs Temp Pulse Pulse Pulse Resp Resp Resp 06/26/21 10:00 62 06/26/21 07:55 97.9 F 60 16 06/26/21 07:39 06/26/21 07:38 77 77 14 16 06/26/21 07:35 77 77 14 16 06/26/21 05:36 66 06/26/21 04:41 99.0 F 66 20 06/26/21 00:00 54 L 16 06/25/21 23:06 06/25/21 22:59 99.1 F 98 H 20 06/25/21 21:39 64 06/25/21 21:15 06/25/21 21:14 64 16 06/25/21 20:10 73 06/25/21 19:36 98.0 F 64 16 06/25/21 15:13 97.0 F L 69 06/25/21 11:54 96.8 F L 63 20 BP BP Pulse Ox 06/26/21 10:00 97 06/26/21 07:55 136/56 98 06/26/21 07:39 97 06/26/21 07:38 06/26/21 07:35 97 06/26/21 05:36 128/81 06/26/21 04:41 130/72 99 06/26/21 00:00 100 06/25/21 23:06 98 06/25/21 22:59 128/81 95 06/25/21 21:39 133/56 06/25/21 21:15 97 06/25/21 21:14 06/25/21 20:10 06/25/21 19:36 133/56 93 06/25/21 15:13 132/101 97 06/25/21 11:54 145/65 95 - Physical Examination General: No Apparent Distress HEENT: Positive: Normocephaly Neck: Positive: trachea midline Cardiac: Positive: Reg Rate and Rhythm Lungs: Positive: clear to auscultation Neuro: Positive: Grossly Intact Abdomen: Positive: Soft Skin: Negative: Rash, Suspicious Lesions, Ulceration Extremities: Present: upper extr. pulses, edema (mild) - Labs and Meds Comprehensive Metabolic Panel 03/19/22 Range/Units 05:42 Sodium 137 (137-145) mmol/L Potassium 4.0 (3.6-5.0) mmol/L Chloride 97.1 L (98-107) mmol/L Carbon Dioxide 25 (22-30) mmol/L BUN 55 H (7-17) mg/dL Creatinine 1.6 H (0.6-1.2) mg/dL Glucose 271 H (65-100) mg/dL Calcium 8.5 (8.4-10.2) mg/dL - Imaging and Cardiology Echo: report reviewed - Telemetry EKG Rhythm: Sinus Rhythm - EKG Sinus rhythms and dysrhythmias: sinus rhythm
[2021-06-26] MEDS ORDERED: SODIUM CHLORIDE 0.9% 1000 ML 1,000 ML IV SCH (11:00)
--- NOTE | 2021-06-26 11:05 | Progress Note ---
Assessment and Plan 1. Acute kidney injury: Vasomotor LEXIE in the setting of hypotension / CHF. Urine studies ordered. Baseline renal function is unknown. Monitor renal function. Creatinine level is about the same. Avoid nephrotoxic agents. Meds dosage based on GFR. 2. FEN: Volume overload, diuretics, monitor. Monitor lytes and volume status. 3. Acute on chronic HFpEF: Cardiomyopathy. CHF pathway. Lasix. Followed by Cards. 4. Severe pulmonary hypertension. 5. Coronary artery disease 6. Hypertension: BP controlled. 7. Asthma. Subjective: Patient was seen and examined at the bedside. Doing ok. Examination: General appearance: well-developed, appears stated age, morbidly obese, no distress HEENT: atraumatic, pupils reacting to light Neck: trachea midline Respiratory: decreased breath sounds Heart: S1S2, regular, no murmur Abdomen: soft, obese, bowel sounds heard, NT Integumentary: no obvious rash Neurologic: AO, able to move extremities Ext: R AKA, ext and dependent edema Subjective Date of service: 06/26/21 Principal diagnosis: Acute on chronic diastolic heart failure, asthma e xacerbation Objective - Vital Signs Vital signs: Vital Signs - 12hr 06/25/21 06/26/21 06/26/21 23:06 00:00 04:41 Temperature 99.0 F Pulse Rate 54 L 66 Pulse Rate [ Anterior Bilateral Throughout] Pulse Rate [ Throughout] Respiratory 16 20 Rate Respiratory Rate [Anterior Bilateral Throughout] Respiratory Rate [ Throughout] Blood Pressure Blood Pressure 130/72 [Right] O2 Sat by Pulse 98 100 99 Oximetry 06/26/21 06/26/21 06/26/21 05:36 07:35 07:38 Temperature Pulse Rate 66 Pulse Rate [ 77 77 Anterior Bilateral Throughout] Pulse Rate [ 77 77 Throughout] Respiratory Rate Respiratory 14 14 Rate [Anterior Bilateral Throughout] Respiratory 16 16 Rate [ Throughout] Blood Pressure 128/81 Blood Pressure [Right] O2 Sat by Pulse 97 Oximetry 06/26/21 06/26/21 06/26/21 07:39 07:55 10:00 Temperature 97.9 F Pulse Rate 60 62 Pulse Rate [ Anterior Bilateral Throughout] Pulse Rate [ Throughout] Respiratory 16 Rate Respiratory Rate [Anterior Bilateral Throughout] Respiratory Rate [ Throughout] Blood Pressure 136/56 Blood Pressure [Right] O2 Sat by Pulse 97 98 97 Oximetry - Lab 06/23/21 04:43 06/26/21 05:42 Most recent lab results ABG pH 7.326 pH Units (7.350-7.450) L 06/24/21 08:50 ABG pCO2 53.8 mm Hg 06/24/21 08:50 ABG pO2 69.6 mm Hg (80.0-90.0) L 06/24/21 08:50 ABG HCO3 27.5 mmol/L (20.0-26.0) H 06/24/21 08:50 ABG O2 Saturation 94.7 % (95.0-99.0) L 06/24/21 08:50 Calcium 8.5 mg/dL (8.4-10.2) 06/26/21 05:42 Magnesium 2.40 mg/dL (1.7-2.3) H 06/26/21 05:42 Urine Creatinine 20.8 mg/dL (0.1-20.0) H 06/25/21 14:00 Urine Sodium 104 mmol/L 06/25/21 14:00 Urine Total Protein 67 mg/dL (5-11.8) H 06/25/21 14:00 Medications & Allergies - Medications Allergies/Adverse Reactions: Allergies ROSALVA Inhibitors Adverse Reaction (Intermediate, Verified 06/23/21 08:04) Angioedema patient is unaware of this allergy. informed it was on her profile added by MD Godwin. codeine Adverse Reaction (Verified 06/23/21 08:04) Nausea Home Medications: Home Medications Medication Instructions Recorded Confirmed Last Taken Type Escitalopram Oxalate [Lexapro] 10 mg PO QDAY 08/01/13 06/23/21 10/04/17 09:00 History Gabapentin [Neurontin] 600 mg PO BID 08/01/13 06/23/21 10/04/17 21:00 History Isosorbide Mononitrate [Isosorbide 30 mg PO QDAY 08/01/13 06/23/21 10/04/17 21:00 History Mononitrate ER] Zolpidem [Ambien] 5 mg PO QHS PRN 08/01/13 06/23/21 10/04/17 21:00 History metFORMIN [Glucophage] 500 mg PO BID 08/01/13 06/23/21 10/04/17 21:00 History AtorvaSTATin [Lipitor] 40 mg PO QHS 08/30/17 06/23/2118 17:00 History Omeprazole 40 mg PO DAILY 08/30/17 06/23/21 10/04/17 09:00 History Alirocumab [Praluent Pen] 1 syr SQ Q2W 06/23/21 06/23/21 Unknown History Aspirin EC [Halfprin EC] 81 mg PO QDAY 06/23/21 06/23/21 Unknown History Fluticasone/Umeclidin/Vilanter 1 puff INHALATION DAILY 06/23/21 06/23/21 Unknown History [Tretrell Ellipta 100-62.5-25(Nf)] Furosemide [Lasix] 40 mg PO BID 06/23/21 06/23/21 Unknown History Hydralazine HCl 50 mg PO TID 06/23/21 06/23/21 Unknown History Insulin Aspart [Novolog Flexpen] 0 unit SQ AC 06/23/21 06/23/21 Unknown History Insulin Detemir [Levemir Flextouch] 25 unit SQ QHS 06/23/21 06/23/21 Unknown History Ipratropium/Albuterol Sulfate 1 spray IH QDAY 06/23/21 06/23/21 Unknown History [Combivent Respimat] Metoclopramide [Reglan] 10 mg PO BID 06/23/21 06/23/21 Unknown History Active Medications: Generic Name Dose Route Start Last Admin Trade Name Freq PRN Reason Stop Dose Admin Acetaminophen 650 mg 06/22/21 10:00 06/24/21 09:05 Acetaminophen 325 Mg Tab PO 650 mg Q4H PRN Administration Pain MILD(1-3)/Fever >100.5/GONZALEZ Albuterol 2.5 mg 06/22/21 11:00 06/22/21 16:30 Albuterol 2.5 Mg/3 Ml Nebu IH 2.5 mg Q3HRT PRN Administration Shortness Of Breath Arformoterol Tartrate 15 mcg 06/22/21 11:00 06/26/21 07:25 Arformoterol 15 Mcg/2 Ml Nebu IH 15 mcg Q12HRT BRIANDA Administration Aspirin 81 mg 06/23/21 10:00 06/26/21 09:51 Aspirin 81 Mg Tab Chew PO 81 mg QDAY BRIANDA Administration Atorvastatin Calcium 40 mg 06/22/21 22:00 06/25/21 21:39 Atorvastatin 40 Mg Tab PO 40 mg QHS BRIANDA Administration Budesonide 0.5 mg 06/22/21 11:00 06/26/21 07:25 Budesonide 0.5 Mg/2 Ml Nebu IH 0.5 mg Q12HRT BRIANDA Administration Carvedilol 12.5 mg 06/22/21 11:00 06/26/21 09:51 Carvedilol 12.5 Mg Tab PO 12.5 mg BID BRIANDA Administration Cephalexin 500 mg 06/22/21 12:00 06/26/21 09:51 Cephalexin 500 Mg Cap PO 06/26/21 22:01 500 mg Q12HR BRIANDA Administration Protocol Dextrose 0 ml 06/22/21 10:37 Dextrose 10% *Hypoglycemia IV PRN PRN Hypoglycemia Docusate Sodium 100 mg 06/22/21 11:00 06/26/21 09:51 Docusate Sodium 100 Mg Cap PO 100 mg BID BRIANDA Administration Escitalopram Oxalate 10 mg 06/22/21 12:00 06/26/21 09:51 Escitalopram 10 Mg Tab PO 10 mg DAILY BRIANDA Administration Famotidine 20 mg 06/23/21 10:00 06/26/21 09:51 Famotidine 20 Mg Tab PO 20 mg BID BRIANDA Administration Furosemide 40 mg 06/27/21 10:00 Furosemide 40 Mg Tab PO QDAY BRIANDA Gabapentin 600 mg 06/22/21 11:00 06/26/21 09:51 Gabapentin 300 Mg Cap PO 600 mg BID BRIANDA Administration Heparin Sodium (Porcine) 5,000 unit 06/22/21 14:00 06/26/21 05:35 Heparin 5,000 Unit/1 Ml Vial SUB-Q 5,000 unit Q8HR BRIANDA Administration Hydralazine HCl 50 mg 06/22/21 14:00 06/26/21 05:36 Hydralazine 25 Mg Tab PO 50 mg Q8HR BRIANDA Administration Sodium Chloride 1,000 mls @ 75 mls/hr 06/26/21 10:45 Nacl 0.9% 1000 Ml IV 06/26/21 20:44 DIRECT BRIANDA Insulin Glargine 30 units 06/22/21 22:00 06/25/21 21:41 Insulin Glargine 100 Units/Ml SUB-Q 30 units QHS BRIANDA Administration Insulin Human Lispro 0 unit 06/22/21 11:30 06/26/21 09:52 Insulin Lispro 100 Unit/Ml SUB-Q 4 unit ACHS [facility] Administration Protocol Insulin Human Regular 10 units 06/25/21 11:30 06/26/21 09:51 Insulin Regular, Human 100 Units/1 Ml SUB-Q 10 units AC [facility] Administration Isosorbide Mononitrate 30 mg 06/22/21 11:00 06/26/21 09:51 Isosorbide Mononitrate Er 30 Mg Tab PO 30 mg QDAY [facility] Administration Methylprednisolone Sodium Succinate 40 mg 06/22/21 14:00 06/26/21 05:36 Methylprednisolone Sod Succinate 40 Mg/1 Ml Inj IV 06/26/21 13:59 40 mg Q8HR [facility] Administration Methylprednisolone Sodium Succinate 40 mg 06/27/21 10:00 Methylprednisolone Sod Succinate 40 Mg/1 Ml Inj IV 06/27/21 22:01 Q12HR [facility] Methylprednisolone Sodium Succinate 40 mg 06/28/21 10:00 Methylprednisolone Sod Succinate 40 Mg/1 Ml Inj IV 06/28/21 10:01 Q24HR [facility] Metoclopramide HCl 10 mg 06/22/21 11:00 Metoclopramide 10 Mg/2 Ml Inj IV Q6H PRN Nausea And Vomiting Miscellaneous Medication 1 syr 07/05/21 11:00 Alirocumab [Praluent Pen] SUB-Q Q2W [facility] Morphine Sulfate 2 mg 06/22/21 11:00 Morphine 2 Mg/1 Ml Inj IV Q4H PRN Pain, Moderate (4-6) Naloxone HCl 0.1 mg 06/22/21 11:00 Naloxone 0.4 Mg/1 Ml Inj IV Q2MIN PRN Res Rate </= 8 or 02 SAT < 92% Nitroglycerin 0.4 mg 06/22/21 11:00 Nitroglycerin 0.4 Mg Tab Subl SL .Q5MIN PRN Chest Pain Ondansetron HCl 4 mg 06/22/21 11:00 Ondansetron 4 Mg/2 Ml Inj IV Q4H PRN Nausea And Vomiting Potassium Chloride 10 meq 06/22/21 12:00 06/26/21 09:51 Potassium Chloride Er 10 Meq Tab PO 10 meq QDAY [facility] Administration Senna 8.6 mg 06/22/21 11:00 06/26/21 09:51 Sennosides 8.6 Mg Tab PO 8.6 mg Q12HR [facility] Administration Sodium Chloride 10 ml 06/22/21 10:00 06/26/21 09:55 Sodium Chloride 0.9% 10 Ml Flush Syringe IV 10 ml BID BRIANDA Administration Sodium Chloride 10 ml 06/22/21 11:00 Sodium Chloride 0.9% 10 Ml Flush Syringe IV PRN PRN LINE FLUSH Zolpidem Tartrate 5 mg 06/25/21 22:00 Zolpidem 5 Mg Tab PO QHS PRN Sleep
--- NOTE | 2021-06-26 13:27 | Progress Note ---
Assessment and Plan Patient is 71-year-old female with a past medical history of coronary artery disease, cardiomyopathy EF 55 to 60%, pulmonary hypertension, hypertension, asthma, right AKA, left leg chronic lymphadenopathy presented to the ED with a complaint of progressively worsening shortness of breath x1 week. Chest [id number], CHF. 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 We will continue IV diuresis for now. Patient stated that she had recent vascular procedure by Dr. Christiansen, will consult vascular. We will continue to follow BMP, will continue to adjust medications. Continue nebulizer breathing treatment and supplemental O2 as needed. BiPAP at bedtime. 06/24: cont iv diuresis, started on metolazone. Cr trended up, follow BMP. cont supplemental O2. pulmonary following. cont abx for possible cellulites 06/25: Creatinine cont to trend up, will stop metolazone. Nephrology consulted. Discussed case with nephrology. Will defer volume management to nephrology due to increasing creatinine. cont Strict I&O's, close monitoring of renal indicis, and repeat BMP. Continue outpatient medications, follow BMP. 06/26: Cr slightly trended down, changed lasix to po. cont to follow BMP. if clinically stable and Cr cont to improve possible d/c in the am Subjective Date of service: 06/26/21 Principal diagnosis: Acute on chronic diastolic heart failure, asthma exacerba tion Interval history: Patient seen and examined. Medical records and medication list reviewed. No acute event overnight noted by the RN. Patient denies any chest pain, sob improved has significant lower extremity edema, patient is tolerating diet. Cr slightly trended down, Discussed plan of care at bedside with patient. Objective - Exam Narrative Exam: GENERAL: well-developed and morbidly obese elderly female lying on bed appeared to be in no discomfort. HEENT: Normocephalic. Atraumatic. No conjunctival congestion or icterus. Patient has moist mucous membranes. NECK: Supple. Trachea midline. CHEST/LUNGS: Clear to auscultated bilaterally, breathing nonlabored. No wheezes crackles or rhonchi. HEART/CARDIOVASCULAR: Regular in rate and rhythm. S1 and S2 positive. ABDOMEN: Abdomen is soft, nontender, obese. Patient has normal bowel sounds. SKIN: There is no rash. Warm and dry. NEURO: No focal motor deficit. Follows command. MUSCULOSKELETAL: No joint effusion or tenderness. EXTRIMITY: Positive edema on left lower extremity, no cyanosis or clubbing. Status post right AKA PSYCH: Cooperative. - Constitutional Vitals: Vital Signs - 12hr 06/26/21 06/26/21 06/26/21 04:41 05:36 07:35 Temperature 99.0 F Pulse Rate 66 66 Pulse Rate [ 77 Anterior Bilateral Throughout] Pulse Rate [ 77 Throughout] Respiratory 20 Rate Respiratory 14 Rate [Anterior Bilateral Throughout] Respiratory 16 Rate [ Throughout] Blood Pressure 128/81 Blood Pressure 130/72 [Right] O2 Sat by Pulse 99 97 Oximetry 06/26/21 06/26/21 06/26/21 07:38 07:39 07:55 Temperature 97.9 F Pulse Rate 60 Pulse Rate [ 77 Anterior Bilateral Throughout] Pulse Rate [ 77 Throughout] Respiratory 16 Rate Respiratory 14 Rate [Anterior Bilateral Throughout] Respiratory 16 Rate [ Throughout] Blood Pressure 136/56 Blood Pressure [Right] O2 Sat by Pulse 97 98 Oximetry 06/26/21 10:00 Temperature Pulse Rate 62 Pulse Rate [ Anterior Bilateral Throughout] Pulse Rate [ Throughout] Respiratory Rate Respiratory Rate [Anterior Bilateral Throughout] Respiratory Rate [ Throughout] Blood Pressure Blood Pressure [Right] O2 Sat by Pulse 97 Oximetry - Labs CBC & Chem 7: 06/27/21 04:50 06/27/21 04:50 Labs: Abnormal lab results 06/25/21 06/25/21 06/25/21 Range/Units 14:00 15:46 20:22 Chloride (98-107) mmol/L BUN (7-17) mg/dL Creatinine (0.6-1.2) mg/dL Glucose (65-100) mg/dL POC Glucose 279 H 279 H (70-105) mg/dL Magnesium (1.7-2.3) mg/dL Urine Creatinine 20.8 H (0.1-20.0) mg/dL Urine Total Protein 67 H (5-11.8) mg/dL 06/26/21 06/26/21 Range/Units 05:42 07:51 Chloride 97.1 L (98-107) mmol/L BUN 55 H (7-17) mg/dL Creatinine 1.6 H (0.6-1.2) mg/dL Glucose 271 H (65-100) mg/dL POC Glucose 264 H (70-105) mg/dL Magnesium 2.40 H (1.7-2.3) mg/dL Urine Creatinine (0.1-20.0) mg/dL Urine Total Protein (5-11.8) mg/dL HEART Score - HEART Score Troponin: Troponin T < 0.010 ng/mL (0.00-0.029) 06/22/21 06:51
--- NOTE | 2021-06-26 21:31 | Progress Note ---
Subjective Date of service: 06/26/21 Principal diagnosis: Acute on chronic diastolic heart failure, asthma exacerbation Objective Vital Signs - 12hr 06/26/21 06/26/21 06/26/21 10:00 15:26 20:09 Temperature 97.9 F 97.1 F L Pulse Rate 62 90 77 Pulse Rate [ Anterior Bilateral Throughout] Respiratory 18 20 Rate Respiratory Rate [Anterior Bilateral Throughout] Blood Pressure 121/60 120/71 O2 Sat by Pulse 97 97 100 Oximetry 06/26/21 06/26/21 20:57 21:00 Temperature Pulse Rate Pulse Rate [ 71 Anterior Bilateral Throughout] Respiratory Rate Respiratory 18 Rate [Anterior Bilateral Throughout] Blood Pressure O2 Sat by Pulse 98 Oximetry Constitutional: alert, other (morbidly obese, mild distress) Eyes: non-icteric ENT: oropharynx moist Neck: supple, other (large in circumference) Effort: normal Ascultation: Bilateral: wheezes (mild) Cardiovascular: regular rate and rhythm Gastrointestinal: normoactive bowel sounds, soft, non-distended, other (obese) Integumentary: normal Neurologic: normal mental status, non-focal exam CBC and BMP: 06/23/21 04:43 06/26/21 05:42 ABG, PT/INR, D-dimer: ABG ABG pH 7.326 pH Units (7.350-7.450) L 06/24/21 08:50 ABG pCO2 53.8 mm Hg 06/24/21 08:50 ABG pO2 69.6 mm Hg (80.0-90.0) L 06/24/21 08:50 ABG O2 Saturation 94.7 % (95.0-99.0) L 06/24/21 08:50 PT/INR, D-dimer PT 15.9 Sec. (12.2-14.9) H 06/22/21 06:51 INR 1.14 (0.87-1.13) H 06/22/21 06:51 Abnormal lab findings: Abnormal Labs 06/22/21 06/22/21 06/22/21 06:51 06:51 06:52 MCH 26 L RDW 16.2 H Plt Count 114 L Lymph % (Auto) 12.4 L [place] % (Auto) 12.4 H Lymph # (Auto) 0.6 L Seg Neutrophils % 71.0 H PT 15.9 H INR 1.14 H ABG pH ABG pO2 ABG HCO3 ABG O2 Saturation ABG Hemoglobin Oxyhemoglobin Sodium Chloride BUN Creatinine Glucose 138 H POC Glucose Hemoglobin A1c Calcium Magnesium NT-Pro-B Natriuret Pep Albumin 3.3 L Urine Creatinine Urine Total Protein 06/22/21 06/22/21 06/22/21 06:52 06:52 16:03 MCH RDW Plt Count Lymph % (Auto) [place] % (Auto) Lymph # (Auto) Seg Neutrophils % PT INR ABG pH ABG pO2 ABG HCO3 ABG O2 Saturation ABG Hemoglobin Oxyhemoglobin Sodium Chloride BUN Creatinine Glucose POC Glucose 156 H Hemoglobin A1c 6.6 H Calcium Magnesium NT-Pro-B Natriuret Pep 9614 H Albumin Urine Creatinine Urine Total Protein 06/22/21 06/23/21 06/23/21 21:14 04:43 04:43 MCH 26 L RDW 16.2 H Plt Count Lymph % (Auto) 8.1 L [place] % (Auto) Lymph # (Auto) 0.4 L Seg Neutrophils % 89.1 H PT INR ABG pH ABG pO2 ABG HCO3 ABG O2 Saturation ABG Hemoglobin Oxyhemoglobin Sodium Chloride BUN 22 H Creatinine 1.4 H Glucose 295 H POC Glucose 290 H Hemoglobin A1c Calcium 8.0 L Magnesium NT-Pro-B Natriuret Pep Albumin Urine Creatinine Urine Total Protein 06/23/21 06/23/21 06/23/21 07:48 10:15 11:23 MCH RDW Plt Count Lymph % (Auto) [place] % (Auto) Lymph # (Auto) Seg Neutrophils % PT INR ABG pH 7.327 L ABG pO2 61.1 L ABG HCO3 26.4 H ABG O2 Saturation 90.2 L ABG Hemoglobin 11.7 L Oxyhemoglobin 88.3 L Sodium Chloride BUN Creatinine Glucose POC Glucose 229 H 229 H Hemoglobin A1c Calcium Magnesium NT-Pro-B Natriuret Pep Albumin Urine Creatinine Urine Total Protein 06/23/21 06/23/21 06/24/21 15:43 20:35 04:21 MCH RDW Plt Count Lymph % (Auto) [place] % (Auto) Lymph # (Auto) Seg Neutrophils % PT INR ABG pH ABG pO2 ABG HCO3 ABG O2 Saturation ABG Hemoglobin Oxyhemoglobin Sodium Chloride BUN 33 H Creatinine 1.5 H Glucose 287 H POC Glucose 247 H 291 H Hemoglobin A1c Calcium 8.2 L Magnesium NT-Pro-B Natriuret Pep Albumin Urine Creatinine Urine Total Protein 06/24/21 06/24/21 06/24/21 07:21 08:50 11:23 MCH RDW Plt Count Lymph % (Auto) [place] % (Auto) Lymph # (Auto) Seg Neutrophils % PT INR ABG pH 7.326 L ABG pO2 69.6 L ABG HCO3 27.5 H ABG O2 Saturation 94.7 L ABG Hemoglobin 11.3 L Oxyhemoglobin 92.8 L Sodium Chloride BUN 34 H Creatinine 1.5 H Glucose 315 H POC Glucose 213 H Hemoglobin A1c Calcium 8.2 L Magnesium NT-Pro-B Natriuret Pep Albumin Urine Creatinine Urine Total Protein 06/24/21 06/24/21 06/24/21 11:37 16:46 20:02 MCH RDW Plt Count Lymph % (Auto) [place] % (Auto) Lymph # (Auto) Seg Neutrophils % PT INR ABG pH ABG pO2 ABG HCO3 ABG O2 Saturation ABG Hemoglobin Oxyhemoglobin Sodium Chloride BUN Creatinine Glucose POC Glucose 269 H 239 H 332 H Hemoglobin A1c Calcium Magnesium NT-Pro-B Natriuret Pep Albumin Urine Creatinine Urine Total Protein 06/25/21 06/25/21 06/25/21 06:31 07:16 11:22 MCH RDW Plt Count Lymph % (Auto) [place] % (Auto) Lymph # (Auto) Seg Neutrophils % PT INR ABG pH ABG pO2 ABG HCO3 ABG O2 Saturation ABG Hemoglobin Oxyhemoglobin Sodium 135 L Chloride 97.1 L BUN 45 H Creatinine 1.7 H Glucose 273 H POC Glucose 239 H 242 H Hemoglobin A1c Calcium 8.3 L Magnesium NT-Pro-B Natriuret Pep Albumin Urine Creatinine Urine Total Protein 06/25/21 06/25/21 06/25/21 14:00 15:46 20:22 MCH RDW Plt Count Lymph % (Auto) [place] % (Auto) Lymph # (Auto) Seg Neutrophils % PT INR ABG pH ABG pO2 ABG HCO3 ABG O2 Saturation ABG Hemoglobin Oxyhemoglobin Sodium Chloride BUN Creatinine Glucose POC Glucose 279 H 279 H Hemoglobin A1c Calcium Magnesium NT-Pro-B Natriuret Pep Albumin Urine Creatinine 20.8 H Urine Total Protein 67 H 06/26/21 06/26/21 06/26/21 05:42 07:51 12:00 MCH RDW Plt Count Lymph % (Auto) [place] % (Auto) Lymph # (Auto) Seg Neutrophils % PT INR ABG pH ABG pO2 ABG HCO3 ABG O2 Saturation ABG Hemoglobin Oxyhemoglobin Sodium Chloride 97.1 L BUN 55 H Creatinine 1.6 H Glucose 271 H POC Glucose 264 H 274 H Hemoglobin A1c Calcium Magnesium 2.40 H NT-Pro-B Natriuret Pep Albumin Urine Creatinine Urine Total Protein 06/26/21 15:24 MCH RDW Plt Count Lymph % (Auto) [place] % (Auto) Lymph # (Auto) Seg Neutrophils % PT INR ABG pH ABG pO2 ABG HCO3 ABG O2 Saturation ABG Hemoglobin Oxyhemoglobin Sodium Chloride BUN Creatinine Glucose POC Glucose 283 H Hemoglobin A1c Calcium Magnesium NT-Pro-B Natriuret Pep Albumin Urine Creatinine Urine Total Protein
[2021-06-26] MEDS: INSULIN GLARGINE 100 UNITS/ML SUB-Q SCH (22:08)
[2021-06-27] MEDS: hydrALAZINE 25 MG TAB PO SCH ×3 (05:06→21:53)
[2021-06-27] MEDS: HEPARIN 5,000 UNIT/1 ML VIAL SUB-Q SCH ×3 (05:06→21:56)
[2021-06-27 05:38] LABS: Basophils % (Auto) 0.1 % (0.0-1.8); Eosinophils % (Auto) 0.6 % (0.0-4.3); Hematocrit 37.9 % (30.3-42.9); Hemoglobin 11.7 gm/dl (10.1-14.3); Lymphocytes # (Auto) 0.7 K/mm3 (1.2-5.4); Lymphocytes % (Auto) 12.7 % (13.4-35.0); Mean Corpuscular HGB Conc 31 % (30-34); Mean Corpuscular Volume 82 fl (79-97); Monocytes # (Auto) 0.9 K/mm3 (0.0-0.8); Monocytes % (Auto) 15.9 % (0.0-7.3); Platelet Count 119 K/mm3 (140-440); Red Blood Count 4.62 M/mm3 (3.65-5.03); Red Cell Distribution Width 15.9 % (13.2-15.2)
[2021-06-27 06:03] LABS: Calcium 8.1 mg/dL (8.4-10.2)
[2021-06-27] MEDS: ACETAMINOPHEN 325 MG TAB PO PRN (08:05)
[2021-06-27] MEDS: BUDESONIDE 0.5 MG/2 ML NEBU IH SCH ×2 (08:10→21:09)
[2021-06-27] MEDS: ARFORMOTEROL 15 MCG/2 ML NEBU IH SCH ×2 (08:10→21:09)
[2021-06-27] MEDS ORDERED: POTASSIUM CHLORIDE ER 20 MEQ TAB PO SCH (09:00)
[2021-06-27] MEDS ORDERED: SODIUM CHLORIDE 0.9% 500 ML 500 ML IV SCH (09:00)
[2021-06-27] MEDS: INSULIN LISPRO 100 UNIT/ML SUB-Q SCH ×4 (09:14→21:56)
[2021-06-27] MEDS: INSULIN REGULAR, HUMAN 100 UNITS/1 ML SUB-Q SCH ×3 (09:14→17:22)
[2021-06-27] MEDS ORDERED: methylPREDNISolone Sod Succinate 40 MG/1 ML INJ IV SCH (10:00)
--- NOTE | 2021-06-27 10:22 | Discharge Summary ---
Providers - Providers Date of Admission: 06/22/21 09:35 Date of discharge: 06/28/21 Attending physician: ROSA M RODRIGUEZ 06/22/21 Consult to Case Management [CONS] Routine Services Needed at Discharge: Ux Design Manager Notified:: NO 06/22/21 09:35 Consult to Physician [CONS] Routine Comment: Consulting Provider: ELISSA PANTOJA Physician Instructions: Reason For Exam: HEART FAILURE Consult to Physician [CONS] Routine Comment: Consulting Provider: LEATHA CHA Physician Instructions: Reason For Exam: asthma exacerbation with GUIDO 06/22/21 09:38 Consult to Dietitian/Nutrition [CONS] Routine Physician Instructions: Reason For Exam: Reason for Consult: Diet education 06/23/21 14:15 Consult to Physician [CONS] Routine Comment: Consulting Provider: OPAL NAPOLES Physician Instructions: Reason For Exam: chronic lymphedema 06/25/21 09:05 Consult to Physician [CONS] Routine Comment: Consulting Provider: OSVALDO SLAUGHTER Physician Instructions: Reason For Exam: LEXIE 06/25/21 12:56 Occupational Therapy Evaluate and Treat [CONS] Urgent Comment: Reason For Exam: OT to eval and treat Physical Therapy Evaluation and Treat [CONS] Urgent Comment: Reason For Exam: PT to eval and treat Primary care physician: KAILEY WOODARD Hospitalization Condition: Fair Pertinent studies: PET Perfusion Study (Rest/Stress) 06/14/2021- Negative Lexiscan . Normal rest and stress myocardial PET perfusion scan. No significant ischemia. No wall motion abnormality. Gated SPECT at rest 50%, stress 57%. Coronary flow reserve globally at 1.67 with RV dilatation noted. Echocardiogram 06/14/2021- Contrast was utilized. There is normal LV systolic function. LV wall thickness is mild to moderately increased. The estimated left ventricle ejection fraction is 55-60%. There is increased left atrial pressure and Grade II diastolic dysfunction. There is normal right ventricular size, wall dimension, and systolic function. The LA volume is moderately increased. There is no aortic valve stenosis or regurgitation. There is no mitral regurgitation. There is mild tricuspid regurgitation. There is severe pulmonary hypertension. The estimated RV systolic pressure is >60. There is no pulmonic regurgitation. There is a trace posterior pericardial effusion. No left ventricular thrombus noted with LV contrast images. Hospital course: Patient is 71-year-old female with a past medical history of coronary artery disease, cardiomyopathy EF 55 to 60%, pulmonary hypertension, hypertension, asthma, right AKA, left leg chronic lymphadenopathy presented to the ED with a complaint of progressively worsening shortness of breath x1 week. Chest [id number], CHF. No pneumothorax. Daily clinical course; 06/23/21: Pending 2D echocardiogram, cardiology following. We will continue IV diuresis for now. Patient stated that she had recent vascular procedure by Dr. Napoles, will consult vascular. We will continue to follow BMP, will continue to adjust medications. Continue nebulizer breathing treatment and supplemental O2 as needed. BiPAP at bedtime. 06/24: cont iv diuresis, started on metolazone. Cr trended up, follow BMP. cont supplemental O2. pulmonary following. cont abx for possible cellulites 06/25: Creatinine cont to trend up, will stop metolazone. Nephrology consulted. Discussed case with nephrology. Will defer volume management to nephrology due to increasing creatinine. cont Strict I&O's, close monitoring of renal indicis, and repeat BMP. Continue outpatient medications, follow BMP. 06/26: Cr slightly trended down, changed lasix to po. cont to follow BMP. if clinically stable and Cr cont to improve possible d/c in the am 06/27: BP soft, adjusted medication, planned for gentle hydration. Patient was planned for D/c home with HH with outpt followup, but family then decided for SNF placement. practice managers consulted 06/28: Patient clinically stable, off IV fluid. Patient clinically stable to be discharged to SNF. Disposition: [facility] Final Discharge Diagnosis (Prints w/discharge instructions): Acute on chronic diastolic CHF exacerbation. Acute Hypoxic Respiratory failure. -likely due to underlying CHF and asthma exacerbation. Right stump pain ?CELLULITIS -. Paraoxysmal Atrial Fibrillation. HTN. Hyperlipidemia. DM type II. ASTHMA WITH ACUTE EXACERBATION. GUIDO on CPAP. 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 S/P Hystrectomy 1997. Morbid obesity. Thrombocytopenia. Chronic left lower extremity lymphadenopathy status post recent vascular procedure. LEXIE, likely from diuresis Time spent for discharge: 34 minutes Core Measure Documentation - Palliative Care Palliative Care/ Comfort Measures: Not Applicable - Core Measures Any of the following diagnoses?: heart failure - Heart Failure Discharge Requirements ROSALVA/ARB for LVSD if EF <40%: Not Applicable Beta heraclio at discharge: Yes Exam - Physical Exam Narrative exam: GENERAL: well-developed and morbidly obese elderly female lying on bed appeared to be in no discomfort. HEENT: Normocephalic. Atraumatic. No conjunctival congestion or icterus. Patient has moist mucous membranes. NECK: Supple. Trachea midline. CHEST/LUNGS: Clear to auscultated bilaterally, breathing nonlabored. No wheezes crackles or rhonchi. HEART/CARDIOVASCULAR: Regular in rate and rhythm. S1 and S2 positive. ABDOMEN: Abdomen is soft, nontender, obese. Patient has normal bowel sounds. SKIN: There is no rash. Warm and dry. NEURO: No focal motor deficit. Follows command. MUSCULOSKELETAL: No joint effusion or tenderness. EXTRIMITY: Positive edema on left lower extremity, no cyanosis or clubbing. Status post right AKA PSYCH: Cooperative. - Constitutional Vitals: Temp Pulse Resp BP Pulse Ox 98.9 F 60 18 98/51 97 06/27/21 07:41 06/27/21 08:10 06/27/21 08:10 06/27/21 07:41 06/27/21 08:10 Plan Activity: fall precautions Diet: low fat, low salt Follow up with: ELISSA PANTOJA MD [Staff Physician] - 3-5 Days Prescriptions: Aspirin [Aspirin BABY CHEW TAB] 81 mg PO QDAY #30 tab.chew carvediloL [Coreg] 6.25 mg PO BID #60 tablet Potassium Chloride [K-Dur] 10 meq PO QDAY #30 tablet Prednisone [predniSONE 5 mg (6-Day Pack, 21 Tabs)] 5 mg PO .TAPER #1
--- NOTE | 2021-06-27 10:23 | Progress Note ---
Assessment and Plan Patient is 71-year-old female with a past medical history of coronary artery disease, cardiomyopathy EF 55 to 60%, pulmonary hypertension, hypertension, asthma, right AKA presented to the ED with a complaint of progressively worsening shortness of breath x1 week Acute on chronic diastolic heart failure Severe pulmonary hypertension Asthma- Pulmonology following Coronary artery disease Cardiomyopathy Hypertension Chronic lymphedema-vascular consulted acutre respiratory failure PET Perfusion Study (Rest/Stress) 06/14/2021- Negative Lexiscan . Normal rest and stress myocardial PET perfusion scan. No significant ischemia. No wall motion abnormality. Gated SPECT at rest 50%, stress 57%. Coronary flow reserve globally at 1.67 with RV dilatation noted. Echocardiogram 06/14/2021- Contrast was utilized. There is normal LV systolic function. LV wall thickness is mild to moderately increased. The estimated left ventricle ejection fraction is 55-60%. There is increased left atrial pressure and Grade II diastolic dysfunction. There is normal right ventricular size, wall dimension, and systolic function. The LA volume is moderately increased. There is no aortic valve stenosis or regurgitation. There is no mitral regurgitation. There is mild tricuspid regurgitation. There is severe pulmonary hypertension. The estimated RV systolic pressure is >60. There is no pulmonic regurgitation. There is a trace posterior pericardial effusion. No left ventricular thrombus noted with LV contrast images. Outpatient medications: Lasix 40 mg p.o. twice daily, hydralazine 50 mg p.o. 3 times daily, metolazone 2.5 mg p.o. daily, aspirin, atorvastatin, Coreg 12.5 mg p.o. twice daily, Imdur 30 mg p.o. daily, Plan: Patient's blood pressure was lower today gave fluid bolus today. Kidney function has improved. Decrease hydralazine 50 mg twice a day continue carvedilol. Patient be on Lasix 40 mg once a day. If patient's feelings afternoon better may be discharged and follow-up in the office in 1 to 2 weeks. - Patient Problems (1) Acute respiratory failure with hypoxia Current Visit: Yes Status: Acute (2) Acute on chronic diastolic heart failure Current Visit: Yes Status: Acute (3) CHF exacerbation Current Visit: Yes Status: Acute (4) Renal insufficiency Current Visit: Yes Status: Acute (5) Severe pulmonary hypertension Current Visit: Yes Status: Acute (6) Coronary atherosclerosis Current Visit: No Status: Chronic (7) PVD (peripheral vascular disease) Current Visit: No Status: Chronic (8) Type II diabetes mellitus Current Visit: No Status: Chronic Subjective Date of service: 06/27/21 Principal diagnosis: Acute on chronic diastolic heart failure, asthma exacerbation Interval history: headache today Objective Vital Signs Temp Pulse Pulse Pulse Resp Resp Resp 06/27/21 08:10 55 L 60 18 18 06/27/21 07:41 98.9 F 55 L 18 06/27/21 05:06 06/27/21 04:17 98.3 F 56 L 18 06/27/21 00:00 98 F 85 20 06/26/21 23:58 49 L 16 06/26/21 23:39 62 06/26/21 23:28 97.2 F L 53 L 20 06/26/21 22:00 06/26/21 21:00 06/26/21 20:57 71 18 06/26/21 20:09 97.1 F L 77 20 06/26/21 15:26 97.9 F 90 18 BP BP Pulse Ox 06/27/21 08:10 97 06/27/21 07:41 98/51 98 06/27/21 05:06 115/54 06/27/21 04:17 115/54 97 06/27/21 00:00 128/68 100 06/26/21 23:58 99 06/26/21 23:39 06/26/21 23:28 128/68 100 06/26/21 22:00 98 06/26/21 21:00 98 06/26/21 20:57 06/26/21 20:09 120/71 100 06/26/21 15:26 121/60 97 - Physical Examination General: No Apparent Distress HEENT: Positive: Normocephaly Neck: Positive: trachea midline Cardiac: Positive: Reg Rate and Rhythm Lungs: Positive: clear to auscultation Neuro: Positive: Grossly Intact Abdomen: Positive: Soft Skin: Negative: Rash, Suspicious Lesions, Ulceration Extremities: Present: upper extr. pulses, edema (mild) - Labs and Meds CBC 06/27/21 Range/Units 04:50 WBC 5.8 (4.5-11.0) K/mm3 RBC 4.62 (3.65-5.03) M/mm3 Hgb 11.7 (10.1-14.3) gm/dl Hct 37.9 (30.3-42.9) % Plt Count 119 L (140-440) K/mm3 Lymph # (Auto) 0.7 L (1.2-5.4) K/mm3 [place] # (Auto) 0.9 H (0.0-0.8) K/mm3 Eos # (Auto) 0.0 (0.0-0.4) K/mm3 Baso # (Auto) 0.0 (0.0-0.1) K/mm3 Comprehensive Metabolic Panel 06/27/21 Range/Units 04:50 Sodium 137 (137-145) mmol/L Potassium 3.5 L (3.6-5.0) mmol/L Chloride 96.0 L (98-107) mmol/L Carbon Dioxide 29 (22-30) mmol/L BUN 59 H (7-17) mg/dL Creatinine 1.4 H (0.6-1.2) mg/dL Glucose 180 H (65-100) mg/dL Calcium 8.1 L (8.4-10.2) mg/dL - Imaging and Cardiology Echo: report reviewed - EKG Sinus rhythms and dysrhythmias: sinus rhythm
[2021-06-27] MEDS: FUROSEMIDE 40 MG TAB PO SCH (10:55)
[2021-06-27] MEDS: ASPIRIN 81 MG TAB CHEW PO SCH (10:55)
[2021-06-27] MEDS: carvediloL 12.5 MG TAB PO SCH ×3 (10:55→21:58)
[2021-06-27] MEDS: ESCITALOPRAM 10 MG TAB PO SCH (10:55)
[2021-06-27] MEDS: SENNOSIDES 8.6 MG TAB PO SCH ×2 (10:55→21:55)
[2021-06-27] MEDS: GABAPENTIN 300 MG CAP PO SCH ×2 (10:55→21:54)
[2021-06-27] MEDS: FAMOTIDINE 20 MG TAB PO SCH ×2 (10:56→21:55)
[2021-06-27] MEDS: DOCUSATE SODIUM 100 MG CAP PO SCH ×2 (10:56→21:55)
[2021-06-27] MEDS: POTASSIUM CHLORIDE ER 10 MEQ TAB PO SCH (10:57)
--- NOTE | 2021-06-27 13:36 | Progress Note ---
Assessment and Plan 1. Acute kidney injury: Vasomotor LEXIE in the setting of hypotension / CHF. Urine studies ordered. Baseline renal function is unknown. Monitor renal function. Creatinine level is improving. Avoid nephrotoxic agents. Meds dosage based on GFR. 2. FEN: Volume overload, diuretics, monitor. Replete lytes. Monitor lytes and volume status. 3. Acute on chronic HFpEF: Cardiomyopathy. CHF pathway. Lasix. Followed by Cards. 4. Severe pulmonary hypertension. 5. Coronary artery disease 6. Hypertension: BP controlled. 7. Asthma. F/u in 1-2 weeks. Subjective: Patient was seen and examined at the bedside. No new complaint. Examination: General appearance: well-developed, appears stated age, morbidly obese, no distress HEENT: atraumatic, pupils reacting to light Neck: trachea midline Respiratory: decreased breath sounds Heart: S1S2, regular, no murmur Abdomen: soft, obese, bowel sounds heard, NT Integumentary: no obvious rash Neurologic: AO, able to move extremities Ext: R AKA, ext and dependent edema Subjective Date of service: 06/27/21 Principal diagnosis: Acute on chronic diastolic heart failure, asthma exacerbation Objective - Vital Signs Vital signs: Vital Signs - 12hr 06/27/21 06/27/21 06/27/21 04:17 05:06 07:41 Temperature 98.3 F 98.9 F Pulse Rate 56 L 55 L Pulse Rate [ Anterior Bilateral Throughout] Pulse Rate [ Throughout] Respiratory 18 18 Rate Respiratory Rate [Anterior Bilateral Throughout] Respiratory Rate [ Throughout] Blood Pressure 115/54 115/54 98/51 O2 Sat by Pulse 97 98 Oximetry 06/27/21 06/27/21 06/27/21 08:10 11:36 12:00 Temperature 97.9 F Pulse Rate 55 L Pulse Rate [ 55 L Anterior Bilateral Throughout] Pulse Rate [ 60 Throughout] Respiratory 18 Rate Respiratory 18 Rate [Anterior Bilateral Throughout] Respiratory 18 Rate [ Throughout] Blood Pressure 105/52 O2 Sat by Pulse 97 98 99 Oximetry 06/27/21 12:24 Temperature Pulse Rate 60 Pulse Rate [ Anterior Bilateral Throughout] Pulse Rate [ Throughout] Respiratory Rate Respiratory Rate [Anterior Bilateral Throughout] Respiratory Rate [ Throughout] Blood Pressure O2 Sat by Pulse Oximetry - Lab 06/27/21 04:50 06/27/21 04:50 Most recent lab results ABG pH 7.326 pH Units (7.350-7.450) L 06/24/21 08:50 ABG pCO2 53.8 mm Hg 06/24/21 08:50 ABG pO2 69.6 mm Hg (80.0-90.0) L 06/24/21 08:50 ABG HCO3 27.5 mmol/L (20.0-26.0) H 06/24/21 08:50 ABG O2 Saturation 94.7 % (95.0-99.0) L 06/24/21 08:50 Calcium 8.1 mg/dL (8.4-10.2) L 06/27/21 04:50 Magnesium 2.20 mg/dL (1.7-2.3) 06/27/21 04:50 Urine Creatinine 20.8 mg/dL (0.1-20.0) H 06/25/21 14:00 Urine Sodium 104 mmol/L 06/25/21 14:00 Urine Total Protein 67 mg/dL (5-11.8) H 06/25/21 14:00 Medications & Allergies - Medications Allergies/Adverse Reactions: Allergies ROSALVA Inhibitors Adverse Reaction (Intermediate, Verified 06/23/21 08:04) Angioedema patient is unaware of this allergy. informed it was on her profile added by MD Godwin. codeine Adverse Reaction (Verified 06/23/21 08:04) Nausea Home Medications: Home Medications Medication Instructions Recorded Confirmed Last Taken Type Escitalopram Oxalate [Lexapro] 10 mg PO QDAY 08/01/13 06/23/21 10/04/17 09:00 History Gabapentin [Neurontin] 600 mg PO BID 08/01/13 06/23/21 10/04/17 21:00 History Isosorbide Mononitrate [Isosorbide 30 mg PO QDAY 08/01/13 06/23/21 10/04/17 21:00 History Mononitrate ER] Zolpidem [Ambien] 5 mg PO QHS PRN 08/01/13 06/23/21 10/04/17 21:00 History metFORMIN [Glucophage] 500 mg PO BID 08/01/13 06/23/21 10/04/17 21:00 History AtorvaSTATin [Lipitor] 40 mg PO QHS 08/30/17 06/23/21 10/04/17 17:00 History Omeprazole 40 mg PO DAILY 08/30/17 06/23/21 10/04/17 09:00 History Alirocumab [Praluent Pen] 1 syr SQ Q2W 06/23/21 06/23/21 Unknown History Aspirin EC [Halfprin EC] 81 mg PO QDAY 06/23/21 06/23/21 Unknown History Fluticasone/Umeclidin/Vilanter 1 puff INHALATION DAILY 06/23/21 06/23/21 Unknown History [Trelegy Ellipta 100-62.5-25(Nf)] Insulin Aspart [Novolog Flexpen] 0 unit SQ AC 06/23/21 06/23/21 Unknown History Metoclopramide [Reglan TAB] 10 mg PO BID 06/23/21 06/23/21 Unknown History Aspirin [Aspirin BABY CHEW TAB] 81 mg PO QDAY #30 tab.chew 06/27/21 Unknown Rx Furosemide [Lasix] 40 mg PO DAILY #30 06/27/21 06/23/21 Unknown Rx Hydralazine HCl 50 mg PO BID #60 06/27/21 06/23/21 Unknown Rx Insulin Detemir [Levemir Flextouch] 30 unit SQ QHS 30 Days 06/27/21 06/23/21 Unknown Rx Ipratropium/Albuterol Sulfate 1 spray IH BID #1 vial 06/27/21 06/23/21 Unknown Rx [Combivent Respimat] Potassium Chloride [K-Dur] 10 meq PO QDAY #30 tablet 06/27/21 Unknown Rx Prednisone [predniSONE 5 mg (6-Day 5 mg PO .TAPER #1 06/27/21 Unknown Rx Pack, 21 Tabs)] carvediloL [Coreg] 6.25 mg PO BID #60 tablet 06/27/21 Unknown Rx Active Medications: Generic Name Dose Route Start Last Admin Trade Name Freq PRN Reason Stop Dose Admin Acetaminophen 650 mg 06/22/21 10:00 06/27/21 08:05 Acetaminophen 325 Mg Tab PO 650 mg Q4H PRN Administration Pain MILD(1-3)/Fever >100.5/GONZALEZ Albuterol 2.5 mg 06/22/21 11:00 06/22/21 16:30 Albuterol 2.5 Mg/3 Ml Nebu IH 2.5 mg Q3HRT PRN Administration Shortness Of Breath Arformoterol Tartrate 15 mcg 06/22/21 11:00 06/27/21 08:10 Arformoterol 15 Mcg/2 Ml Nebu IH 15 mcg Q12HRT BRIANDA Administration Aspirin 81 mg 06/23/21 10:00 06/27/21 10:55 Aspirin 81 Mg Tab Chew PO 81 mg QDAY BRIANDA Administration Atorvastatin Calcium 40 mg 06/22/21 22:00 06/26/21 22:05 Atorvastatin 40 Mg Tab PO 40 mg QHS BRIANDA Administration Budesonide 0.5 mg 06/22/21 11:00 06/27/21 08:10 Budesonide 0.5 Mg/2 Ml Nebu IH 0.5 mg Q12HRT BRIANDA Administration Carvedilol 6.25 mg 06/27/21 11:00 06/27/21 10:55 Carvedilol 12.5 Mg Tab PO 6.25 mg BID BRIANDA Administration Dextrose 0 ml 06/22/21 10:37 Dextrose 10% *Hypoglycemia IV PRN PRN Hypoglycemia Docusate Sodium 100 mg 06/22/21 11:00 06/27/21 10:56 Docusate Sodium 100 Mg Cap PO 100 mg BID BRIANDA Administration Escitalopram Oxalate 10 mg 06/22/21 12:00 06/27/21 10:55 Escitalopram 10 Mg Tab PO 10 mg DAILY BRIANDA Administration Famotidine 20 mg 06/23/21 10:00 06/27/21 10:56 Famotidine 20 Mg Tab PO 20 mg BID BRIANDA Administration Furosemide 40 mg 06/27/21 10:00 06/27/21 10:55 Furosemide 40 Mg Tab PO 40 mg QDAY BRIANDA Administration Gabapentin 600 mg 06/22/21 11:00 06/27/21 10:55 Gabapentin 300 Mg Cap PO 600 mg BID BRIANDA Administration Heparin Sodium (Porcine) 5,000 unit 06/22/21 14:00 06/27/21 05:06 Heparin 5,000 Unit/1 Ml Vial SUB-Q 5,000 unit Q8HR BRIANDA Administration Hydralazine HCl 50 mg 06/27/21 10:00 06/27/21 10:57 Hydralazine 25 Mg Tab PO Not Given BID BRIANDA Sodium Chloride 500 mls @ 150 mls/hr 06/27/21 09:00 06/27/21 09:13 Nacl 0.9% 500 Ml IV 06/27/21 14:00 150 mls/hr ONCE@0900 BRIANDA Administration Insulin Glargine 30 units 06/22/21 22:00 06/26/21 22:08 Insulin Glargine 100 Units/Ml SUB-Q 30 units QHS [facility] Administration Insulin Human Lispro 0 unit 06/22/21 11:30 06/27/21 12:24 Insulin Lispro 100 Unit/Ml SUB-Q Not Given ACHS [facility] Protocol Insulin Human Regular 10 units 06/25/21 11:30 06/27/21 12:24 Insulin Regular, Human 100 Units/1 Ml SUB-Q Not Given AC [facility] Isosorbide Mononitrate 30 mg 06/22/21 11:00 06/27/21 10:55 Isosorbide Mononitrate Er 30 Mg Tab PO 30 mg QDAY [facility] Administration Metoclopramide HCl 10 mg 06/22/21 11:00 Metoclopramide 10 Mg/2 Ml Inj IV Q6H PRN Nausea And Vomiting Miscellaneous Medication 1 syr 07/05/21 11:00 Alirocumab [Praluent Pen] SUB-Q Q2W [facility] Morphine Sulfate 2 mg 06/22/21 11:00 06/27/21 09:13 Morphine 2 Mg/1 Ml Inj IV 2 mg Q4H PRN Administration Pain, Moderate (4-6) Naloxone HCl 0.1 mg 06/22/21 11:00 Naloxone 0.4 Mg/1 Ml Inj IV Q2MIN PRN Res Rate </= 8 or 02 SAT < 92% Nitroglycerin 0.4 mg 06/22/21 11:00 Nitroglycerin 0.4 Mg Tab Subl SL .Q5MIN PRN Chest Pain Ondansetron HCl 4 mg 06/22/21 11:00 Ondansetron 4 Mg/2 Ml Inj IV Q4H PRN Nausea And Vomiting Potassium Chloride 10 meq 06/22/21 12:00 06/27/21 10:57 Potassium Chloride Er 10 Meq Tab PO 10 meq QDAY [facility] Administration Senna 8.6 mg 06/22/21 11:00 06/27/21 10:55 Sennosides 8.6 Mg Tab PO 8.6 mg Q12HR BRIANDA Administration Sodium Chloride 10 ml 06/22/21 10:00 06/27/21 10:57 Sodium Chloride 0.9% 10 Ml Flush Syringe IV 10 ml BID BRIANDA Administration Sodium Chloride 10 ml 06/22/21 11:00 Sodium Chloride 0.9% 10 Ml Flush Syringe IV PRN PRN LINE FLUSH Zolpidem Tartrate 5 mg 06/25/21 22:00 Zolpidem 5 Mg Tab PO QHS PRN Sleep
[2021-06-27] MEDS: INSULIN GLARGINE 100 UNITS/ML SUB-Q SCH (21:55)
[2021-06-28] MEDS: HEPARIN 5,000 UNIT/1 ML VIAL SUB-Q SCH ×3 (05:36→23:11)
[2021-06-28] MEDS: BUDESONIDE 0.5 MG/2 ML NEBU IH SCH ×2 (09:23→20:37)
[2021-06-28] MEDS: ARFORMOTEROL 15 MCG/2 ML NEBU IH SCH ×2 (09:23→20:37)
--- NOTE | 2021-06-28 09:23 | Progress Note ---
Assessment and Plan 71 y/o female with dyspnea, more so related to volume overload and CHF with possible asthma exacerbation. 06/28/21: STable pulm status. Will sign off. Call if questions. 1. Feel more volume than asthma. Please change to oral steroids and taper quickly 2. Patient stable on room air 3. Diuresis per cardiology 4. Will see as needed. Subjective Date of service: 06/28/21 Principal diagnosis: Acute on chronic diastolic heart failure, asthma exacerbation Interval history: Patient still here as she is waiting on placement. Pulm status stable. Off steroids. Objective Vital Signs - 12hr 06/27/21 06/27/21 06/27/21 21:53 21:58 23:08 Temperature 98.3 F Pulse Rate 72 Pulse Rate [ Anterior Bilateral Throughout] Respiratory 16 Rate Respiratory Rate [Anterior Bilateral Throughout] Blood Pressure 108/54 108/54 108/45 O2 Sat by Pulse 94 Oximetry 06/28/21 06/28/21 06/28/21 00:27 00:56 03:19 Temperature 97.4 F L Pulse Rate 71 66 Pulse Rate [ Anterior Bilateral Throughout] Respiratory 16 18 Rate Respiratory Rate [Anterior Bilateral Throughout] Blood Pressure 124/52 O2 Sat by Pulse 94 100 99 Oximetry 06/28/21 06/28/21 07:54 08:00 Temperature 97.4 F L Pulse Rate 57 L Pulse Rate [ 61 Anterior Bilateral Throughout] Respiratory Rate Respiratory 18 Rate [Anterior Bilateral Throughout] Blood Pressure 139/61 O2 Sat by Pulse 100 Oximetry Constitutional: alert, other (morbidly obese, mild distress) Eyes: non-icteric ENT: oropharynx moist Neck: supple, other (large in circumference) Effort: normal Ascultation: Bilateral: wheezes (mild) Cardiovascular: regular rate and rhythm Gastrointestinal: normoactive bowel sounds, soft, non-distended, other (obese) Integumentary: normal Neurologic: normal mental status, non-focal exam CBC and BMP: 06/27/21 04:50 06/28/21 08:11 ABG, PT/INR, D-dimer: ABG ABG pH 7.326 pH Units (7.350-7.450) L 06/24/21 08:50 ABG pCO2 53.8 mm Hg 06/24/21 08:50 ABG pO2 69.6 mm Hg (80.0-90.0) L 06/24/21 08:50 ABG O2 Saturation 94.7 % (95.0-99.0) L 06/24/21 08:50 PT/INR, D-dimer PT 15.9 Sec. (12.2-14.9) H 06/22/21 06:51 INR 1.14 (0.87-1.13) H 06/22/21 06:51 Abnormal lab findings: Abnormal Labs 06/22/21 06/22/21 06/22/21 06:51 06:51 06:52 MCH 26 L RDW 16.2 H Plt Count 114 L Lymph % (Auto) 12.4 L Cand[place] % (Auto) 12.4 H Lymph # (Auto) 0.6 L [place] # (Auto) Seg Neutrophils % 71.0 H PT 15.9 H INR 1.14 H ABG pH ABG pO2 ABG HCO3 ABG O2 Saturation ABG Hemoglobin Oxyhemoglobin Sodium Potassium Chloride BUN Creatinine Glucose 138 H POC Glucose Hemoglobin A1c Calcium Magnesium NT-Pro-B Natriuret Pep Albumin 3.3 L Urine Creatinine Urine Total Protein 06/22/21 06/22/21 06/22/21 06:52 06:52 16:03 MCH RDW Plt Count Lymph % (Auto) Candler % (Auto) Lymph # (Auto) Cand[place] # (Auto) Seg Neutrophils % PT INR ABG pH ABG pO2 ABG HCO3 ABG O2 Saturation ABG Hemoglobin Oxyhemoglobin Sodium Potassium Chloride BUN Creatinine Glucose POC Glucose 156 H Hemoglobin A1c 6.6 H Calcium Magnesium NT-Pro-B Natriuret Pep 9614 H Albumin Urine Creatinine Urine Total Protein 06/22/21 06/23/21 06/23/21 21:14 04:43 04:43 MCH 26 L RDW 16.2 H Plt Count Lymph % (Auto) 8.1 L Cand[place] % (Auto) Lymph # (Auto) 0.4 L Cand[place] # (Auto) Seg Neutrophils % 89.1 H PT INR ABG pH ABG pO2 ABG HCO3 ABG O2 Saturation ABG Hemoglobin Oxyhemoglobin Sodium Potassium Chloride BUN 22 H Creatinine 1.4 H Glucose 295 H POC Glucose 290 H Hemoglobin A1c Calcium 8.0 L Magnesium NT-Pro-B Natriuret Pep Albumin Urine Creatinine Urine Total Protein 06/23/21 06/23/21 06/23/21 07:48 10:15 11:23 MCH RDW Plt Count Lymph % (Auto) Cand[place] % (Auto) Lymph # (Auto) Cand[place] # (Auto) Seg Neutrophils % PT INR ABG pH 7.327 L ABG pO2 61.1 L ABG HCO3 26.4 H ABG O2 Saturation 90.2 L ABG Hemoglobin 11.7 L Oxyhemoglobin 88.3 L Sodium Potassium Chloride BUN Creatinine Glucose POC Glucose 229 H 229 H Hemoglobin A1c Calcium Magnesium NT-Pro-B Natriuret Pep Albumin Urine Creatinine Urine Total Protein 06/23/21 06/23/21 06/24/21 15:43 20:35 04:21 MCH RDW Plt Count Lymph % (Auto) Cand[place] % (Auto) Lymph # (Auto) Cand[place] # (Auto) Seg Neutrophils % PT INR ABG pH ABG pO2 ABG HCO3 ABG O2 Saturation ABG Hemoglobin Oxyhemoglobin Sodium Potassium Chloride BUN 33 H Creatinine 1.5 H Glucose 287 H POC Glucose 247 H 291 H Hemoglobin A1c Calcium 8.2 L Magnesium NT-Pro-B Natriuret Pep Albumin Urine Creatinine Urine Total Protein 06/24/21 06/24/21 06/24/21 07:21 08:50 11:23 MCH RDW Plt Count Lymph % (Auto) Cand[place] % (Auto) Lymph # (Auto) Cand[place] # (Auto) Seg Neutrophils % PT INR ABG pH 7.326 L ABG pO2 69.6 L ABG HCO3 27.5 H ABG O2 Saturation 94.7 L ABG Hemoglobin 11.3 L Oxyhemoglobin 92.8 L Sodium Potassium Chloride BUN 34 H Creatinine 1.5 H Glucose 315 H POC Glucose 213 H Hemoglobin A1c Calcium 8.2 L Magnesium NT-Pro-B Natriuret Pep Albumin Urine Creatinine Urine Total Protein 06/24/21 06/24/21 06/24/21 11:37 16:46 20:02 MCH RDW Plt Count Lymph % (Auto) Cand[place] % (Auto) Lymph # (Auto) Cand[place] # (Auto) Seg Neutrophils % PT INR ABG pH ABG pO2 ABG HCO3 ABG O2 Saturation ABG Hemoglobin Oxyhemoglobin Sodium Potassium Chloride BUN Creatinine Glucose POC Glucose 269 H 239 H 332 H Hemoglobin A1c Calcium Magnesium NT-Pro-B Natriuret Pep Albumin Urine Creatinine Urine Total Protein 06/25/21 06/25/21 06/25/21 06:31 07:16 11:22 MCH RDW Plt Count Lymph % (Auto) Candler % (Auto) Lymph # (Auto) Cand[place] # (Auto) Seg Neutrophils % PT INR ABG pH ABG pO2 ABG HCO3 ABG O2 Saturation ABG Hemoglobin Oxyhemoglobin Sodium 135 L Potassium Chloride 97.1 L BUN 45 H Creatinine 1.7 H Glucose 273 H POC Glucose 239 H 242 H Hemoglobin A1c Calcium 8.3 L Magnesium NT-Pro-B Natriuret Pep Albumin Urine Creatinine Urine Total Protein 06/25/21 06/25/21 06/25/21 14:00 15:46 20:22 MCH RDW Plt Count Lymph % (Auto) Candler % (Auto) Lymph # (Auto) Cand[place] # (Auto) Seg Neutrophils % PT INR ABG pH ABG pO2 ABG HCO3 ABG O2 Saturation ABG Hemoglobin Oxyhemoglobin Sodium Potassium Chloride BUN Creatinine Glucose POC Glucose 279 H 279 H Hemoglobin A1c Calcium Magnesium NT-Pro-B Natriuret Pep Albumin Urine Creatinine 20.8 H Urine Total Protein 67 H 06/26/21 06/26/21 06/26/21 05:42 07:51 12:00 MCH RDW Plt Count Lymph % (Auto) Cand[place] % (Auto) Lymph # (Auto) Cand[place] # (Auto) Seg Neutrophils % PT INR ABG pH ABG pO2 ABG HCO3 ABG O2 Saturation ABG Hemoglobin Oxyhemoglobin Sodium Potassium Chloride 97.1 L BUN 55 H Creatinine 1.6 H Glucose 271 H POC Glucose 264 H 274 H Hemoglobin A1c Calcium Magnesium 2.40 H NT-Pro-B Natriuret Pep Albumin Urine Creatinine Urine Total Protein 06/26/21 06/26/21 06/27/21 15:24 20:31 04:50 MCH 25 L RDW 15.9 H Plt Count 119 L Lymph % (Auto) 12.7 L Cand[place] % (Auto) 15.9 H Lymph # (Auto) 0.7 L Candler # (Auto) 0.9 H Seg Neutrophils % 70.7 H PT INR ABG pH ABG pO2 ABG HCO3 ABG O2 Saturation ABG Hemoglobin Oxyhemoglobin Sodium Potassium Chloride BUN Creatinine Glucose POC Glucose 283 H 237 H Hemoglobin A1c Calcium Magnesium NT-Pro-B Natriuret Pep Albumin Urine Creatinine Urine Total Protein 06/27/21 06/27/21 06/27/21 04:50 07:38 11:33 MCH RDW Plt Count Lymph % (Auto) Candler % (Auto) Lymph # (Auto) Cand[place] # (Auto) Seg Neutrophils % PT INR ABG pH ABG pO2 ABG HCO3 ABG O2 Saturation ABG Hemoglobin Oxyhemoglobin Sodium Potassium 3.5 L Chloride 96.0 L BUN 59 H Creatinine 1.4 H Glucose 180 H POC Glucose 115 H 138 H Hemoglobin A1c Calcium 8.1 L Magnesium NT-Pro-B Natriuret Pep Albumin Urine Creatinine Urine Total Protein 06/27/21 06/27/21 06/28/21 16:22 20:13 07:54 MCH RDW Plt Count Lymph % (Auto) Cand[place] % (Auto) Lymph # (Auto) Cand[place] # (Auto) Seg Neutrophils % PT INR ABG pH ABG pO2 ABG HCO3 ABG O2 Saturation ABG Hemoglobin Oxyhemoglobin Sodium Potassium Chloride BUN Creatinine Glucose POC Glucose 202 H 213 H 165 H Hemoglobin A1c Calcium Magnesium NT-Pro-B Natriuret Pep Albumin Urine Creatinine Urine Total Protein 06/28/21 08:11 MCH RDW Plt Count Lymph % (Auto) Candler % (Auto) Lymph # (Auto) Cand[place] # (Auto) Seg Neutrophils % PT INR ABG pH ABG pO2 ABG HCO3 ABG O2 Saturation ABG Hemoglobin Oxyhemoglobin Sodium 136 L Potassium Chloride BUN 64 H Creatinine 1.4 H Glucose 173 H POC Glucose Hemoglobin A1c Calcium 8.0 L Magnesium NT-Pro-B Natriuret Pep Albumin Urine Creatinine Urine Total Protein
[2021-06-28] MEDS ORDERED: methylPREDNISolone Sod Succinate 40 MG/1 ML INJ IV SCH (10:00)
[2021-06-28] MEDS: INSULIN REGULAR, HUMAN 100 UNITS/1 ML SUB-Q SCH ×3 (10:06→17:08)
[2021-06-28] MEDS: INSULIN LISPRO 100 UNIT/ML SUB-Q SCH ×4 (10:07→23:11)
[2021-06-28] MEDS: ASPIRIN 81 MG TAB CHEW PO SCH (10:10)
[2021-06-28] MEDS: GABAPENTIN 300 MG CAP PO SCH ×2 (10:10→23:12)
[2021-06-28] MEDS: FUROSEMIDE 40 MG TAB PO SCH (10:12)
[2021-06-28] MEDS: ESCITALOPRAM 10 MG TAB PO SCH (10:12)
[2021-06-28] MEDS: POTASSIUM CHLORIDE ER 10 MEQ TAB PO SCH (10:13)
[2021-06-28] MEDS: carvediloL 6.25 MG TAB PO SCH ×2 (10:14→23:13)
[2021-06-28] MEDS: hydrALAZINE 25 MG TAB PO SCH ×2 (10:15→23:12)
[2021-06-28] MEDS: SENNOSIDES 8.6 MG TAB PO SCH ×2 (10:24→23:14)
[2021-06-28] MEDS: DOCUSATE SODIUM 100 MG CAP PO SCH ×2 (10:49→23:14)
[2021-06-28] MEDS: FAMOTIDINE 20 MG TAB PO SCH ×2 (10:51→23:12)
--- NOTE | 2021-06-28 12:58 | Progress Note ---
Assessment and Plan Patient is 71-year-old female with a past medical history of coronary artery disease, cardiomyopathy EF 55 to 60%, pulmonary hypertension, hypertension, asthma, right AKA presented to the ED with a complaint of progressively worsening shortness of breath x1 week Acute on chronic diastolic heart failure Severe pulmonary hypertension Asthma- Pulmonology following Coronary artery disease Cardiomyopathy Hypertension Chronic lymphedema-vascular consulted PET Perfusion Study (Rest/Stress) 06/14/2021- Negative Lexiscan . Normal rest and stress myocardial PET perfusion scan. No significant ischemia. No wall motion abnormality. Gated SPECT at rest 50%, stress 57%. Coronary flow reserve globally at 1.67 with RV dilatation noted. Echocardiogram 06/14/2021- Contrast was utilized. There is normal LV systolic function. LV wall thickness is mild to moderately increased. The estimated left ventricle ejection fraction is 55-60%. There is increased left atrial pressure and Grade II diastolic dysfunction. There is normal right ventricular size, wall dimension, and systolic function. The LA volume is moderately increased. There is no aortic valve stenosis or regurgitation. There is no mitral regurgitation. There is mild tricuspid regurgitation. There is severe pulmonary hypertension. The estimated RV systolic pressure is >60. There is no pulmonic regurgitation. There is a trace posterior pericardial effusion. No left ventricular thrombus noted with LV contrast images. Outpatient medications: Lasix 40 mg p.o. twice daily, hydralazine 50 mg p.o. 3 times daily, metolazone 2.5 mg p.o. daily, aspirin, atorvastatin, Coreg 12.5 mg p.o. twice daily, Imdur 30 mg p.o. daily, Plan: Patient having good urine output and improvement in respiratory status. Creatinine noted to have elevation however will stop metolazone. Nephrology currently following. Discussed case with nephrology. Will defer volume management to nephrology due to increasing creatinine Strict I&O's, close monitoring of renal indicis, and repeat BMP. Continue current medications with hydralazine 50 mg p.o. twice daily, Lasix 40 mg p.o. daily, Coreg 6.25 mg p.o. twice daily, aspirin, atorvastatin, Imdur Cardiac status otherwise stable. Will see as needed Patient follow-up with Dr. Pierre, [facility] reading specialist, 1 to 2 weeks after discharge. Phone #[phone] Patient seen in conjunction with Dr. Ugalde who agrees with this plan of care - Patient Problems (1) Acute on chronic diastolic heart failure Current Visit: Yes Status: Acute (2) Severe pulmonary hypertension Current Visit: Yes Status: Acute (3) Asthma Current Visit: No Status: Chronic (4) Essential hypertension Current Visit: No Status: Chronic (5) HTN (hypertension) Current Visit: No Status: Chronic (6) History of PTCA Current Visit: No Status: Chronic (7) GUIDO (obstructive sleep apnea) Current Visit: No Status: Chronic (8) PVD (peripheral vascular disease) Current Visit: No Status: Chronic Subjective Date of service: 06/28/21 Principal diagnosis: Acute on chronic diastolic heart failure, asthma exacerbation Interval history: Patient sitting in bed in no acute distress. Appears tired this a.m. Sinus 60s on monitor with no events Objective Vital Signs Temp Pulse Pulse Resp Resp BP Pulse Ox 06/28/21 11:31 98.3 F 78 127/54 97 06/28/21 10:15 75 117/68 06/28/21 10:14 75 06/28/21 10:11 75 06/28/21 09:24 65 18 98 06/28/21 08:00 61 18 06/28/21 07:54 97.4 F L 57 L 139/61 100 06/28/21 03:19 97.4 F L 66 18 124/52 99 06/28/21 00:56 71 16 100 06/28/21 00:27 94 06/27/21 23:08 98.3 F 72 16 108/45 94 06/27/21 21:58 108/54 06/27/21 21:53 108/54 06/27/21 21:07 61 18 95 06/27/21 19:26 98.0 F 80 14 108/54 95 06/27/21 16:24 98.0 F 62 18 113/55 98 - Physical Examination General: No Apparent Distress HEENT: Positive: Normocephaly Neck: Positive: trachea midline Cardiac: Positive: Reg Rate and Rhythm Lungs: Positive: Decreased Breath Sounds Neuro: Positive: Grossly Intact Abdomen: Positive: Soft Skin: Negative: Rash, Suspicious Lesions, Ulceration Extremities: Present: upper extr. pulses, edema (mild) - Labs and Meds Comprehensive Metabolic Panel 06/28/21 Range/Units 08:11 Sodium 136 L (137-145) mmol/L Potassium 4.2 (3.6-5.0) mmol/L Chloride 99.3 (98-107) mmol/L Carbon Dioxide 28 (22-30) mmol/L BUN 64 H (7-17) mg/dL Creatinine 1.4 H (0.6-1.2) mg/dL Glucose 173 H (65-100) mg/dL Calcium 8.0 L (8.4-10.2) mg/dL - Imaging and Cardiology Echo: report reviewed - Telemetry EKG Rhythm: Sinus Rhythm - EKG Sinus rhythms and dysrhythmias: sinus rhythm
--- NOTE | 2021-06-28 13:00 | Progress Note ---
Assessment and Plan Patient is 71-year-old female with a past medical history of coronary artery disease, cardiomyopathy EF 55 to 60%, pulmonary hypertension, hypertension, asthma, right AKA, left leg chronic lymphadenopathy presented to the ED with a complaint of progressively worsening shortness of breath x1 week. Chest [id number], CHF. No pneumothorax Assessment: Acute CHF exacerbation- presumed diastolic -PET Perfusion Study (Rest/Stress) 06/14/2021- Negative Lexiscan -Echocardiogram 06/14/2021 ventricle ejection fraction is 55-60% Acute Hypoxic Respiratory failure -likely due to underlying CHF and asthma exacerbation Right stump pain ?CELLULITIS, treated with antibiotics Paraoxysmal Atrial Fibrillation, rate controlled HTN, continue current meds Hyperlipidemia, continue statin DM type II, consistent carb diet and continue routine home medications ASTHMA WITH ACUTE EXACERBATION, continue nebulizer, status post steroid GUIDO on CPAP, continue CPAP at night 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 Reduce diuresis, gentle IV fluid hydration PLAN 06/23/21: Pending 2D echocardiogram, cardiology following. We will continue IV diuresis for now. Patient stated that she had recent vascular procedure by Dr. Christiansen, will consult vascular. We will continue to follow BMP, will continue to adjust medications. Continue nebulizer breathing treatment and supplemental O2 as needed. BiPAP at bedtime. 06/24: cont iv diuresis, started on metolazone. Cr trended up, follow BMP. cont supplemental O2. pulmonary following. cont abx for possible cellulites 06/25: Creatinine cont to trend up, will stop metolazone. Nephrology consulted. Discussed case with nephrology. Will defer volume management to nephrology due to increasing creatinine. cont Strict I&O's, close monitoring of renal indicis, and repeat BMP. Continue outpatient medications, follow BMP. 06/26: Cr slightly trended down, changed lasix to po. cont to follow BMP. if clinically stable and Cr cont to improve possible d/c in the am 06/27: BP soft, adjusted medication, planned for gentle hydration. Patient was planned for D/c home with HH with outpt followup, but family then decided for SNF placement. manager spanish consulted Subjective Date of service: 06/27/21 Principal diagnosis: Acute on chronic diastolic heart failure, asthma exace rbation Interval history: Patient seen and examined. Medical records and medication list reviewed. No acute event overnight noted by the RN. Patient denies any chest pain, sob improved Improved but still has lower extremity edema, patient is tolerating diet. Cr trending down, Discussed plan of care at bedside with patient and with her daughter. BP noted to be soft today, initiated on gentle IV fluid Patient was planned for discharge this afternoon but family then decided for SNF placement Objective - Exam Narrative Exam: GENERAL: well-developed and morbidly obese elderly female lying on bed appeared to be in no discomfort. HEENT: Normocephalic. Atraumatic. No conjunctival congestion or icterus. Patient has moist mucous membranes. NECK: Supple. Trachea midline. CHEST/LUNGS: Clear to auscultated bilaterally, breathing nonlabored. No wheezes crackles or rhonchi. HEART/CARDIOVASCULAR: Regular in rate and rhythm. S1 and S2 positive. ABDOMEN: Abdomen is soft, nontender, obese. Patient has normal bowel sounds. SKIN: There is no rash. Warm and dry. NEURO: No focal motor deficit. Follows command. MUSCULOSKELETAL: No joint effusion or tenderness. EXTRIMITY: Positive edema on left lower extremity, no cyanosis or clubbing. Status post right AKA PSYCH: Cooperative. - Constitutional Vitals: Vital Signs - 12hr 06/28/21 06/28/21 06/28/21 03:19 07:54 08:00 Temperature 97.4 F L 97.4 F L Pulse Rate 66 57 L Pulse Rate [ 61 Anterior Bilateral Throughout] Respiratory 18 Rate Respiratory 18 Rate [Anterior Bilateral Throughout] Blood Pressure 124/52 139/61 O2 Sat by Pulse 99 100 Oximetry 06/28/21 06/28/21 06/28/21 09:24 10:11 10:14 Temperature Pulse Rate 75 75 Pulse Rate [ 65 Anterior Bilateral Throughout] Respiratory Rate Respiratory 18 Rate [Anterior Bilateral Throughout] Blood Pressure O2 Sat by Pulse 98 Oximetry 06/28/21 06/28/21 10:15 11:31 Temperature 98.3 F Pulse Rate 75 78 Pulse Rate [ Anterior Bilateral Throughout] Respiratory Rate Respiratory Rate [Anterior Bilateral Throughout] Blood Pressure 117/68 127/54 O2 Sat by Pulse 97 Oximetry - Labs CBC & Chem 7: 06/27/21 04:50 06/28/21 08:11 Labs: Abnormal lab results 06/27/21 06/27/21 06/27/21 Range/Units 07:38 11:33 16:22 Sodium (137-145) mmol/L BUN (7-17) mg/dL Creatinine (0.6-1.2) mg/dL Glucose (65-100) mg/dL POC Glucose 115 H 138 H 202 H (70-105) mg/dL Calcium (8.4-10.2) mg/dL 06/27/21 06/28/21 06/28/21 Range/Units 20:13 07:54 08:11 Sodium 136 L (137-145) mmol/L BUN 64 H (7-17) mg/dL Creatinine 1.4 H (0.6-1.2) mg/dL Glucose 173 H (65-100) mg/dL POC Glucose 213 H 165 H (70-105) mg/dL Calcium 8.0 L (8.4-10.2) mg/dL HEART Score - HEART Score Troponin: Troponin T < 0.010 ng/mL (0.00-0.029) 06/22/21 06:51
--- NOTE | 2021-06-28 14:29 | Progress Note ---
Assessment and Plan 1. Acute kidney injury: Vasomotor LEXIE in the setting of hypotension / CHF. Urine studies ordered. Baseline renal function is unknown. Monitor renal function. Creatinine level is improving. Avoid nephrotoxic agents. Meds dosage based on GFR. 2. FEN: Volume overload, diuretics, monitor. Replete lytes. Monitor lytes and volume status. 3. Acute on chronic HFpEF: Cardiomyopathy. CHF pathway. Lasix. Followed by Cards. 4. Severe pulmonary hypertension. 5. Coronary artery disease 6. Hypertension: BP controlled. 7. Asthma. Subjective: Patient was seen and examined at the bedside. No new complaint. Examination: General appearance: well-developed, appears stated age, morbidly obese, no distress HEENT: atraumatic, pupils reacting to light Neck: trachea midline Respiratory: decreased breath sounds Heart: S1S2, regular, no murmur Abdomen: soft, obese, bowel sounds heard, NT Integumentary: no obvious rash Neurologic: AO, able to move extremities Ext: R AKA, ext and dependent edema Subjective Date of service: 06/28/21 Principal diagnosis: Acute on chronic diastolic heart failure, asthma exacerbation Objective - Vital Signs Vital signs: Vital Signs - 12hr 06/28/21 06/28/21 06/28/21 03:19 07:54 08:00 Temperature 97.4 F L 97.4 F L Pulse Rate 66 57 L Pulse Rate [ 61 Anterior Bilateral Throughout] Respiratory 18 Rate Respiratory 18 Rate [Anterior Bilateral Throughout] Blood Pressure 124/52 139/61 O2 Sat by Pulse 99 100 Oximetry 06/28/21 06/28/21 06/28/21 09:24 10:11 10:14 Temperature Pulse Rate 75 75 Pulse Rate [ 65 Anterior Bilateral Throughout] Respiratory Rate Respiratory 18 Rate [Anterior Bilateral Throughout] Blood Pressure O2 Sat by Pulse 98 Oximetry 06/28/21 06/28/21 10:15 11:31 Temperature 98.3 F Pulse Rate 75 78 Pulse Rate [ Anterior Bilateral Throughout] Respiratory Rate Respiratory Rate [Anterior Bilateral Throughout] Blood Pressure 117/68 127/54 O2 Sat by Pulse 97 Oximetry - Lab 06/27/21 04:50 06/28/21 08:11 Most recent lab results ABG pH 7.326 pH Units (7.350-7.450) L 06/24/21 08:50 ABG pCO2 53.8 mm Hg 06/24/21 08:50 ABG pO2 69.6 mm Hg (80.0-90.0) L 06/24/21 08:50 ABG HCO3 27.5 mmol/L (20.0-26.0) H 06/24/21 08:50 ABG O2 Saturation 94.7 % (95.0-99.0) L 06/24/21 08:50 Calcium 8.0 mg/dL (8.4-10.2) L 06/28/21 08:11 Magnesium 2.20 mg/dL (1.7-2.3) 06/27/21 04:50 Urine Creatinine 20.8 mg/dL (0.1-20.0) H 06/25/21 14:00 Urine Sodium 104 mmol/L 06/25/21 14:00 Urine Total Protein 67 mg/dL (5-11.8) H 06/25/21 14:00 Medications & Allergies - Medications Allergies/Adverse Reactions: Allergies ROSALVA Inhibitors Adverse Reaction (Intermediate, Verified 06/23/21 08:04) Angioedema patient is unaware of this allergy. informed it was on her profile added by MD Godwin. codeine Adverse Reaction (Verified 06/23/21 08:04) Nausea Home Medications: Home Medications Medication Instructions Recorded Confirmed Last Taken Type Escitalopram Oxalate [Lexapro] 10 mg PO QDAY 08/01/13 06/23/21 10/04/17 09:00 History Gabapentin [Neurontin] 600 mg PO BID 08/01/13 06/23/21 10/04/17 21:00 History Isosorbide Mononitrate [Isosorbide 30 mg PO QDAY 08/01/13 06/23/21 10/04/17 21:00 History Mononitrate ER] Zolpidem [Ambien] 5 mg PO QHS PRN 08/01/13 06/23/21 10/04/17 21:00 History metFORMIN [Glucophage] 500 mg PO BID 08/01/13 06/23/21 10/04/17 21:00 History AtorvaSTATin [Lipitor] 40 mg PO QHS 08/30/17 06/23/21 10/04/17 17:00 History Omeprazole 40 mg PO DAILY 08/30/17 06/23/21 10/04/17 09:00 History Alirocumab [Praluent Pen] 1 syr SQ Q2W 06/23/21 06/23/21 Unknown History Aspirin EC [Halfprin EC] 81 mg PO QDAY 06/23/21 06/23/21 Unknown History Fluticasone/Umeclidin/Vilanter 1 puff INHALATION DAILY 06/23/21 06/23/21 Unknown History [Trelegy Ellipta 100-62.5-25(Nf)] Insulin Aspart [Novolog Flexpen] 0 unit SQ AC 06/23/21 06/23/21 Unknown History Metoclopramide [Reglan TAB] 10 mg PO BID 06/23/21 06/23/21 Unknown History Aspirin [Aspirin BABY CHEW TAB] 81 mg PO QDAY #30 tab.chew 06/27/21 Unknown Rx Furosemide [Lasix] 40 mg PO DAILY #30 06/27/21 06/23/21 Unknown Rx Hydralazine HCl 50 mg PO BID #60 06/27/21 06/23/21 Unknown Rx Insulin Detemir [Levemir Flextouch] 30 unit SQ QHS 30 Days 06/27/21 06/23/21 Unknown Rx Ipratropium/Albuterol Sulfate 1 spray IH BID #1 vial 06/27/21 06/23/21 Unknown Rx [Combivent Respimat] Potassium Chloride [K-Dur] 10 meq PO QDAY #30 tablet 06/27/21 Unknown Rx Prednisone [predniSONE 5 mg (6-Day 5 mg PO .TAPER #1 06/27/21 Unknown Rx Pack, 21 Tabs)] carvediloL [Coreg] 6.25 mg PO BID #60 tablet 06/27/21 Unknown Rx Active Medications: Generic Name Dose Route Start Last Admin Trade Name Luisq PRN Reason Stop Dose Admin Acetaminophen 650 mg 06/22/21 10:00 06/27/21 08:05 Acetaminophen 325 Mg Tab PO 650 mg Q4H PRN Administration Pain MILD(1-3)/Fever >100.5/GONZALEZ Albuterol 2.5 mg 06/22/21 11:00 06/22/21 16:30 Albuterol 2.5 Mg/3 Ml Nebu IH 2.5 mg Q3HRT PRN Administration Shortness Of Breath Arformoterol Tartrate 15 mcg 06/22/21 11:00 06/28/21 09:23 Arformoterol 15 Mcg/2 Ml Nebu IH 15 mcg Q12HRT BRIANDA Administration Aspirin 81 mg 06/23/21 10:00 06/28/21 10:10 Aspirin 81 Mg Tab Chew PO 81 mg QDAY BRIANDA Administration Atorvastatin Calcium 40 mg 06/22/21 22:00 06/27/21 21:55 Atorvastatin 40 Mg Tab PO 40 mg QHS BRIANDA Administration Budesonide 0.5 mg 06/22/21 11:00 06/28/21 09:23 Budesonide 0.5 Mg/2 Ml Nebu IH 0.5 mg Q12HRT BRIANDA Administration Carvedilol 6.25 mg 06/28/21 10:00 06/28/21 10:14 Carvedilol 6.25 Mg Tab PO 6.25 mg BID BRIANDA Administration Dextrose 0 ml 06/22/21 10:37 Dextrose 10% *Hypoglycemia IV PRN PRN Hypoglycemia Docusate Sodium 100 mg 06/22/21 11:00 06/28/21 10:49 Docusate Sodium 100 Mg Cap PO Not Given BID [facility] Escitalopram Oxalate 10 mg 06/22/21 12:00 06/28/21 10:12 Escitalopram 10 Mg Tab PO 10 mg DAILY BRIANDA Administration Famotidine 20 mg 06/23/21 10:00 06/28/21 10:51 Famotidine 20 Mg Tab PO 20 mg BID BRIANDA Administration Furosemide 40 mg 06/27/21 10:00 06/28/21 10:12 Furosemide 40 Mg Tab PO 40 mg QDAY BRIANDA Administration Gabapentin 600 mg 06/22/21 11:00 06/28/21 10:10 Gabapentin 300 Mg Cap PO 600 mg BID BRIANDA Administration Heparin Sodium (Porcine) 5,000 unit 06/22/21 14:00 06/28/21 05:36 Heparin 5,000 Unit/1 Ml Vial SUB-Q 5,000 unit Q8HR BRIANDA Administration Hydralazine HCl 50 mg 06/27/21 10:00 06/28/21 10:15 Hydralazine 25 Mg Tab PO Not Given BID [facility] Insulin Glargine 30 units 06/22/21 22:00 06/27/21 21:55 Insulin Glargine 100 Units/Ml SUB-Q 30 units QHS BRIANDA Administration Insulin Human Lispro 0 unit 06/22/21 11:30 06/28/21 10:07 Insulin Lispro 100 Unit/Ml SUB-Q 2 unit ACHS BRIANDA Administration Protocol Insulin Human Regular 10 units 06/25/21 11:30 06/28/21 10:06 Insulin Regular, Human 100 Units/1 Ml SUB-Q 10 units AC BRIANDA Administration Isosorbide Mononitrate 30 mg 06/22/21 11:00 06/28/21 10:11 Isosorbide Mononitrate Er 30 Mg Tab PO 30 mg QDAY BRIANDA Administration Metoclopramide HCl 10 mg 06/22/21 11:00 Metoclopramide 10 Mg/2 Ml Inj IV Q6H PRN Nausea And Vomiting Miscellaneous Medication 1 syr 07/05/21 11:00 Alirocumab [Praluent Pen] SUB-Q Q2W BRIANDA Morphine Sulfate 2 mg 06/22/21 11:00 06/27/21 09:13 Morphine 2 Mg/1 Ml Inj IV 2 mg Q4H PRN Administration Pain, Moderate (4-6) Naloxone HCl 0.1 mg 06/22/21 11:00 Naloxone 0.4 Mg/1 Ml Inj IV Q2MIN PRN Res Rate </= 8 or 02 SAT < 92% Nitroglycerin 0.4 mg 06/22/21 11:00 Nitroglycerin 0.4 Mg Tab Subl SL .Q5MIN PRN Chest Pain Ondansetron HCl 4 mg 06/22/21 11:00 Ondansetron 4 Mg/2 Ml Inj IV Q4H PRN Nausea And Vomiting Potassium Chloride 10 meq 06/22/21 12:00 06/28/21 10:13 Potassium Chloride Er 10 Meq Tab PO 10 meq QDAY BRIANDA Administration Senna 8.6 mg 06/22/21 11:00 06/28/21 10:24 Sennosides 8.6 Mg Tab PO Not Given Q12HR BRIANDA Sodium Chloride 10 ml 06/22/21 10:00 06/28/21 10:25 Sodium Chloride 0.9% 10 Ml Flush Syringe IV 10 ml BID BRIANDA Administration Sodium Chloride 10 ml 06/22/21 11:00 Sodium Chloride 0.9% 10 Ml Flush Syringe IV PRN PRN LINE FLUSH Zolpidem Tartrate 5 mg 06/25/21 22:00 Zolpidem 5 Mg Tab PO QHS PRN Sleep
[2021-06-28] MEDS: INSULIN GLARGINE 100 UNITS/ML SUB-Q SCH (23:11)
[2021-06-29 06:27] LABS: Hematocrit 36.9 % (30.3-42.9); Hemoglobin 11.8 gm/dl (10.1-14.3); Mean Corpuscular HGB Conc 32 % (30-34); Mean Corpuscular Volume 82 fl (79-97); Platelet Count 120 K/mm3 (140-440); Red Blood Count 4.53 M/mm3 (3.65-5.03)
[2021-06-29] MEDS: HEPARIN 5,000 UNIT/1 ML VIAL SUB-Q SCH ×3 (06:32→22:03)
[2021-06-29 06:46] LABS: Calcium 7.8 mg/dL (8.4-10.2)
[2021-06-29 07:39] LABS: Band Neutrophils # (Manual) 0.1 K/mm3; Basophils % (Manual) 0 % (0.0-1.8); RBC Morphology Normal; Total Cells Counted 100
[2021-06-29 07:40] LABS: Large Platelets Few; Platelet Estimate Consistent w Auto
--- NOTE | 2021-06-29 08:57 | Progress Note ---
Assessment and Plan Assessment and plan: Patient is 71-year-old female with a past medical history of coronary artery disease, cardiomyopathy EF 55 to 60%, pulmonary hypertension, hypertension, asthma, right AKA, left leg chronic lymphadenopathy presented to the ED with a complaint of progressively worsening shortness of breath x1 week. Chest [id number], CHF. No pneumothorax Assessment: Acute CHF exacerbation- presumed diastolic -PET Perfusion Study (Rest/Stress) 06/14/2021- Negative Lexiscan -Echocardiogram 06/14/2021 ventricle ejection fraction is 55-60% Acute Hypoxic Respiratory failure -likely due to underlying CHF and asthma exacerbation Right stump pain ?CELLULITIS, treated with antibiotics Paraoxysmal Atrial Fibrillation, rate controlled HTN, continue current meds Hyperlipidemia, continue statin DM type II, consistent carb diet and continue routine home medications ASTHMA WITH ACUTE EXACERBATION, continue nebulizer, status post steroid GUIDO on CPAP, continue CPAP at night 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 Reduce diuresis, gentle IV fluid hydration PLAN 06/23/21: Pending 2D echocardiogram, cardiology following. We will continue IV diuresis for now. Patient stated that she had recent vascular procedure by Dr. Christiansen, will consult vascular. We will continue to follow BMP, will continue to adjust medications. Continue nebulizer breathing treatment and supplemental O2 as needed. BiPAP at bedtime. 06/24: cont iv diuresis, started on metolazone. Cr trended up, follow BMP. cont supplemental O2. pulmonary following. cont abx for possible cellulites 06/25: Creatinine cont to trend up, will stop metolazone. Nephrology consulted. Discussed case with nephrology. Will defer volume management to nephrology due to increasing creatinine. cont Strict I&O's, close monitoring of renal indicis, and repeat BMP. Continue outpatient medications, follow BMP. 06/26: Cr slightly trended down, changed lasix to po. cont to follow BMP. if clinically stable and Cr cont to improve possible d/c in the am 06/27: BP soft, adjusted medication, planned for gentle hydration. Patient was planned for D/c home with HH with outpt followup, but family then decided for SNF placement. residence manager consulted 06/29; daughter says patient is very weak and is shaking all over. Does not feel comfortable taking her home Want to observe overnight and plan to take her home tomorrow morning if she is stable History Interval history: I have seen and examined the patient at the bedside Patient's chart and medications reviewed No new events reported by the nursing Pending SNF placement/insurance authorization Vital signs noted Hospitalist Physical - Constitutional Vitals: Temp Pulse Resp BP Pulse Ox 98.1 F 60 22 129/63 99 06/29/21 07:48 06/29/21 07:48 06/29/21 07:48 06/29/21 07:48 06/29/21 07:48 General appearance: Present: mild distress, well-nourished, obese, other (Confused) - EENT Eyes: Present: PERRL, EOM intact - Neck Neck: Present: supple, normal ROM - Respiratory Respiratory effort: normal Respiratory: bilateral: diminished, rhonchi, negative: rales, wheezing - Cardiovascular Rhythm: regular Heart Sounds: Present: S1 & S2 - Extremities Extremities: no ischemia, No edema - Abdominal General gastrointestinal: soft, non-tender, non-distended, normal bowel sounds - Integumentary Integumentary: Present: clear, warm - Psychiatric Psychiatric: appropriate mood/affect, cooperative, other (Confused) - Neurologic Neurologic: moves all extremities, other (Dementia) HEART Score - HEART Score Troponin: Troponin T < 0.010 ng/mL (0.00-0.029) 06/22/21 06:51 Results - Labs CBC & Chem 7: 06/29/21 05:33 06/29/21 05:33 Labs: Laboratory Last Values WBC 5.9 K/mm3 (4.5-11.0) 06/29/21 05:33 RBC 4.53 M/mm3 (3.65-5.03) 06/29/21 05:33 Hgb 11.8 gm/dl (10.1-14.3) 06/29/21 05:33 Hct 36.9 % (30.3-42.9) 06/29/21 05:33 MCV 82 fl (79-97) 06/29/21 05:33 MCH 26 pg (28-32) L 06/29/21 05:33 MCHC 32 % (30-34) 06/29/21 05:33 RDW 16.0 % (13.2-15.2) H 06/29/21 05:33 Plt Count 120 K/mm3 (140-440) L 06/29/21 05:33 Lymph % (Auto) 12.7 % (13.4-35.0) L 06/27/21 04:50 [place] % (Auto) Blue Line Operator 06/29/21 05:33 Eos % (Auto) 0.6 % (0.0-4.3) 06/27/21 04:50 Baso % (Auto) 0.1 % (0.0-1.8) 06/27/21 04:50 Lymph # (Auto) 0.7 K/mm3 (1.2-5.4) L 06/27/21 04:50 [place] # (Auto) 0.9 K/mm3 (0.0-0.8) H 06/27/21 04:50 Eos # (Auto) 0.0 K/mm3 (0.0-0.4) 06/27/21 04:50 Baso # (Auto) 0.0 K/mm3 (0.0-0.1) 06/27/21 04:50 Add Manual Diff Complete 06/29/21 05:33 Total Counted 100 06/29/21 05:33 Seg Neutrophils % 70.7 % (40.0-70.0) H 06/27/21 04:50 Seg Neuts % (Manual) 69.0 % (40.0-70.0) 06/29/21 05:33 Band Neutrophils % 1.0 % 06/29/21 05:33 Lymphocytes % (Manual) 14.0 % (13.4-35.0) 06/29/21 05:33 Reactive Lymphs % (Man) 0 % 06/29/21 05:33 Monocytes % (Manual) 11.0 % (0.0-7.3) H 06/29/21 05:33 Eosinophils % (Manual) 5.0 % (0.0-4.3) H 06/29/21 05:33 Basophils % (Manual) 0 % (0.0-1.8) 06/29/21 05:33 Metamyelocytes % 0 % 06/29/21 05:33 Myelocytes % 0 % 06/29/21 05:33 Promyelocytes % 0 % 06/29/21 05:33 Blast Cells % 0 % 06/29/21 05:33 Nucleated RBC % Not Reportable 06/29/21 05:33 Seg Neutrophils # 4.1 K/mm3 (1.8-7.7) 06/27/21 04:50 Seg Neutrophils # Man 4.1 K/mm3 (1.8-7.7) 06/29/21 05:33 Band Neutrophils # 0.1 K/mm3 06/29/21 05:33 Lymphocytes # (Manual) 0.8 K/mm3 (1.2-5.4) L 06/29/21 05:33 Abs React Lymphs (Man) 0.0 K/mm3 06/29/21 05:33 Monocytes # (Manual) 0.6 K/mm3 (0.0-0.8) 06/29/21 05:33 Eosinophils # (Manual) 0.3 K/mm3 (0.0-0.4) 06/29/21 05:33 Basophils # (Manual) 0.0 K/mm3 (0.0-0.1) 06/29/21 05:33 Metamyelocytes # 0.0 K/mm3 06/29/21 05:33 Myelocytes # 0.0 K/mm3 06/29/21 05:33 Promyelocytes # 0.0 K/mm3 06/29/21 05:33 Blast Cells # 0.0 K/mm3 06/29/21 05:33 WBC Morphology Not Reportable 06/29/21 05:33 Hypersegmented Neuts Not Reportable 06/29/21 05:33 Hyposegmented Neuts Not Reportable 06/29/21 05:33 Hypogranular Neuts Not Reportable 06/29/21 05:33 Smudge Cells Not Reportable 06/29/21 05:33 Toxic Granulation Not Reportable 06/29/21 05:33 Toxic Vacuolation Not Reportable 06/29/21 05:33 Dohle Bodies Not Reportable 06/29/21 05:33 Pelger-Huet Anomaly Not Reportable 06/29/21 05:33 No Rods Not Reportable 06/29/21 05:33 Platelet Estimate Consistent w auto 06/29/21 05:33 Clumped Platelets Not Reportable 06/29/21 05:33 Plt Clumps, EDTA Not Reportable 06/29/21 05:33 Large Platelets Few 06/29/21 05:33 Giant Platelets Not Reportable 06/29/21 05:33 Platelet Satelliting Not Reportable 06/29/21 05:33 Plt Morphology Comment Not Reportable 06/29/21 05:33 RBC Morphology Normal 06/29/21 05:33 Dimorphic RBCs Not Reportable 06/29/21 05:33 Polychromasia Not Reportable 06/29/21 05:33 Hypochromasia Not Reportable 06/29/21 05:33 Poikilocytosis Not Reportable 06/29/21 05:33 Anisocytosis Not Reportable 06/29/21 05:33 Microcytosis Not Reportable 06/29/21 05:33 Macrocytosis Not Reportable 06/29/21 05:33 Spherocytes Not Reportable 06/29/21 05:33 Pappenheimer Bodies Not Reportable 06/29/21 05:33 Sickle Cells Not Reportable 06/29/21 05:33 Target Cells Not Reportable 06/29/21 05:33 Tear Drop Cells Not Reportable 06/29/21 05:33 Ovalocytes Not Reportable 06/29/21 05:33 Helmet Cells Not Reportable 06/29/21 05:33 [place] Bodies Not Reportable 06/29/21 05:33 Strong Rings Not Reportable 06/29/21 05:33 Jr Cells Not Reportable 06/29/21 05:33 Bite Cells Not Reportable 06/29/21 05:33 Crenated Cell Not Reportable 06/29/21 05:33 Elliptocytes Not Reportable 06/29/21 05:33 Acanthocytes (Spur) Not Reportable 06/29/21 05:33 Rouleaux Not Reportable 06/29/21 05:33 Hemoglobin C Crystals Not Reportable 06/29/21 05:33 Schistocytes Not Reportable 06/29/21 05:33 Malaria parasites Not Reportable 06/29/21 05:33 Marques Bodies Not Reportable 06/29/21 05:33 Hem Pathologist Commnt No 06/29/21 05:33 PT 15.9 Sec. (12.2-14.9) H 06/22/21 06:51 INR 1.14 (0.87-1.13) H 06/22/21 06:51 ABG pH 7.326 pH Units (7.350-7.450) L 06/24/21 08:50 ABG pCO2 53.8 mm Hg 06/24/21 08:50 ABG pO2 69.6 mm Hg (80.0-90.0) L 06/24/21 08:50 ABG HCO3 27.5 mmol/L (20.0-26.0) H 06/24/21 08:50 ABG O2 Saturation 94.7 % (95.0-99.0) L 06/24/21 08:50 ABG O2 Content 14.7 (0.0-44) 06/24/21 08:50 ABG Base Excess 0.8 mmol/L (-2.0-3.0) 06/24/21 08:50 ABG Hemoglobin 11.3 gm/dl (12.0-16.0) L 06/24/21 08:50 ABG Carboxyhemoglobin 1.5 % (0.0-5.0) 06/24/21 08:50 ABG Methemoglobin 0.5 % (0.0-1.5) 06/24/21 08:50 VBG pH 7.337 (7.320-7.420) 06/22/21 06:51 Oxyhemoglobin 92.8 % (95.0-99.0) L 06/24/21 08:50 FiO2 21 % 06/24/21 08:50 Sodium 141 mmol/L (137-145) 06/29/21 05:33 Potassium 4.1 mmol/L (3.6-5.0) 06/29/21 05:33 Chloride 101.3 mmol/L (98-107) 06/29/21 05:33 Carbon Dioxide 30 mmol/L (22-30) 06/29/21 05:33 Anion Gap 14 mmol/L 06/29/21 05:33 BUN 60 mg/dL (7-17) H 06/29/21 05:33 Creatinine 1.3 mg/dL (0.6-1.2) H 06/29/21 05:33 Estimated GFR 49 ml/min 06/29/21 05:33 BUN/Creatinine Ratio 46 % 06/29/21 05:33 Glucose 168 mg/dL (65-100) H 06/29/21 05:33 POC Glucose 196 mg/dL (70-105) H 06/28/21 20:47 Hemoglobin A1c 6.6 % (4-6) H 06/22/21 06:52 Calcium 7.8 mg/dL (8.4-10.2) L 06/29/21 05:33 Magnesium 2.20 mg/dL (1.7-2.3) 06/27/21 04:50 Total Bilirubin 0.70 mg/dL (0.1-1.2) 06/22/21 06:51 AST 19 units/L (5-40) 06/22/21 06:51 ALT 12 units/L (7-56) 06/22/21 06:51 Alkaline Phosphatase 108 units/L (35-129) 06/22/21 06:51 Total Creatine Kinase 53 units/L (30-135) 06/22/21 06:51 CK-MB (CK-2) 1.8 ng/mL (0.0-4.0) 06/22/21 06:51 CK-MB (CK-2) Rel Index 3.3 (0-4) 06/22/21 06:51 Troponin T < 0.010 ng/mL (0.00-0.029) 06/22/21 06:51 NT-Pro-B Natriuret Pep 9614 pg/mL (0-900) H 06/22/21 06:52 Total Protein 7.7 g/dL (6.3-8.2) 06/22/21 06:51 Albumin 3.3 g/dL (3.9-5) L 06/22/21 06:51 Albumin/Globulin Ratio 0.8 % 06/22/21 06:51 TSH 2.970 mlU/mL (0.270-4.200) 06/22/21 06:51 Free T4 1.45 ng/dL (0.76-1.46) 06/22/21 06:51 Urine Color Yellow (Yellow) 06/25/21 14:00 Urine Turbidity Slightly-cloudy (Clear) 06/25/21 14:00 Urine pH 5.0 (5.0-7.0) 06/25/21 14:00 Ur Specific [place] 1.006 (1.003-1.030) 06/25/21 14:00 Urine Protein <15 mg/dl mg/dL (Negative) 06/25/21 14:00 Urine Glucose (UA) Neg mg/dL (Negative) 06/25/21 14:00 Urine Ketones Neg mg/dL (Negative) 06/25/21 14:00 Urine Blood Sm (Negative) 06/25/21 14:00 Urine Nitrite Neg (Negative) 06/25/21 14:00 Urine Bilirubin Neg (Negative) 06/25/21 14:00 Urine Urobilinogen < 2.0 mg/dL (<2.0) 06/25/21 14:00 Ur Leukocyte Esterase Neg (Negative) 06/25/21 14:00 Urine WBC (Auto) < 1.0 /HPF (0.0-6.0) 06/25/21 14:00 Urine RBC (Auto) < 1.0 /HPF (0.0-6.0) 06/25/21 14:00 Urine Bacteria (Auto) 1+ /HPF (Negative) 06/25/21 14:00 Urine Mucus 3+ /HPF 06/25/21 14:00 Urine Eosinophils None seen (None Seen) 06/25/21 14:00 Urine Creatinine 20.8 mg/dL (0.1-20.0) H 06/25/21 14:00 Protein/Creatinin Ratio 3.22 06/25/21 14:00 Urine Sodium 104 mmol/L 06/25/21 14:00 Urine Total Protein 67 mg/dL (5-11.8) H 06/25/21 14:00 Ayala/IV: Voiding Method External Female Catheter Active Medications - Current Medications Current Medications: Generic Name Dose Route Start Last Admin Trade Name Freq PRN Reason Stop Dose Admin Acetaminophen 650 mg 06/22/21 10:00 06/27/21 08:05 Acetaminophen 325 Mg Tab PO 650 mg Q4H PRN Administration Pain MILD(1-3)/Fever >100.5/[id number] Albuterol 2.5 mg 06/22/21 11:00 06/22/21 16:30 Albuterol 2.5 Mg/3 Ml Nebu IH 2.5 mg Q3HRT PRN Administration Shortness Of Breath Arformoterol Tartrate 15 mcg 06/22/21 11:00 06/28/21 20:37 Arformoterol 15 Mcg/2 Ml Nebu IH 15 mcg Q12HRT BRIANDA Administration Aspirin 81 mg 06/23/21 10:00 06/28/21 10:10 Aspirin 81 Mg Tab Chew PO 81 mg QDAY BRIANDA Administration Atorvastatin Calcium 40 mg 06/22/21 22:00 06/28/21 23:12 Atorvastatin 40 Mg Tab PO 40 mg QHS BRIANDA Administration Budesonide 0.5 mg 06/22/21 11:00 06/28/21 20:37 Budesonide 0.5 Mg/2 Ml Nebu IH 0.5 mg Q12HRT BRIANDA Administration Carvedilol 6.25 mg 06/28/21 10:00 06/28/21 23:13 Carvedilol 6.25 Mg Tab PO 6.25 mg BID BRIANDA Administration Dextrose 0 ml 06/22/21 10:37 Dextrose 10% *Hypoglycemia IV PRN PRN Hypoglycemia Docusate Sodium 100 mg 06/22/21 11:00 06/28/21 23:14 Docusate Sodium 100 Mg Cap PO Not Given BID [facility] Escitalopram Oxalate 10 mg 06/22/21 12:00 06/28/21 10:12 Escitalopram 10 Mg Tab PO 10 mg DAILY BRIANDA Administration Famotidine 20 mg 06/23/21 10:00 06/28/21 23:12 Famotidine 20 Mg Tab PO 20 mg BID BRIANDA Administration Furosemide 40 mg 06/27/21 10:00 06/28/21 10:12 Furosemide 40 Mg Tab PO 40 mg QDAY BRIANDA Administration Gabapentin 600 mg 06/22/21 11:00 06/28/21 23:12 Gabapentin 300 Mg Cap PO 600 mg BID BRIANDA Administration Heparin Sodium (Porcine) 5,000 unit 06/22/21 14:00 06/29/21 06:32 Heparin 5,000 Unit/1 Ml Vial SUB-Q 5,000 unit Q8HR BRIANDA Administration Hydralazine HCl 50 mg 06/27/21 10:00 06/28/21 23:12 Hydralazine 25 Mg Tab PO 50 mg BID BRIANDA Administration Insulin Glargine 30 units 06/22/21 22:00 06/28/21 23:11 Insulin Glargine 100 Units/Ml SUB-Q 30 units QHS BRIANDA Administration Insulin Human Lispro 0 unit 06/22/21 11:30 06/28/21 23:11 Insulin Lispro 100 Unit/Ml SUB-Q 2 unit ACHS [facility] Administration Protocol Insulin Human Regular 10 units 06/25/21 11:30 06/28/21 17:08 Insulin Regular, Human 100 Units/1 Ml SUB-Q Not Given AC BRIANDA Isosorbide Mononitrate 30 mg 06/22/21 11:00 06/28/21 10:11 Isosorbide Mononitrate Er 30 Mg Tab PO 30 mg QDAY BRIANDA Administration Metoclopramide HCl 10 mg 06/22/21 11:00 Metoclopramide 10 Mg/2 Ml Inj IV Q6H PRN Nausea And Vomiting Miscellaneous Medication 1 syr 07/05/21 11:00 Alirocumab [Praluent Pen] SUB-Q Q2W BRIANDA Morphine Sulfate 2 mg 06/22/21 11:00 06/27/21 09:13 Morphine 2 Mg/1 Ml Inj IV 2 mg Q4H PRN Administration Pain, Moderate (4-6) Naloxone HCl 0.1 mg 06/22/21 11:00 Naloxone 0.4 Mg/1 Ml Inj IV Q2MIN PRN Res Rate </= 8 or 02 SAT < 92% Nitroglycerin 0.4 mg 06/22/21 11:00 Nitroglycerin 0.4 Mg Tab Subl SL .Q5MIN PRN Chest Pain Ondansetron HCl 4 mg 06/22/21 11:00 Ondansetron 4 Mg/2 Ml Inj IV Q4H PRN Nausea And Vomiting Potassium Chloride 10 meq 06/22/21 12:00 06/28/21 10:13 Potassium Chloride Er 10 Meq Tab PO 10 meq QDAY BRIANDA Administration Senna 8.6 mg 06/22/21 11:00 06/28/21 23:14 Sennosides 8.6 Mg Tab PO Not Given Q12HR BRIANDA Sodium Chloride 10 ml 06/22/21 10:00 06/28/21 23:14 Sodium Chloride 0.9% 10 Ml Flush Syringe IV 10 ml BID BRIANDA Administration Sodium Chloride 10 ml 06/22/21 11:00 Sodium Chloride 0.9% 10 Ml Flush Syringe IV PRN PRN LINE FLUSH Zolpidem Tartrate 5 mg 06/25/21 22:00 Zolpidem 5 Mg Tab PO QHS PRN Sleep Nutrition/Malnutrition Assess - Dietary Evaluation Nutrition/Malnutrition Findings: Nutrition Notes Start: 06/22/21 14:28 Freq: Status: Active Protocol: Document 06/22/21 14:28 JEEVAN (Rec: 06/22/21 14:42 JEEVAN [id number]) Nutrition Notes Need for Assessment generated from: MD Order,Education Initial or Follow up Brief Note Current Diagnosis Coronary Artery Disease, Diabetes,Hypertension,Heart Failure,Respiratory Failure, Hyperlipidemia Other Pertinent Diagnosis Asthma, Systolic CHF, Paroxismal Atrial Fibrilation, Thrombocytopenia ... Current Diet Cardiac/Consistent Carbohydrates Diet (since L ). Height 5 ft 3 in Weight 117.934 kg [place] Body Weight (kg) 52.27 BMI 46.0 Weight change and time frame None reported at admission. Weight Status Morbidly Obese Subjective/Other Information RD consult for Nutrition Education. No reports available on Pt's PO intake of meals at the time . Pt still on critical condition , not a candidate for Nutrition Education at the time, will assess feasibility on F/U. Percent of energy/protein needs met: Prescribed Cardiac/Consistent Carbohydrates Diet provides for energy/protein needs (1, 977 Kcal/86 g) during LOS. Nutrition Intervention Follow-Up By: 06/29/21 Additional Comments Nutrition education will be provided on F/U, if feasible. Continue monitoring food tolerance, %PO intake of meals , and BM.
[2021-06-29] MEDS: BUDESONIDE 0.5 MG/2 ML NEBU IH SCH ×2 (09:09→20:51)
[2021-06-29] MEDS: ARFORMOTEROL 15 MCG/2 ML NEBU IH SCH ×2 (09:09→20:51)
[2021-06-29] MEDS: GABAPENTIN 300 MG CAP PO SCH ×2 (09:42→22:03)
[2021-06-29] MEDS: ESCITALOPRAM 10 MG TAB PO SCH (09:42)
[2021-06-29] MEDS: ASPIRIN 81 MG TAB CHEW PO SCH (09:43)
[2021-06-29] MEDS: carvediloL 6.25 MG TAB PO SCH ×2 (09:43→22:04)
[2021-06-29] MEDS: DOCUSATE SODIUM 100 MG CAP PO SCH ×2 (09:44→22:04)
[2021-06-29] MEDS: FUROSEMIDE 40 MG TAB PO SCH (09:44)
[2021-06-29] MEDS: POTASSIUM CHLORIDE ER 10 MEQ TAB PO SCH (09:44)
[2021-06-29] MEDS: FAMOTIDINE 20 MG TAB PO SCH ×2 (09:44→22:04)
[2021-06-29] MEDS: hydrALAZINE 25 MG TAB PO SCH ×2 (09:44→22:05)
[2021-06-29] MEDS: INSULIN REGULAR, HUMAN 100 UNITS/1 ML SUB-Q SCH ×3 (09:57→19:54)
[2021-06-29] MEDS: INSULIN LISPRO 100 UNIT/ML SUB-Q SCH ×4 (09:57→22:03)
[2021-06-29] MEDS: SENNOSIDES 8.6 MG TAB PO SCH ×2 (09:58→22:04)
--- NOTE | 2021-06-29 11:40 | Progress Note ---
Assessment and Plan 1. Acute kidney injury: Vasomotor LEXIE in the setting of hypotension / CHF. Urine studies ordered. Baseline renal function is unknown. Monitor renal function. Creatinine level is improving. Avoid nephrotoxic agents. Meds dosage based on GFR. 2. FEN: Volume overload, diuretics, monitor. Replete lytes. Monitor lytes and volume status. 3. Acute on chronic HFpEF: Cardiomyopathy. CHF pathway. Lasix. Followed by Cards. 4. Severe pulmonary hypertension. 5. Coronary artery disease 6. Hypertension: BP controlled. 7. Asthma. Subjective: Patient was seen and examined at the bedside. No new complaint. Examination: General appearance: well-developed, appears stated age, morbidly obese, no distress HEENT: atraumatic, pupils reacting to light Neck: trachea midline Respiratory: decreased breath sounds Heart: S1S2, regular, no murmur Abdomen: soft, obese, bowel sounds heard, NT Integumentary: no obvious rash Neurologic: AO, able to move extremities Ext: R AKA, ext and dependent edema Subjective Date of service: 06/29/21 Principal diagnosis: Acute on chronic diastolic heart failure, asthma exacerbation Objective - Vital Signs Vital signs: Vital Signs - 12hr 06/29/21 06/29/21 06/29/21 00:05 03:12 07:48 Temperature 98.0 F 98.1 F Pulse Rate 58 L 63 60 Pulse Rate [ Anterior Bilateral Throughout] Respiratory 15 16 22 Rate Respiratory Rate [Anterior Bilateral Throughout] Blood Pressure 140/59 129/63 O2 Sat by Pulse 100 98 99 Oximetry 06/29/21 06/29/21 06/29/21 08:00 09:10 09:39 Temperature Pulse Rate 62 Pulse Rate [ 92 H Anterior Bilateral Throughout] Respiratory Rate Respiratory 19 Rate [Anterior Bilateral Throughout] Blood Pressure O2 Sat by Pulse 99 Oximetry 06/29/21 06/29/21 09:43 09:44 Temperature Pulse Rate 62 63 Pulse Rate [ Anterior Bilateral Throughout] Respiratory Rate Respiratory Rate [Anterior Bilateral Throughout] Blood Pressure O2 Sat by Pulse Oximetry - Lab 06/29/21 05:33 06/29/21 05:33 Most recent lab results ABG pH 7.326 pH Units (7.350-7.450) L 06/24/21 08:50 ABG pCO2 53.8 mm Hg 06/24/21 08:50 ABG pO2 69.6 mm Hg (80.0-90.0) L 06/24/21 08:50 ABG HCO3 27.5 mmol/L (20.0-26.0) H 06/24/21 08:50 ABG O2 Saturation 94.7 % (95.0-99.0) L 06/24/21 08:50 Calcium 7.8 mg/dL (8.4-10.2) L 06/29/21 05:33 Magnesium 2.20 mg/dL (1.7-2.3) 06/27/21 04:50 Urine Creatinine 20.8 mg/dL (0.1-20.0) H 06/25/21 14:00 Urine Sodium 104 mmol/L 06/25/21 14:00 Urine Total Protein 67 mg/dL (5-11.8) H 06/25/21 14:00 Medications & Allergies - Medications Allergies/Adverse Reactions: Allergies ROSALVA Inhibitors Adverse Reaction (Intermediate, Verified 06/23/21 08:04) Angioedema patient is unaware of this allergy. informed it was on her profile added by MD Godwin. codeine Adverse Reaction (Verified 06/23/21 08:04) Nausea Home Medications: Home Medications Medication Instructions Recorded Confirmed Last Taken Type Escitalopram Oxalate [Lexapro] 10 mg PO QDAY 08/01/13 06/23/21 10/04/17 09:00 History Gabapentin [Neurontin] 600 mg PO BID 08/01/13 06/23/21 10/04/17 21:00 History Isosorbide Mononitrate [Isosorbide 30 mg PO QDAY 08/01/13 06/23/21 10/04/17 21:0 0 History Mononitrate ER] Zolpidem [Ambien] 5 mg PO QHS PRN 08/01/13 06/23/21 10/04/17 21:00 History metFORMIN [Glucophage] 500 mg PO BID 08/01/13 06/23/21 10/04/17 21:00 History AtorvaSTATin [Lipitor] 40 mg PO QHS 08/30/17 06/23/21 10/04/17 17:00 History Omeprazole 40 mg PO DAILY 08/30/17 06/23/21 10/04/17 09:00 History Alirocumab [Praluent Pen] 1 syr SQ Q2W 06/23/21 06/23/21 Unknown History Aspirin EC [Halfprin EC] 81 mg PO QDAY 06/23/21 06/23/21 Unknown History Fluticasone/Umeclidin/Vilanter 1 puff INHALATION DAILY 06/23/21 06/23/21 Unknown History [Gurdeep Sanchez 100-62.5-25(Nf)] Insulin Aspart [Novolog Flexpen] 0 unit SQ AC 06/23/21 06/23/21 Unknown History Metoclopramide [Reglan TAB] 10 mg PO BID 06/23/21 06/23/21 Unknown History Aspirin [Aspirin BABY CHEW TAB] 81 mg PO QDAY #30 tab.chew 06/27/21 Unknown Rx Furosemide [Lasix] 40 mg PO DAILY #30 06/27/21 06/23/21 Unknown Rx Hydralazine HCl 50 mg PO BID #60 06/27/21 06/23/21 Unknown Rx Insulin Detemir [Levemir Flextouch] 30 unit SQ QHS 30 Days 06/27/21 06/23/21 Unknown Rx Ipratropium/Albuterol Sulfate 1 spray IH BID #1 vial 06/27/21 06/23/21 Unknown Rx [Combivent Respimat] Potassium Chloride [K-Dur] 10 meq PO QDAY #30 tablet 06/27/21 Unknown Rx Prednisone [predniSONE 5 mg (6-Day 5 mg PO .TAPER #1 06/27/21 Unknown Rx Pack, 21 Tabs)] carvediloL [Coreg] 6.25 mg PO BID #60 tablet 06/27/21 Unknown Rx Active Medications: Generic Name Dose Route Start Last Admin Trade Name Luisq PRN Reason Stop Dose Admin Acetaminophen 650 mg 06/22/21 10:00 06/27/21 08:05 Acetaminophen 325 Mg Tab PO 650 mg Q4H PRN Administration Pain MILD(1-3)/Fever >100.5/GONZALEZ Albuterol 2.5 mg 06/22/21 11:00 06/22/21 16:30 Albuterol 2.5 Mg/3 Ml Nebu IH 2.5 mg Q3HRT PRN Administration Shortness Of Breath Arformoterol Tartrate 15 mcg 06/22/21 11:00 06/29/21 09:09 Arformoterol 15 Mcg/2 Ml Nebu IH 15 mcg Q12HRT BRIANDA Administration Aspirin 81 mg 06/23/21 10:00 06/29/21 09:43 Aspirin 81 Mg Tab Chew PO 81 mg QDAY BRIANDA Administration Atorvastatin Calcium 40 mg 06/22/21 22:00 06/28/21 23:12 Atorvastatin 40 Mg Tab PO 40 mg QHS BRIANDA Administration Budesonide 0.5 mg 06/22/21 11:00 06/29/21 09:09 Budesonide 0.5 Mg/2 Ml Nebu IH 0.5 mg Q12HRT BRIANDA Administration Carvedilol 6.25 mg 06/28/21 10:00 06/29/21 09:43 Carvedilol 6.25 Mg Tab PO 6.25 mg BID BRIANDA Administration Dextrose 0 ml 06/22/21 10:37 Dextrose 10% *Hypoglycemia IV PRN PRN Hypoglycemia Docusate Sodium 100 mg 06/22/21 11:00 06/29/21 09:44 Docusate Sodium 100 Mg Cap PO Not Given BID [facility] Escitalopram Oxalate 10 mg 06/22/21 12:00 06/29/21 09:42 Escitalopram 10 Mg Tab PO 10 mg DAILY BRIANDA Administration Famotidine 20 mg 06/23/21 10:00 06/29/21 09:44 Famotidine 20 Mg Tab PO 20 mg BID BRIANDA Administration Furosemide 40 mg 06/27/21 10:00 06/29/21 09:44 Furosemide 40 Mg Tab PO 40 mg QDAY BRIANDA Administration Gabapentin 600 mg 06/22/21 11:00 06/29/21 09:42 Gabapentin 300 Mg Cap PO 600 mg BID BRIANDA Administration Heparin Sodium (Porcine) 5,000 unit 06/22/21 14:00 06/29/21 06:32 Heparin 5,000 Unit/1 Ml Vial SUB-Q 5,000 unit Q8HR BRIANDA Administration Hydralazine HCl 50 mg 06/27/21 10:00 06/29/21 09:44 Hydralazine 25 Mg Tab PO Not Given BID [facility] Insulin Glargine 30 units 06/22/21 22:00 06/28/21 23:11 Insulin Glargine 100 Units/Ml SUB-Q 30 units QHS BRIANDA Administration Insulin Human Lispro 0 unit 06/22/21 11:30 06/29/21 09:57 Insulin Lispro 100 Unit/Ml SUB-Q 2 unit ACHS BRIANDA Administration Protocol Insulin Human Regular 10 units 06/25/21 11:30 06/29/21 09:57 Insulin Regular, Human 100 Units/1 Ml SUB-Q 10 units AC BRIANDA Administration Isosorbide Mononitrate 30 mg 06/22/21 11:00 06/29/21 09:39 Isosorbide Mononitrate Er 30 Mg Tab PO 30 mg QDAY BRIANDA Administration Metoclopramide HCl 10 mg 06/22/21 11:00 Metoclopramide 10 Mg/2 Ml Inj IV Q6H PRN Nausea And Vomiting Miscellaneous Medication 1 syr 07/05/21 11:00 Alirocumab [Praluent Pen] SUB-Q Q2W BRIANDA Morphine Sulfate 2 mg 06/22/21 11:00 06/27/21 09:13 Morphine 2 Mg/1 Ml Inj IV 2 mg Q4H PRN Administration Pain, Moderate (4-6) Naloxone HCl 0.1 mg 06/22/21 11:00 Naloxone 0.4 Mg/1 Ml Inj IV Q2MIN PRN Res Rate </= 8 or 02 SAT < 92% Nitroglycerin 0.4 mg 06/22/21 11:00 Nitroglycerin 0.4 Mg Tab Subl SL .Q5MIN PRN Chest Pain Ondansetron HCl 4 mg 06/22/21 11:00 Ondansetron 4 Mg/2 Ml Inj IV Q4H PRN Nausea And Vomiting Potassium Chloride 10 meq 06/22/21 12:00 06/29/21 09:44 Potassium Chloride Er 10 Meq Tab PO 10 meq QDAY BRIANDA Administration Senna 8.6 mg 06/22/21 11:00 06/29/21 09:58 Sennosides 8.6 Mg Tab PO Not Given Q12HR BRIANDA Sodium Chloride 10 ml 06/22/21 10:00 06/29/21 09:59 Sodium Chloride 0.9% 10 Ml Flush Syringe IV 10 ml BID BRIANDA Administration Sodium Chloride 10 ml 06/22/21 11:00 Sodium Chloride 0.9% 10 Ml Flush Syringe IV PRN PRN LINE FLUSH Zolpidem Tartrate 5 mg 06/25/21 22:00 Zolpidem 5 Mg Tab PO QHS PRN Sleep
--- NOTE | 2021-06-29 16:56 | Discharge Summary ---
Providers - Providers Date of Admission: 06/22/21 09:35 Date of discharge: 06/29/21 Attending physician: PAUL ARGUETA 06/22/21 Consult to Case Management [CONS] Routine Services Needed at Discharge: Compliance Representative Dealer Notified:: NO 06/22/21 09:35 Consult to Physician [CONS] Routine Comment: Consulting Provider: ELISSA PANTOJA Physician Instructions: Reason For Exam: HEART FAILURE 06/22/21 09:38 Consult to Dietitian/Nutrition [CONS] Routine Physician Instructions: Reason For Exam: Reason for Consult: Diet education 06/23/21 14:15 Consult to Physician [CONS] Routine Comment: Consulting Provider: OPAL NAPOLES Physician Instructions: Reason For Exam: chronic lymphedema 06/25/21 09:05 Consult to Physician [CONS] Routine Comment: Consulting Provider: OSVALDO SLAUGHTER Physician Instructions: Reason For Exam: LEXIE 06/25/21 12:56 Occupational Therapy Evaluate and Treat [CONS] Urgent Comment: Reason For Exam: OT to eval and treat Physical Therapy Evaluation and Treat [CONS] Urgent Comment: Reason For Exam: PT to eval and treat Primary care physician: KAILEY WOODARD Hospitalization Condition: Fair Pertinent studies: PET Perfusion Study (Rest/Stress) 06/14/2021- Negative Lexiscan . Normal rest and stress myocardial PET perfusion scan. No significant ischemia. No wall motion abnormality. Gated SPECT at rest 50%, stress 57%. Coronary flow reserve globally at 1.67 with RV dilatation noted. Echocardiogram 06/14/2021- Contrast was utilized. There is normal LV systolic function. LV wall thickness is mild to moderately increased. The estimated left ventricle ejection fraction is 55-60%. There is increased left atrial pressure and Grade II diastolic dysfunction. There is normal right ventricular size, wall dimension, and systolic function. The LA volume is moderately increased. There is no aortic valve stenosis or regurgitation. There is no mitral regurgitation. There is mild tricuspid regurgitation. There is severe pulmonary hypertension. The estimated RV systolic pressure is >60. There is no pulmonic regurgitation. There is a trace posterior pericardial effusion. No left ventricular thrombus noted with LV contrast images. Chest x-ray X-ray femur Lower extremity venous Doppler Hospital course: Patient is 71-year-old female with a past medical history of coronary artery disease, cardiomyopathy EF 55 to 60%, pulmonary hypertension, hypertension, asthma, right AKA, left leg chronic lymphadenopathy presented to the ED with a complaint of progressively worsening shortness of breath x1 week. Chest [id number], CHF. No pneumothorax Assessment: Acute CHF exacerbation- presumed diastolic -PET Perfusion Study (Rest/Stress) 06/14/2021- Negative Lexiscan -Echocardiogram 06/14/2021 ventricle ejection fraction is 55-60% ' Acute Hypoxic Respiratory failure -likely due to underlying CHF and asthma exacerbation Right stump pain ?CELLULITIS, treated with antibiotics Paraoxysmal Atrial Fibrillation, rate controlled HTN, continue current meds Hyperlipidemia, continue statin DM type II, consistent carb diet and continue routine home medications ASTHMA WITH ACUTE EXACERBATION, continue nebulizer, status post steroid GUIDO on CPAP, continue CPAP at night 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 Reduce diuresis, gentle IV fluid hydration DVT prophylaxis Disposition: HOME HEALTH CARE SERVICE Final Discharge Diagnosis (Prints w/discharge instructions): Acute hypoxic respiratory failure. Acute on chronic diastolic congestive heart failure. Paroxysmal atrial fibrillation rate controlled. Hypertension. Dyslipidemia. Type 2 diabetes mellitus. History of chronic asthma. Obstructive sleep apnea on CPAP at night. Right BKA 2010. Morbid obesity BMI 45.7. Thrombocytopenia. Chronic left lower extremity lymphedema. Acute kidney injury Time spent for discharge: 40 minutes Core Measure Documentation - Palliative Care Palliative Care/ Comfort Measures: Not Applicable - Core Measures Any of the following diagnoses?: none Exam - Constitutional Vitals: Temp Pulse Resp BP Pulse Ox 98.3 F 63 24 126/42 94 06/29/21 15:51 06/29/21 15:51 06/29/21 15:51 06/29/21 15:51 06/29/21 15:51 General appearance: Present: no acute distress, well-nourished, obese - EENT Eyes: Present: PERRL, EOM intact - Neck Neck: Present: supple, normal ROM - Respiratory Respiratory effort: normal Respiratory: bilateral: diminished, negative: rales, rhonchi, wheezing - Cardiovascular Rhythm: regular Heart Sounds: Present: S1 & S2 Plan Activity: advance as tolerated, fall precautions Diet: diabetic Additional Instructions: If you have worsening symptoms contact MD or go to the nearest emergency room as needed. Advised to continue CPAP at nights and as needed during daytime as before. Advised to follow primary care physician 5 to 7 days. Follow milk truck driver per schedule. Follow pulmonary per schedule. Follow neurology per schedule. Advised diet modification, exercise as tolerated, weight reduction when you are medically stable. Advised [id number] multivitamins, nutrition supplements like Ensure +1 can 3 times a day Follow up with: MIKE COLMENARES MD [Staff Physician] - 7 Days OSVALDO SLAUGHTER MD [Staff Physician] - 7 Days ELISSA PANTOJA MD [Staff Physician] - 3-5 Days NAWAF ELLISON MD [Staff Physician] - 7 Days Prescriptions: Aspirin [Aspirin BABY CHEW TAB] 81 mg PO QDAY #30 tab.chew carvediloL [Coreg] 6.25 mg PO BID #60 tablet Potassium Chloride [K-Dur] 10 meq PO QDAY #30 tablet Prednisone [predniSONE 5 mg (6-Day Pack, 21 Tabs)] 5 mg PO .TAPER #1
--- NOTE | 2021-06-29 17:01 | Event Note ---
Date: 06/29/21 I spoke with patient's daughter Ms. Modesto Sheppard, says that patient is is very weak and is shaking, she does not feel comfortable taking her home I explained patient's condition, treatment and discharge planning, also informed about the plans of SNF placement, pending approval authorization. She wants to take her home tomorrow morning if she is stable. We will inform the case management and we will closely monitor the patient overnight And discharge her home with home health tomorrow morning if stable. Discharge plan explained to the patient's daughter and patient's nurse
[2021-06-29] MEDS: INSULIN GLARGINE 100 UNITS/ML SUB-Q SCH (22:09)
[2021-06-30] MEDS: HEPARIN 5,000 UNIT/1 ML VIAL SUB-Q SCH (06:24)
[2021-06-30] MEDS: INSULIN REGULAR, HUMAN 100 UNITS/1 ML SUB-Q SCH ×2 (08:22→13:19)
[2021-06-30] MEDS: INSULIN LISPRO 100 UNIT/ML SUB-Q SCH ×2 (08:22→13:19)
[2021-06-30] MEDS: ARFORMOTEROL 15 MCG/2 ML NEBU IH SCH (09:05)
[2021-06-30] MEDS: BUDESONIDE 0.5 MG/2 ML NEBU IH SCH (09:05)
[2021-06-30 09:14] VITALS: BP 141/62
[2021-06-30] MEDS: ASPIRIN 81 MG TAB CHEW PO SCH (09:14)
[2021-06-30] MEDS: ESCITALOPRAM 10 MG TAB PO SCH (09:14)
[2021-06-30] MEDS: GABAPENTIN 300 MG CAP PO SCH (09:14)
[2021-06-30] MEDS: carvediloL 6.25 MG TAB PO SCH (09:15)
[2021-06-30] MEDS: SENNOSIDES 8.6 MG TAB PO SCH (09:15)
[2021-06-30] MEDS: DOCUSATE SODIUM 100 MG CAP PO SCH (09:15)
[2021-06-30] MEDS: hydrALAZINE 25 MG TAB PO SCH (09:15)
[2021-06-30] MEDS: FUROSEMIDE 40 MG TAB PO SCH (09:15)
[2021-06-30] MEDS: FAMOTIDINE 20 MG TAB PO SCH (09:15)
[2021-06-30] MEDS: POTASSIUM CHLORIDE ER 10 MEQ TAB PO SCH (09:15)
[2021-06-30] MEDS ORDERED: FLUCONAZOLE 100 MG TAB PO NR (09:30)
--- NOTE | 2021-06-30 13:40 | Progress Note ---
Assessment and Plan 1. Acute kidney injury: Vasomotor LEXIE in the setting of hypotension / CHF. Urine studies ordered. Baseline renal function is unknown. Monitor renal function. Creatinine level is improving. Avoid nephrotoxic agents. Meds dosage based on GFR. 2. FEN: Volume overload, diuretics, monitor. Replete lytes. Monitor lytes and volume status. 3. Acute on chronic HFpEF: Cardiomyopathy. CHF pathway. Lasix. Followed by Cards. 4. Severe pulmonary hypertension. 5. Coronary artery disease 6. Hypertension: BP controlled. 7. Asthma. F/u in 2 weeks. Subjective: Patient was seen and examined at the bedside. Examination: General appearance: well-developed, appears stated age, morbidly obese, no distress HEENT: atraumatic, pupils reacting to light Neck: trachea midline Respiratory: decreased breath sounds Heart: S1S2, regular, no murmur Abdomen: soft, obese, bowel sounds heard, NT Integumentary: no obvious rash Neurologic: AO, able to move extremities Ext: R AKA, ext and dependent edema Subjective Date of service: 06/30/21 Principal diagnosis: Acute on chronic diastolic heart failure, asthma exacerbation Objective - Vital Signs Vital signs: Vital Signs - 12hr 06/30/21 06/30/21 06/30/21 03:31 07:49 08:00 Temperature 98.4 F 98.1 F Pulse Rate 64 61 Pulse Rate [ 62 Anterior Bilateral Throughout] Respiratory 14 18 Rate Respiratory 19 Rate [Anterior Bilateral Throughout] Blood Pressure 122/53 141/62 O2 Sat by Pulse 98 100 Oximetry 06/30/21 06/30/21 06/30/21 09:06 09:14 10:00 Temperature Pulse Rate Pulse Rate [ Anterior Bilateral Throughout] Respiratory Rate Respiratory Rate [Anterior Bilateral Throughout] Blood Pressure O2 Sat by Pulse 96 94 98 Oximetry - Lab 06/29/21 05:33 06/29/21 05:33 Most recent lab results ABG pH 7.326 pH Units (7.350-7.450) L 06/24/21 08:50 ABG pCO2 53.8 mm Hg 06/24/21 08:50 ABG pO2 69.6 mm Hg (80.0-90.0) L 06/24/21 08:50 ABG HCO3 27.5 mmol/L (20.0-26.0) H 06/24/21 08:50 ABG O2 Saturation 94.7 % (95.0-99.0) L 06/24/21 08:50 Calcium 7.8 mg/dL (8.4-10.2) L 06/29/21 05:33 Magnesium 2.20 mg/dL (1.7-2.3) 06/27/21 04:50 Urine Creatinine 20.8 mg/dL (0.1-20.0) H 06/25/21 14:00 Urine Sodium 104 mmol/L 06/25/21 14:00 Urine Total Protein 67 mg/dL (5-11.8) H 06/25/21 14:00 Medications & Allergies - Medications Allergies/Adverse Reactions: Allergies ROSALVA Inhibitors Adverse Reaction (Intermediate, Verified 06/23/21 08:04) Angioedema patient is unaware of this allergy. informed it was on her profile added by MD Godwin. codeine Adverse Reaction (Verified 06/23/21 08:04) Nausea Home Medications: Home Medications Medication Instructions Recorded Confirmed Last Taken Type Escitalopram Oxalate [Lexapro] 10 mg PO QDAY 08/01/13 06/23/21 10/04/17 09:00 History Gabapentin [Neurontin] 600 mg PO BID 08/01/13 06/23/21 10/04/17 21:00 History Isosorbide Mononitrate [Isosorbide 30 mg PO QDAY 08/01/13 06/23/21 10/04/17 21:00 History Mononitrate ER] Zolpidem [Ambien] 5 mg PO QHS PRN 08/01/13 06/23/21 10/04/17 21:00 History metFORMIN [Glucophage] 500 mg PO BID 08/01/13 06/23/21 10/04/17 21:00 History AtorvaSTATin [Lipitor] 40 mg PO QHS 08/30/17 06/23/21 10/04/17 17:00 History Omeprazole 40 mg PO DAILY 08/30/17 06/23/21 10/04/17 09:00 History Alirocumab [Praluent Pen] 1 syr SQ Q2W 06/23/21 06/23/21 Unknown History Aspirin EC [Halfprin EC] 81 mg PO QDAY 06/23/21 06/23/21 Unknown History Fluticasone/Umeclidin/Vilanter 1 puff INHALATION DAILY 06/23/21 06/23/21 Unknown History [Trelegy Ellipta 100-62.5-25(Nf)] Insulin Aspart [Novolog Flexpen] 0 unit SQ AC 06/23/21 06/23/21 Unknown History Metoclopramide [Reglan TAB] 10 mg PO BID 06/23/21 06/23/21 Unknown History Aspirin [Aspirin BABY CHEW TAB] 81 mg PO QDAY #30 tab.chew 06/27/21 Unknown Rx Furosemide [Lasix] 40 mg PO DAILY #30 06/27/21 06/23/21 Unknown Rx Hydralazine HCl 50 mg PO BID #60 06/27/21 06/23/21 Unknown Rx Insulin Detemir [Levemir Flextouch] 30 unit SQ QHS 30 Days 06/27/21 06/23/21 Unknown Rx Ipratropium/Albuterol Sulfate 1 spray IH BID #1 vial 06/27/21 06/23/21 Unknown Rx [Combivent Respimat] Potassium Chloride [K-Dur] 10 meq PO QDAY #30 tablet 06/27/21 Unknown Rx Prednisone [predniSONE 5 mg (6-Day 5 mg PO .TAPER #1 06/27/21 Unknown Rx Pack, 21 Tabs)] carvediloL [Coreg] 6.25 mg PO BID #60 tablet 06/27/21 Unknown Rx Active Medications: Generic Name Dose Route Start Last Admin Trade Name Freq PRN Reason Stop Dose Admin Acetaminophen 650 mg 06/22/21 10:00 06/27/21 08:05 Acetaminophen 325 Mg Tab PO 650 mg Q4H PRN Administration Pain MILD(1-3)/Fever >100.5/GONZALEZ Albuterol 2.5 mg 06/22/21 11:00 06/22/21 16:30 Albuterol 2.5 Mg/3 Ml Nebu IH 2.5 mg Q3HRT PRN Administration Shortness Of Breath Arformoterol Tartrate 15 mcg 06/22/21 11:00 06/30/21 09:05 Arformoterol 15 Mcg/2 Ml Nebu IH 15 mcg Q12HRT BRIANDA Administration Aspirin 81 mg 06/23/21 10:00 06/30/21 09:14 Aspirin 81 Mg Tab Chew PO 81 mg QDAY BRIANDA Administration Atorvastatin Calcium 40 mg 06/22/21 22:00 06/29/21 22:03 Atorvastatin 40 Mg Tab PO 40 mg QHS BRIANDA Administration Budesonide 0.5 mg 06/22/21 11:00 06/30/21 09:05 Budesonide 0.5 Mg/2 Ml Nebu IH 0.5 mg Q12HRT BRIANDA Administration Carvedilol 6.25 mg 06/28/21 10:00 06/30/21 09:15 Carvedilol 6.25 Mg Tab PO 6.25 mg BID BRIANDA Administration Dextrose 0 ml 06/22/21 10:37 Dextrose 10% *Hypoglycemia IV PRN PRN Hypoglycemia Docusate Sodium 100 mg 06/22/21 11:00 06/30/21 09:15 Docusate Sodium 100 Mg Cap PO 100 mg BID BRIANDA Administration Escitalopram Oxalate 10 mg 06/22/21 12:00 06/30/21 09:14 Escitalopram 10 Mg Tab PO 10 mg DAILY BRIANDA Administration Famotidine 20 mg 06/23/21 10:00 06/30/21 09:15 Famotidine 20 Mg Tab PO 20 mg BID BRIANDA Administration Furosemide 40 mg 06/27/21 10:00 06/30/21 09:15 Furosemide 40 Mg Tab PO 40 mg QDAY BRIANDA Administration Gabapentin 600 mg 06/22/21 11:00 06/30/21 09:14 Gabapentin 300 Mg Cap PO 600 mg BID BRIANDA Administration Heparin Sodium (Porcine) 5,000 unit 06/22/21 14:00 06/30/21 06:24 Heparin 5,000 Unit/1 Ml Vial SUB-Q 5,000 unit Q8HR BRIANDA Administration Hydralazine HCl 50 mg 06/27/21 10:00 06/30/21 09:15 Hydralazine 25 Mg Tab PO 50 mg BID BRIANDA Administration Insulin Glargine 30 units 06/22/21 22:00 06/29/21 22:09 Insulin Glargine 100 Units/Ml SUB-Q 30 units QHS BRIANDA Administration Insulin Human Lispro 0 unit 06/22/21 11:30 06/30/21 13:19 Insulin Lispro 100 Unit/Ml SUB-Q Not Given ACHS [facility] Protocol Insulin Human Regular 10 units 06/25/21 11:30 06/30/21 13:19 Insulin Regular, Human 100 Units/1 Ml SUB-Q Not Given AC [facility] Isosorbide Mononitrate 30 mg 06/22/21 11:00 06/30/21 09:15 Isosorbide Mononitrate Er 30 Mg Tab PO 30 mg QDAY BRIANDA Administration Metoclopramide HCl 10 mg 06/22/21 11:00 Metoclopramide 10 Mg/2 Ml Inj IV Q6H PRN Nausea And Vomiting Miscellaneous Medication 1 syr 07/05/21 11:00 Alirocumab [Praluent Pen] SUB-Q Q2W BRIANDA Morphine Sulfate 2 mg 06/22/21 11:00 06/27/21 09:13 Morphine 2 Mg/1 Ml Inj IV 2 mg Q4H PRN Administration Pain, Moderate (4-6) Naloxone HCl 0.1 mg 06/22/21 11:00 Naloxone 0.4 Mg/1 Ml Inj IV Q2MIN PRN Res Rate </= 8 or 02 SAT < 92% Nitroglycerin 0.4 mg 06/22/21 11:00 Nitroglycerin 0.4 Mg Tab Subl SL .Q5MIN PRN Chest Pain Ondansetron HCl 4 mg 06/22/21 11:00 Ondansetron 4 Mg/2 Ml Inj IV Q4H PRN Nausea And Vomiting Potassium Chloride 10 meq 06/22/21 12:00 06/30/21 09:15 Potassium Chloride Er 10 Meq Tab PO 10 meq QDAY BRIANDA Administration Senna 8.6 mg 06/22/21 11:00 06/30/21 09:15 Sennosides 8.6 Mg Tab PO Not Given Q12HR BRIANDA Sodium Chloride 10 ml 06/22/21 10:00 06/30/21 09:15 Sodium Chloride 0.9% 10 Ml Flush Syringe IV 10 ml BID BRIANDA Administration Sodium Chloride 10 ml 06/22/21 11:00 Sodium Chloride 0.9% 10 Ml Flush Syringe IV PRN PRN LINE FLUSH Zolpidem Tartrate 5 mg 06/25/21 22:00 Zolpidem 5 Mg Tab PO QHS PRN Sleep
[2021-07-05] MEDS ORDERED: ALIROCUMAB 75 MG/ML SUB-Q SCH (11:00)
== END 2021-06-30 15:59 | disposition home health service (06) | DRG 291 ==
LOC: ED 06:18 → 4A 09:35
PROVIDERS: ADMIT Internal Medicine; ATTEND Internal Medicine
PROC: 5A09457 Assistance with Respiratory Ventilation, 24-96 Consecutive Hours, Continuous Positive Airway Pressure (ICD-10-PCS; 2021-06-23)
PROC: 4A033R1 Measurement of Arterial Saturation, Peripheral, Percutaneous Approach (ICD-10-PCS; principal; 2021-06-24)
PROC: 5A09457 Assistance with Respiratory Ventilation, 24-96 Consecutive Hours, Continuous Positive Airway Pressure (ICD-10-PCS; 2021-06-28)
DX: I11.0 Hypertensive heart disease with heart failure (principal); I50.33 Acute on chronic diastolic (congestive) heart failure; J96.01 Acute respiratory failure with hypoxia; N17.0 Acute kidney failure with tubular necrosis; J45.901 Unspecified asthma with (acute) exacerbation; Z68.42 Body mass index [BMI] 45.0-49.9, adult; L03.115 Cellulitis of right lower limb; G47.33 Obstructive sleep apnea (adult) (pediatric); E11.9 Type 2 diabetes mellitus without complications; K21.9 Gastro-esophageal reflux disease without esophagitis; I25.10 Atherosclerotic heart disease of native coronary artery without angina pectoris; E78.5 Hyperlipidemia, unspecified; I48.0 Paroxysmal atrial fibrillation; D69.6 Thrombocytopenia, unspecified; M19.90 Unspecified osteoarthritis, unspecified site; I27.20 Pulmonary hypertension, unspecified; I42.9 Cardiomyopathy, unspecified; E66.01 Morbid (severe) obesity due to excess calories; Z89.611 Acquired absence of right leg above knee; Z79.84 Long term (current) use of oral hypoglycemic drugs; Z90.710 Acquired absence of both cervix and uterus; Z90.49 Acquired absence of other specified parts of digestive tract
CPT/HCPCS: 36415; 36600; 71045; 80048; 80053; 81001; 82550; 82553; 82570; 82803; 82805; 82962; 83036; 83735; 83880; 84156; 84300; 84439; 84443; 84484; 85007; 85025; 85610; 89050; 93005; 94640; 94660; 94760; G0378; J3490; Q9967; J1644; J1815; J1940; J2270; J2920; J2930; J7040

== ENCOUNTER 2021-12-15 20:03 | Emergency (ER) | payer MEDICARE ==
--- NOTE | 2021-12-15 21:42 | XRay Report ---
CHEST 2 VIEWS INDICATION / CLINICAL INFORMATION: CHEST PAIN. COMPARISON: 06/22/2021 FINDINGS: SUPPORT DEVICES: None. HEART / MEDIASTINUM: There is enlargement of the cardiac silhouette. Atherosclerotic calcifications a re noted in the aortic arch. LUNGS / PLEURA: No significant pulmonary or pleural abnormality. No pneumothorax. ADDITIONAL FINDINGS: Degenerative changes noted in the left shoulder. IMPRESSION: 1. No acute findings. There is persistent enlargement of the cardiac silhouette. Signer Name: Jacobo Galvez MD Signed: 12/15/2021 9:37 PM Workstation Name: [id number]
[2021-12-15 21:49] LABS: Basophils # (Auto) 0.1 K/mm3 (0.0-0.1); Basophils % (Auto) 1.3 % (0.0-1.8); Eosinophils # (Auto) 1.1 K/mm3 (0.0-0.4); Eosinophils % (Auto) 15.1 % (0.0-4.3); Hematocrit 35.1 % (30.3-42.9); Hemoglobin 11.5 gm/dl (10.1-14.3); Lymphocytes # (Auto) 1.7 K/mm3 (1.2-5.4); Lymphocytes % (Auto) 21.8 % (13.4-35.0); Mean Corpuscular HGB Conc 33 % (30-34); Mean Corpuscular Volume 89 fl (79-97); Monocytes # (Auto) 0.9 K/mm3 (0.0-0.8); Monocytes % (Auto) 12.1 % (0.0-7.3); Platelet Count 130 K/mm3 (140-440); Red Blood Count 3.97 M/mm3 (3.65-5.03)
[2021-12-15 22:16] LABS: Alanine Aminotransferase 24 units/L (7-56); Albumin 3.5 g/dL (3.9-5); BUN/Creatinine Ratio 18; Blood Urea Nitrogen 25 mg/dL (7-17); Calcium 8.3 mg/dL (8.4-10.2)
[2021-12-15 22:17] LABS: Hemolysis Index 113
[2021-12-16] MEDS ORDERED: ALBUTEROL 2.5 MG/3 ML NEBU IH ONE (08:21)
[2021-12-16] MEDS ORDERED: IPRATROPIUM 0.02% NEBU 2.5 ML IH ONE (08:21)
--- NOTE | 2021-12-16 10:39 | Electrocardiograph Report ---
[facility] Test Date: 2021-12-15 Test Time: 20:08:37 Pat Name: JOSE CONTE Department: Room: Gender: F Quick Technician: [id number] : 1950 Requested By: TEJ MIRELES Order Number: [id number] Reading MD: Leoncio Ugalde Measurements Intervals [place] Rate: 73 P: 52 MA: 137 QRS: 24 QRSD: 83 T: 269 QT: 402 QTc: 442 Interpretive Statements Sinus rhythm Supraventricular bigeminy Consider anteroseptal infarct Nonspecific T abnormalities, lateral leads Compared to ECG 06/22/2021 09:04:58 Atrial premature complex(es) now present Myocardial infarct finding now present T-wave abnormality now present Early repolarization no longer present Possible ischemia no longer present Electronically Signed On 12-16-2021 10:39:01 EDT by Leoncio Ugalde
== END 2021-12-16 03:36 | disposition left against medical advice (07) ==
LOC: ED 20:03
DX: R07.89 Other chest pain (principal); Z53.21 Procedure and treatment not carried out due to patient leaving prior to being seen by health care provider
CPT/HCPCS: 36415; 71046; 80053; 84484; 85025; 93005